=== PATIENT | female | born 1945 | race Caucasian/White ===

== ENCOUNTER 2019-09-19 12:20 | Inpatient (IN) | payer MEDICARE ==
[2019-09-19 13:06] LABS: #Basophils 0.1 thou/uL (0.0-0.2); #Eosinphils 0.1 thou/uL (0.0-0.7); #Lymphocytes 1.9 thou/uL (1.20-3.40); #Monocytes 0.4 thou/uL (0.11-0.59); #Neutrophils 3.8 thou/uL (1.40-6.50); %Basophils 0.8 % (0.0-1.0); %Eosinophils 1.7 % (0.0-10.0); %Lymphocytes 30.4 % (21.0-51.0); %Monocytes 6.8 % (0.0-10.0); %Neutrophils 60.3 % (42.0-75.0); Hemoglobin 10.3 g/dL (12.0-16.0); Mean Corpuscular HGB CONC 34.7 g/dL (32.0-36.0); Mean Corpuscular Hemoglobin 36.5 pg (27.0-31.0); Mean Platelet Volume 7.9 fL (7.4-10.4); Platelet Count 230 thou/uL (130-400); RBC Distribution Width 13.5 % (11.5-14.5); Red Blood Cell (RBC) Count 2.82 mill/uL (4.20-5.40); White Blood Cell (WBC) Count 6.3 thou/uL (4.8-10.8)
[2019-09-19 13:26] LABS: ALT (SGPT) 9 U/L (8-55); AST (SGOT) 11 U/L (5-34); Albumin 3.7 g/dL (3.4-4.8); Alkaline Phosphatase 113 U/L (40-110); Anion Gap 12 mmol/L (10-20); BUN (Urea Nitrogen) 17 mg/dL (9.8-20.1); Bilirubin, Total 1.1 mg/dL (0.2-1.2); CK (CPK) 121 U/L (29-168); Calc. Creatinine Clearance 0 mL/min (70-130); Calcium 9.4 mg/dL (7.8-10.44); Carbon Dioxide 26 mmol/L (23-31); Chloride 104 mmol/L (98-107); Estimated GFR-MDRD 54; Glucose 430 mg/dL (83-110); Lipase 14 U/L (8-78); Protein, Total 5.7 g/dL (6.0-8.3); Sodium 138 mmol/L (136-145)
--- NOTE | 2019-09-19 13:27 | RAD ---
XR Chest 1 View Portable HISTORY: Chest pain COMPARISON: None. FINDINGS: Heart size is within normal limits. There are atherosclerotic changes of the aorta. The abdoulaye gs are clear of infiltrates. IMPRESSION: No active intrathoracic disease.
[2019-09-19 13:48] LABS: CKMB 1.2 ng/mL (0-6.6)
[2019-09-19] MEDS ORDERED: Nitroglycerin 2% Ointment 1 INCH/1 GM Packet ONE (14:08)
--- NOTE | 2019-09-19 14:28 | CT ---
CT HEAD WITHOUT CONTRAST: INDICATIONS: Altered mental status. FINDINGS: There is moderate chronic microvascular ischemic disease of the cerebral symptomatic. Compensatory di latation of the ventricular system is present. Notably, the left frontal horn with an adjacent remote lacunar infarction at the left basal ganglia. Global atrophy is present, mild in degree. The imaged paranasal sinuses are clear. IMPRESSION: 1. No acute intracranial hemorrhage or mass effect. 2. Moderate chronic ischemic disease, remote lacunar infarction and parenchymal atrophy. POS: [facility]
[2019-09-19] MEDS ORDERED: Aspirin Chewable 81 MG TAB ONE (14:34)
[2019-09-19 15:20] LABS: Bacteria/HPF None Seen HPF (None Seen); Bilirubin Negative (Negative); Blood, Urine Negative (Negative); Clarity Clear (Clear); Glucose, Urine (Dipstick) Greater than 1000 mg/dL (Negative); Leukocyte 75 Leu/uL (Negative); Nitrite Negative (Negative); Protein, Urine (Dipstick) Negative (Neg-Trace); RBC/HPF 0-3 HPF (0-3); Squamous Epithelial 0-3 HPF (0-3); Urobilinogen Normal mg/dL (Less than 2); WBC/HPF 0-3 HPF (0-3)
--- NOTE | 2019-09-19 15:37 | PDOC.FPRHP ---
- History of Present Illness Chief Complaint: chest pain History of Present Illness: Patient is a 74F with PMHx of CAD (3 stents), DM2, osteoporosis Chest pain started 2-3 weeks ago, worsened starting this past wednesday. Patient has been under stress because she is undergoing a move from [place]. Has not been lifting furniture. Patient reports she took her nitroglycerin and it seemed to help up until yesterday when her BP started to be 90s/50s. Describes the pain as sharp pain that radiated across her chest, worse with exertion. This pain is different than what she has experienced in the past, as prior pain was usually dull and treated with nitroglycerin but this pain was sharp. Denies current cp. Endorses occasional sob and light-headedness with standing. Reports that she has been vomiting since last night and has been having some abdominal pain. Has chronic constipation Had heart sx in 2014- had 3 cardiac stents placed. ED Course: 324mg asa, nitro paste - Allergies/Adverse Reactions Allergies Allergy/AdvReac Type Severity Reaction Status Date / Time morphine Allergy Verified 09/19/19 17:42 - Home Medications Medication Instructions Recorded Confirmed Type Atorvastatin Calcium 40 mg PO HS 09/19/19 09/19/19 History Clopidogrel Bisulfate [Clopidogrel] 75 mg PO DAILY 09/19/19 09/19/19 History Escitalopram Oxalate 10 mg PO DAILY 09/19/19 09/19/19 History Isosorbide Dinitrate [Isordil] 10 mg PO BID 09/19/19 09/19/19 History Levothyroxine Sodium [Levoxyl] 50 mcg PO DAILY 09/19/19 09/19/19 History Metoprolol Succinate [Toprol XL] 50 mg PO BID 09/19/19 09/19/19 History Nystatin [Nystatin Powder] 1 applic TOP BID 09/19/19 09/19/19 History - History PMHx: CAD (3 stents), IDDM2, osteoporosis PSHx: bilateral eye sx, L arm lumpectomy, L foot sx, R hip sx, appendectomy, cholecystectomy, , hysterectomy FHx: CAD: father (passed at 64 of [place]), brother ([place] at 62), grandfather HLD: father, mother Social: no smoking hx, no etoh sx, no drug use - Review of Systems General: denies: fever/chills, night sweats Eyes: denies: eye pain, vision changes ENT: denies: nasal congestion, rhinorrhea Respiratory: reports: shortness of breath. denies: cough Cardiovascular: reports: chest pain, edema Gastrointestinal: reports: nausea, vomiting, constipation Genitourinary: denies: dysuria, discharge Skin: denies: jaundice, itching Musculoskeletal: reports: swelling. denies: stiffness Neurological: denies: syncope, seizure - Vital signs BP: [159/74] HR: [70] RR: [20] Tmax: [98.8] Pox: [98]% on [RA] Wt: [90.7kg] - Physical Exam Constitutional: NAD, awake, alert and oriented HEENT: MMM, other (Right eye droop (false eye); patient is legally blind; hard of hearing) Neck: supple, FROM Chest: no-tender to palpation, no lesions Heart: RRR, normal S1/S2 Lungs: CTAB, no wheezing Abdomen: soft Musculoskeletal: normal structure, ROM grossly normal Neurological: CN II-XII intact, normal sensation Skin: no rash/lesions, no jaundice Heme/Lymphatic: no unusual bruising or bleeding, no purpura Psychiatric: normal mood and affect, good judgment and insight FMR H&P: Results - Labs Result Diagrams: 09/19/19 12:51 09/19/19 12:51 Lab results: WBC 6.3 thou/uL (4.8-10.8) 09/19/19 12:51 Hgb 10.3 g/dL (12.0-16.0) L 09/19/19 12:51 Hct 29.7 % (36.0-47.0) L 09/19/19 12:51 MCV 105.0 fL (78.0-98.0) H 09/19/19 12:51 Plt Count 230 thou/uL (130-400) 09/19/19 12:51 Neutrophils % 60.3 % (42.0-75.0) 09/19/19 12:51 Sodium 138 mmol/L (136-145) 09/19/19 12:51 Potassium 4.0 mmol/L (3.5-5.1) 09/19/19 12:51 Chloride 104 mmol/L (98-107) 09/19/19 12:51 Carbon Dioxide 26 mmol/L (23-31) 09/19/19 12:51 BUN 17 mg/dL (9.8-20.1) 09/19/19 12:51 Creatinine 1.00 mg/dL (0.6-1.1) 09/19/19 12:51 Glucose 430 mg/dL (83-110) H 09/19/19 12:51 Calcium 9.4 mg/dL (7.8-10.44) 09/19/19 12:51 Total Bilirubin 1.1 mg/dL (0.2-1.2) 09/19/19 12:51 AST 11 U/L (5-34) 09/19/19 12:51 ALT 9 U/L (8-55) 09/19/19 12:51 Alkaline Phosphatase 113 U/L (40-110) H 09/19/19 12:51 Creatine Kinase 121 U/L (29-168) 09/19/19 12:51 CK-MB (CK-2) 1.2 ng/mL (0-6.6) 09/19/19 12:51 B-Natriuretic Peptide 127.6 pg/mL (0-100) H 09/19/19 12:51 Serum Total Protein 5.7 g/dL (6.0-8.3) L 09/19/19 12:51 Albumin 3.7 g/dL (3.4-4.8) 09/19/19 12:51 Lipase 14 U/L (8-78) 09/19/19 12:51 Urine Ketones Negative mg/dL (Negative) 09/19/19 15:03 Urine Blood Negative (Negative) 09/19/19 15:03 Urine Nitrite Negative (Negative) 09/19/19 15:03 Ur Leukocyte Esterase 75 Renetta/uL (Negative) A 09/19/19 15:03 Urine RBC 0-3 HPF (0-3) 09/19/19 15:03 Urine WBC 0-3 HPF (0-3) 09/19/19 15:03 Ur Squamous Epith Cells 0-3 HPF (0-3) 09/19/19 15:03 Urine Bacteria None Seen HPF (None Seen) 09/19/19 15:03 - Radiology Interpretation Chest x-ray Status: report reviewed by me (Negative for acute processes) CT scan - head Status: report reviewed by me (negative for acute processes; remote lacunar infarct) FMR H&P: A/P - Problem List (1) Chest pain, rule out acute myocardial infarction Current Visit: Yes Status: Acute Code(s): R07.9 - CHEST PAIN, UNSPECIFIED (2) DM2 (diabetes mellitus, type 2) Current Visit: Yes Status: Chronic (3) Osteoporosis Current Visit: Yes Status: Chronic Code(s): M81.0 - AGE-RELATED OSTEOPOROSIS W/O CURRENT PATHOLOGICAL FRACTURE (4) CAD (coronary artery disease) Current Visit: Yes Status: Chronic Code(s): I25.10 - ATHSCL HEART DISEASE OF [place] CORONARY ARTERY W/O ANG PCTRS - Plan 74F with PMHx of CAD (3 stents), IDDM2, osteoporosis, depression admitted for cp r/o #Hx of CAD, CP r/o -typical cp with atypical features, as chest ttp -hx of CAD with 3 stents -nitro seemed to improve pain originally, then stopped working -TTE -cardiac stress test, hold home metoprolol -nitrostat prn -FLP -possible cards consult pending results of testing -continue home statin #IDDM2 -patient does not know the dosing of her insulin -hyperglycemia protocol -ISS for now #Osteoporosis -continue home meds #Depression -continue home meds #Macrocytic Anemia -MCV 105 -H/H: 10.3/29.7 -B12 and folate pending Diet: HH, NPO at midnight Dispo: admitted for cp r/o; will anticipate echo and stress test with possible cardiology consult pending results Code: DNR FMR H&P: Upper Level - Plan Date/Time: 09/19/19 1536 Sarwat Jaimes DO, have evaluated this patient and agree with findings/plan as outlined by internetworking technician resident. Pertinent changes/additions are listed here. This is a 74 yo female with a pmh of IDDM, HTN, CAD who presents to the ER with a cc of chest pain. She reports pain for the last 2 weeks that was managed with her home nitro. The pain worsened acutely on Wednesday when she was moving into a new apartment. She reports the pain was not improved with her nitro at that point. Her daughter at bedside states that earlier today, she was confused and did not know who she was. This event prompted her being brought in. She did not have any pain when she had her stents placed 4 years ago In addition, she reports having long standing constipation and abdominal pain. She uses laxatives and stool softeners in conjunction with manual disimpaction. She states having loose stools following these episodes. She has used this strategy up to the present. Objective: General: NAD, AAOx3 Cardio: RRR, no murmur, tenderness to palpation on her chest, it is difficult for pt to explain if this is the same pain or not Respiratory: CTAB Abdomen: RUQ pain, negative ford's sign Please see internetworking technician note for further information. A/P Typical chest pain, Unstable angina vs. NSTEMI type 2 -Admit to tele -Continue nitro -EKG shows no ST changes suggestive of ischemia -Trending troponins, indeterminant at this time -Stress in the morning CAD -3 stents in 2014 -Continue home medications, pending med rec IDDM, uncontrolled -Family is unsure of her current medication regimen -hypoglycemic protocol, SSI Macrocytic anemia -RBC folate/ B12 NHUNG vs CKD, no labs to compare -Fluid resuscitation -Repeat BMP Code: DNAR, confirmed by patient, decisional at the time Prophylaxis: SCDs Family: Daughter at beside Fluids: LR 120 ml/hr Diet: NPO at midnight Disposition: DC in 1-2 days PCP: NOELLE Addendum - Attending - Attending Attestation Date/Time: 09/19/191953 I personally evaluated the patient and discussed the management with Dr. Bartlett. I agree with the History, Examination, Assessment and Plan documented above with any addition or exceptions noted below. Hallie experienced CP while I was examining her. It is made worse by palpation of chest wall and last minutes. EKG obtained during CP episode was normal sinus rhythm without ischemic changes. BP was noted to be seerly [id number]. a single dose or norvasc po ordered. will also add IV hydralazine prn.
[2019-09-19] MEDS ORDERED: Dextrose 50% Abboject 50 ML SYRINGE SLOW IVP PRN (16:18)
[2019-09-19] MEDS ORDERED: Dextrose 5% in Water 1,000 ML IV PRN (16:18)
[2019-09-19] MEDS ORDERED: Acetaminophen 325 MG TAB PO PRN (16:18)
[2019-09-19 17:15] LABS: Troponin I 0.151 ng/mL (< 0.028)
[2019-09-19] MEDS: Lactated Ringer's 1,000 ML IV SCH (18:10)
[2019-09-19] MEDS: HumaLOG 300 UNITS/3 ML VIAL SC PRN (18:19)
[2019-09-19] MEDS ORDERED: hydrALAZINE 20 MG/ML VIAL SLOW IVP PRN (19:45)
[2019-09-19] MEDS ORDERED: Amlodipine 10 MG TAB PO SCH (19:45)
[2019-09-19 20:55] LABS: Troponin I 0.187 ng/mL (< 0.028)
[2019-09-19] MEDS: Isosorbide Dinitrate 5 MG TAB PO SCH (21:31)
[2019-09-19] MEDS: Atorvastatin Calcium 40 MG TAB PO SCH (21:31)
[2019-09-19] MEDS: Nystatin Powder 15 GM BOT TOP SCH (21:32)
[2019-09-20] MEDS: Lactated Ringer's 1,000 ML IV SCH ×2 (02:29→11:58)
[2019-09-20 02:47] LABS: Troponin I 0.126 ng/mL (< 0.028)
[2019-09-20] MEDS: Isosorbide Dinitrate 5 MG TAB PO SCH ×2 (04:50→21:04)
[2019-09-20 05:17] LABS: #Eosinphils 0.1 thou/uL (0.0-0.7); #Lymphocytes 2.2 thou/uL (1.20-3.40); #Monocytes 0.5 thou/uL (0.11-0.59); #Neutrophils 3.3 thou/uL (1.40-6.50); %Basophils 0.3 % (0.0-1.0); %Eosinophils 2.4 % (0.0-10.0); %Lymphocytes 35.5 % (21.0-51.0); %Monocytes 7.8 % (0.0-10.0); Mean Corpuscular HGB CONC 34.6 g/dL (32.0-36.0); Mean Corpuscular Hemoglobin 36.7 pg (27.0-31.0); Mean Platelet Volume 7.5 fL (7.4-10.4); Platelet Count 220 thou/uL (130-400); RBC Distribution Width 13.7 % (11.5-14.5); Red Blood Cell (RBC) Count 2.74 mill/uL (4.20-5.40); White Blood Cell (WBC) Count 6.2 thou/uL (4.8-10.8)
[2019-09-20 05:20] LABS: Hemoglobin A1c 8.5 % (4.0-6.0)
[2019-09-20] MEDS: Ondansetron ODT 4 MG TAB PO PRN ×2 (05:28→12:08)
[2019-09-20] MEDS: Levothyroxine Sodium 50 MCG TAB PO SCH (05:29)
[2019-09-20] MEDS: Clopidogrel Bisulfate 75 MG TAB PO SCH (05:30)
[2019-09-20] MEDS: Escitalopram Oxalate 10 mg Tablet PO SCH (05:30)
[2019-09-20 05:38] LABS: Anion Gap 10 mmol/L (10-20); BUN (Urea Nitrogen) 12 mg/dL (9.8-20.1); Calc. Creatinine Clearance 92 mL/min (70-130); Calcium 9.4 mg/dL (7.8-10.44); Carbon Dioxide 29 mmol/L (23-31); Cardiac Risk 3.2 (Less than 4.5); Chloride 105 mmol/L (98-107); Cholesterol 145 mg/dl (< 200 Desired); Estimated GFR-MDRD 76; Glucose 170 mg/dL (83-110); HDL Cholesterol 46 mg/dL (>60 Neg Risk); LDL Cholesterol, Calculated 77 mg/dL; Potassium 4.1 mmol/L (3.5-5.1); Sodium 140 mmol/L (136-145); Triglycerides 111 mg/dL (Less than 150)
--- NOTE | 2019-09-20 06:18 | PDOC.FM ---
- Subjective Subjective: Mrs. Duong was resting comfortably in her hospital bed at the time of evaluation. She had a bag next to her in bed, but denied any active N/V. She denied any worsening of her symptoms since admission, and much of the evaluation was spent discussing her HPI. She confirmed that she was DNAR and that she did not want aggressive life- saving measures to be implemented should she go into cardiac arrest. - Objective Vital Signs & Weight: Vital Signs (12 hours) Temp Pulse Resp BP Pulse Ox 09/20/19 04:00 98.0 F 83 18 149/68 H 98 09/19/19 23:46 77 158/73 H 09/19/19 20:00 96 09/19/19 19:46 75 09/19/19 19:32 98.4 F 75 18 197/81 H 98 Weight Weight 90.083 kg Result Diagrams: 09/20/19 04:41 09/20/19 04:41 Phys Exam - Physical Examination Constitutional: NAD HEENT: PERRLA, moist MMs, sclera anicteric, oral pharynx no lesions Right prosthetic eye Neck: no JVD, supple, full ROM Respiratory: no wheezing, no rales, no rhonchi, clear to auscultation bilateral Cardiovascular: RRR, no significant murmur, no rub Gastrointestinal: soft, non-tender, no distention Musculoskeletal: no edema Difficult to assess due to body habitus Neurological: non-focal, moves all 4 limbs Psychiatric: normal affect Skin: no rash Dx/Plan - Plan Plan: 1. Typical Chest Pain, Unstable Angina vs. NSTEMI Type 2 -Continue Nitro for CP -EKG: NSR w/ occasional PACs - no signs of ischemia -TSH: 1.27 -Mg: Pending / Phos: Pending -Trops: 0.127, 0.151, 0.187, 0.126 (I) -Plan for Stress Test on 09/20 -Consider Cardiology consult based on Stress Test results -Triglycerides(111) / Cholesterol (145) / HDL (46) / LDL (77) 2. CAD -Patient reportedly had 3 stents placed in 2014, unsure if she's ever had anMI -Atorvastatin 40 mg PO daily -Verify home medication regimen 3. DM, uncontrolled -Glucose: 170 on 09/20 -HgA1C: 8.5 -Family is unsure of current medication regimen -Hypoglycemia Protocol -Moderate SSI 4. Macrocytic Anemia -Folate: / B12: 5. NHUNG vs CKD -Cr:1.0 on admission - 0.74 on09/20 -No previous labs for comparison -LR @ 120 ml/hr -Consider DC fluids Code: DNAR Diet: NPO @ 0001 Activity: Ad payton DVT PPx: SCDs Dispo: Patient currently stable on [place] Floor. Await results of Stress Test and consider Cardiology consult. Continue to manage other comorbid conditions and plan for risk stratification and medication optimization upon DC. Expected LOS < 48H. Addendum - Attending - Attending Attestation Date/Time: 09/20/19 2914 I personally evaluated the patient and discussed the management with Dr. Metz I agree with the History, Examination, Assessment and Plan documented above with any addition or exceptions noted below- Patient reports chest pain now resolved. Denies any SOB. Afebrile VSS. A/P: 1) ACS - indeterminate troponins. Will consult cardiology. 2) Newly diagnosed DM- will start diabetic education. Start diabetes meds.
[2019-09-20] MEDS: Nystatin Powder 15 GM BOT TOP SCH ×2 (08:22→21:09)
[2019-09-20] MEDS ORDERED: Aspirin 325 mg Enteric Coated Tablet PO SCH (09:00)
--- NOTE | 2019-09-20 15:03 | CON ---
DATE OF CONSULTATION: 09/20/2019 REASON FOR CONSULTATION: Acute coronary syndrome, borderline troponins, coronary artery disease. HISTORY OF PRESENT ILLNESS: Ms. Hallie Duong is a 74-year-old woman. The patient has a history of multivessel coronary artery disease according to her history. She said in 2014, she underwent stent implantation. She has had 3 coronary stents placed in heart arteries. There is a 4th lesion that she said it was not treated with an 80% lesion. This is all according to her recollection. The patient states she has done well until about the last 2 weeks. She has been having increasing amounts of chest pain and pressure with low-level activity and finally at rest. Family came to the emergency room for some of the chest pressure at rest, starting on the right side of her chest and its brought all the way across her chest. The patient also feels short of breath when this occurs. The patient states that she has been having more problem with ambulation, her balance has been poor, her vision is very poor, and she is unable to get around except with quite a bit of difficulty. Her family member helps her a lot with her medications and they have moved from [place] to this area. The patient's overall health has been declining. MEDICATIONS: 1. Atorvastatin 40 mg a day. 2. Aspirin 81 mg a day. 3. Metoprolol 50 mg twice a day. 4. Isosorbide. PAST SURGICAL HISTORY: 1. Bilateral eye surgery. She is only able to see. She is very vague at outlines of forms, but no details. 2. History of hip surgery. 3. Cholecystectomy. 4. Hysterectomy. FAMILY HISTORY: Father at age 64 of myocardial infarction. Brother of myocardial infarction at 62. SOCIAL HISTORY: No smoking. REVIEW OF SYSTEMS: CONSTITUTIONAL: No significant weight gain or loss. Vision , no changes. Hearing, no changes. PULMONARY: No cough or wheezing. GASTROINTESTINAL: No nausea, vomiting, or diarrhea currently, but she had some nausea earlier. SKIN: No rashes. NEUROLOGIC: No unilateral weakness or numbness. PSYCHIATRIC: No unusual depression or anxiety. PHYSICAL EXAMINATION: GENERAL: This is a very pleasant, but somewhat frail-appearing elderly woman 74 years of age. VITAL SIGNS: Blood pressure 143/67, pulse 86. HEENT: Eyes, sclerae are nonicteric. 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 Neck veins are normal. Carotid normal upstrokes. LUNGS: Clear. CARDIAC: Normal S1, normal S2. There is no murmur, rub, or gallop. ABDOMEN: Obese, nontender. No hepatosplenomegaly. EXTREMITIES: Warm and dry. No clubbing or cyanosis. There is no significant edema. IMAGING STUDIES: EKG did not show any acute changes, but the troponin level did go to 0.187 high indeterminate range. ASSESSMENT: 1. Acute coronary syndrome. 2. Blood sugar 256 compatible with diabetes. 3. Probably multivessel coronary artery disease. 4. Visual impairment. PLAN: 1. We tried to obtain all records to see where she what stent she has had placed and whether placed. 2. Proceed to cardiac catheterization. Discussed risk of stroke, heart attack, iodine allergy, loss of blood supply to leg or kidney, stent thrombosis, stent restenosis. All discussed with the patient and family. They understand and wished to proceed. Job ID: [id number] MTDD
[2019-09-20] MEDS: Nitroglycerin 0.4 MG TAB (25 Tab Bottle) PO PRN ×2 (15:33→21:03)
[2019-09-20] MEDS ORDERED: Enoxaparin Sodium 100 MG/ML SYRINGE SC SCH (16:15)
[2019-09-20 16:38] LABS: Magnesium 1.6 mg/dL (1.6-2.6)
[2019-09-20 16:42] LABS: Troponin I 0.074 ng/mL (< 0.028)
[2019-09-20] MEDS: HumaLOG 300 UNITS/3 ML VIAL SC PRN (17:28)
[2019-09-20] MEDS ORDERED: FLU VACC TS2019-20(65YR UP)/PF 180 MCG/0.5 ML SYRINGE IM ONE (18:15)
[2019-09-20] MEDS: Atorvastatin Calcium 40 MG TAB PO SCH (21:05)
[2019-09-20] MEDS: Metoprolol Tartrate 50 MG TAB PO SCH (21:05)
[2019-09-21 05:49] LABS: CKMB 0.7 ng/mL (0-6.6)
[2019-09-21] MEDS: Metoprolol Tartrate 50 MG TAB PO SCH ×2 (06:08→20:33)
[2019-09-21] MEDS: Escitalopram Oxalate 10 mg Tablet PO SCH (06:08)
[2019-09-21] MEDS: Clopidogrel Bisulfate 75 MG TAB PO SCH (06:08)
[2019-09-21] MEDS: Sodium Chloride 0.9% 1,000 ML IV SCH ×3 (06:09→22:16)
[2019-09-21] MEDS: Levothyroxine Sodium 50 MCG TAB PO SCH (06:10)
[2019-09-21] MEDS ORDERED: Lidocaine 1% (PF) 30 ML VIAL ONE (06:45)
[2019-09-21] MEDS ORDERED: Heparin (Artline) 1,000 ML ONE (06:45)
--- NOTE | 2019-09-21 06:49 | PDOC.FM ---
- Subjective Subjective: Mrs. Duong was resting comfortably in bed at the time of evaluation. She complained of an episode of chest pain yesterday afternoon, with occasional SOB while ambulating around the room. Additionally, she stated that she felt constipated and would like some medicine to help her have a BM. - Objective Vital Signs & Weight: Vital Signs (12 hours) Temp Pulse Resp BP Pulse Ox 09/21/19 04:00 98.1 F 73 18 134/62 96 09/21/19 00:00 86 148/57 H 09/20/19 20:00 96 09/20/19 19:50 98.8 F 102 H 18 136/64 94 L Weight Weight 90.083 kg I&O: 09/19/19 09/20/19 09/21/19 06:59 06:59 06:59 Intake Total 960 Balance 960 Result Diagrams: 09/21/19 07:00 09/21/19 04:42 Phys Exam - Physical Examination Constitutional: NAD HEENT: moist MMs, sclera anicteric, oral pharynx no lesions Neck: supple, full ROM Respiratory: no wheezing, no rales, no rhonchi, clear to auscultation bilateral Cardiovascular: RRR, no significant murmur, no rub Gastrointestinal: soft, non-tender, no distention Musculoskeletal: no edema, pulses present Neurological: non-focal, moves all 4 limbs Skin: no rash Dx/Plan - Plan Plan: 1. Typical Chest Pain, Unstable Angina vs. NSTEMI Type 2 -Continue Nitro for CP -EKG (On Presentation): NSR w/ occasional PACs - no signs of ischemia -Reportedly had 2H of asymptomatic A-Fib w/ HR in 60s-80s this AM, currently in NSR -TSH: 1.27 -M.6 / Phos: 3.0 -Trops: 0.127, 0.151, 0.187, 0.126 (I) -Plan for Heart Cath on 09/21, per Dr. William (Cardiology) -Triglycerides(111) / Cholesterol (145) / HDL (46) / LDL (77) 2. CAD -Patient reportedly had 3 stents placed in 2014, unsure if she's ever had anMI -Atorvastatin 40 mg PO daily -Verify home medication regimen 3. DM, uncontrolled -Glucose: 268 on 09/21 -HgA1C: 8.5 -Family is unsure of current medication regimen -Hypoglycemia Protocol -Moderate SSI 4. Macrocytic Anemia -Folate: 14/ B12: <109 5. NHUNG vs CKD -Cr: 1.0 on admission - 0.74 on09/20 -No previous labs for comparison -LR @ 120 ml/hr -Consider DC fluids Code: IRIS Diet: NPO @ 0001 Activity: Ad payton DVT PPx: SCDs Dispo: Patient currently stable on [place] Floor. Await results of Heart Cath later this AM. Continue to manage other comorbid conditions and plan for risk stratification and medication optimization upon DC. Expected LOS < 48H. Addendum - Attending - Attending Attestation Date/Time: 09/21/19 9130 I personally evaluated the patient and discussed the management with Dr. Metz I agree with the History, Examination, Assessment and Plan documented above with any addition or exceptions noted below- Patient without complaints. Just returned from cath. Afebrile VSS A/P: 1) ACS - s/p cath today with restenosis of stents. Plan for CV surgery consult for possible CABG 2) DM- poorly controlled; monitor accuchecks and adjust meds. 3) HTN- continue home meds and adjust as indicated. 4) hypothyroidism - continue levothyroxine.
--- NOTE | 2019-09-21 07:03 | EKG ---
Test Reason : STAT Blood Pressure : / mmHG Vent. Rate : 075 BPM Atrial Rate : 075 BPM P-R Int : 180 ms QRS Dur : 088 ms QT Int : 396 ms P-R-T Axes : 059 -08 048 degrees QTc Int : 442 ms Normal sinus rhythm Normal ECG No previous ECGs available Confirmed by DR. David BONILLA (3) on 09/21/2019 7:02:49 AM Referred By: GRACE Confirmed By:DR. David BONILLA
[2019-09-21 07:20] LABS: #Basophils 0.1 thou/uL (0.0-0.2); #Eosinphils 0.2 thou/uL (0.0-0.7); #Lymphocytes 2.5 thou/uL (1.20-3.40); #Monocytes 0.4 thou/uL (0.11-0.59); %Basophils 0.8 % (0.0-1.0); %Eosinophils 2.9 % (0.0-10.0); %Monocytes 7.1 % (0.0-10.0); %Neutrophils 49.1 % (42.0-75.0); Hemoglobin 9.9 g/dL (12.0-16.0); Mean Corpuscular HGB CONC 32.8 g/dL (32.0-36.0); Mean Platelet Volume 7.8 fL (7.4-10.4); Platelet Count 221 thou/uL (130-400); RBC Distribution Width 13.7 % (11.5-14.5); Red Blood Cell (RBC) Count 2.82 mill/uL (4.20-5.40); White Blood Cell (WBC) Count 6.2 thou/uL (4.8-10.8)
[2019-09-21 07:31] LABS: Anion Gap 14 mmol/L (10-20); BUN (Urea Nitrogen) 13 mg/dL (9.8-20.1); Calc. Creatinine Clearance 87 mL/min (70-130); Calcium 9.3 mg/dL (7.8-10.44); Carbon Dioxide 23 mmol/L (23-31); Chloride 105 mmol/L (98-107); Estimated GFR-MDRD 72; Glucose 273 mg/dL (83-110); Sodium 138 mmol/L (136-145)
[2019-09-21] MEDS ORDERED: Nitroglycerin 2% Ointment 1 INCH/1 GM Packet ONE ×2 (08:18→08:19)
[2019-09-21] MEDS ORDERED: Nitroglycerin 4.9 GM Bottle ONE (08:18)
[2019-09-21] MEDS ORDERED: Sodium Chloride 0.9% 200 ML IV PRN (08:40)
[2019-09-21] MEDS ORDERED: Nitroglycerin 0.4 MG TAB (25 Tab Bottle) SL PRN (08:40)
[2019-09-21] MEDS ORDERED: Enoxaparin Sodium 100 MG/ML SYRINGE SC SCH (09:00)
[2019-09-21] MEDS ORDERED: Aspirin 325 mg Enteric Coated Tablet PO SCH (09:00)
[2019-09-21] MEDS ORDERED: Metoprolol Tartrate 5 MG/5 ML VIAL ONE (09:07)
[2019-09-21] MEDS ORDERED: Amlodipine 5 MG TAB PO SCH (10:00)
[2019-09-21] MEDS: Aspirin 81 mg Enteric Coated Tablet PO SCH (11:04)
[2019-09-21] MEDS: Nitroglycerin 0.4 MG TAB (25 Tab Bottle) PO PRN ×2 (11:05→13:09)
[2019-09-21] MEDS: HumaLOG 300 UNITS/3 ML VIAL SC PRN ×2 (11:49→18:10)
[2019-09-21] MEDS: Nystatin Powder 15 GM BOT TOP SCH ×2 (13:08→20:33)
[2019-09-21] MEDS: Isosorbide Dinitrate 5 MG TAB PO SCH ×2 (13:09→20:33)
[2019-09-21] MEDS ORDERED: Polyethylene Glycol 3350 17 GM Packet PO SCH (13:45)
[2019-09-21 16:09] LABS: Folate,Hemolysate 252.9 ng/mL (Not Estab.); RBC Folate Test Component 872 ng/mL (>498)
[2019-09-21] MEDS ORDERED: Insulin Glargine 20 UNITS in Pre-Filled Syringe 1 EACH SC SCH (17:00)
--- NOTE | 2019-09-21 17:19 | EKG ---
Test Reason : Blood Pressure : / mmHG Vent. Rate : 089 BPM Atrial Rate : 089 BPM P-R Int : 000 ms QRS Dur : 086 ms QT Int : 372 ms P-R-T Axes : 000 -19 002 degrees QTc Int : 452 ms sinus vs low atrial pacemaker site Septal infarct , age undetermined Abnormal ECG When compared with ECG of 19-SEP-2019 19:38, (Unconfirmed) Junctional rhythm has replaced Sinus rhythm Septal infarct is now Present Nonspecific T wave abnormality now evident in Inferior leads Confirmed by DR. David BONILLA (3) on 09/21/2019 5:18:34 PM Referred By: RICH Confirmed By:DR. David BONILLA
--- NOTE | 2019-09-21 17:23 | EKG ---
Test Reason : Blood Pressure : / mmHG Vent. Rate : 074 BPM Atrial Rate : 144 BPM P-R Int : 000 ms QRS Dur : 088 ms QT Int : 388 ms P-R-T Axes : 000 005 -06 degrees QTc Int : 430 ms Atrial fibrillation Septal infarct (cited on or before 20-SEP-2019) Nonspecific ST-T changes Abnormal ECG When compared with ECG of 20-SEP-2019 16:23, (Unconfirmed) Atrial fibrillation has replaced Junctional rhythm Confirmed by DR. David BONILLA (3) on 09/21/2019 5:23:23 PM Referred By: CHRISTOPHER Confirmed By:DR. David BONILLA
[2019-09-21] MEDS: Atorvastatin Calcium 40 MG TAB PO SCH (20:33)
--- NOTE | 2019-09-21 22:04 | CON ---
DATE OF CONSULTATION: HISTORY OF PRESENT ILLNESS: This is a 74-year-old female who had moved here from [place], [place] to be closer to her sister, because the patient was having difficulty taking care of herself. She was moving into her apartment. She states across the street from [facility] when she began developing frequent episodes of chest pain. She was brought to the hospital where she had a slight troponin bump. She does have a cardiac history, previously had stents in her 3 main coronary arteries in 2014 in [place], [place]. She herself lives in [place], [place]. She lived alone. She has risk factors of hypertension and dyslipidemia with no smoking history. She underwent cardiac catheterization today showing gire-af-cwspsdth LAD disease with high-grade lesion just distal to a stent to a bifurcating OM system. She has a distal circumflex diffusely and severely diseased, small and nonbypassable. She has an ostial stent in her right coronary artery with in-stent stenosis of about 70- 80 percent and then the PDA and posterior lateral vessels do not feel well, but appeared to have disease. However, her distal right coronary artery could be bypassed. HOME MEDICATIONS: Include: 1. Atorvastatin 40. 2. Aspirin 81. 3. Metoprolol 50 b.i.d. 4. Isosorbide. 5. Plavix 75 daily, which was continued up through this morning. PAST SURGICAL HISTORY: Presents some difficulty, because the patient states she has had 22 surgeries, but has a rather poor memory, poor historian. The best I can tell is she had a right hip fracture in October of last year after which she was trying to recover, fell about 4 months ago during her walking campaign and since that time has walked much less. In other words, very inactive lifestyle. She otherwise admits to hysterectomy and cholecystectomy. She has had 6 abdominal procedures , but cannot remember what the rest of them are for. She had a skin cancer removed from her left arm. REVIEW OF SYSTEMS: She has very poor vision in her left eye, which is a good eye. She has some urinary incontinence. She denies any other GI symptoms. She does have some back pain. She denies claudication. PHYSICAL EXAMINATION: GENERAL: On examination, she is alert and cooperative. VITAL SIGNS: Height 5 feet 1 inch, weight of 198. BMI of 3.75. Right eye is drooping and she has no vision from it. NECK: No carotid bruits. LUNGS: Clear to auscultation. CARDIAC: Regular rate and rhythm. No murmurs. ABDOMEN: Obese, well-healed midline scar. No aneurysm. EXTREMITIES: She has palpable femoral and popliteal pulses and I do not appreciate pedal pulses. IMAGING STUDIES: Cardiac echo, ejection fraction 55% to 60%. Aortic valve sclerosis, mild mitral regurgitation. She has a baseline anemia of 10.3 of hemoglobin. Sugars have been greater than 200 and an A1c is 8.5. Troponin as mentioned less than 1, but elevated. ADDITIONAL HOME MEDICATIONS: Included: 1. Levothyroxine 50 mcg daily. 2. Nystatin powder b.i.d. 3. Escitalopram 10 mg daily. PLAN: At this time would be to bypass the LAD, the OM1 prior to its bifurcation and her main right coronary artery. I have discussed the surgery, risks, complications and expectations with particular concerns of a slow recovery. When I explained that she likely have to go to a rehab or custodial unit, she states that she thought this will be the case, because she has always responded and recovered quite rapidly. We will anticipate surgery in about 5 days given her dose of Plavix today. Job ID: [id number] MTDD
[2019-09-22] MEDS: Levothyroxine Sodium 50 MCG TAB PO SCH (05:27)
--- NOTE | 2019-09-22 05:36 | PDOC.FM ---
- Subjective Subjective: Mrs. Duong was finishing breakfast and resting comfortably in her hospital bed at the time of evaluation. She denied any acute overnight events, specifically with regard to chest pain or shortness of breath. Per the Telemetry utility locate technician, she continued to remain in rate controlled A -Fib. - Objective Vital Signs & Weight: Vital Signs (12 hours) Temp Pulse Resp BP Pulse Ox 09/22/19 03:37 98.2 F 74 18 139/63 94 L 09/21/19 20:30 98.1 F 75 18 155/86 H 95 Weight Weight 90.083 kg I&O: 09/20/19 09/21/19 09/22/19 06:59 06:59 06:59 Intake Total 960 1420 Output Total 1440 Balance 960 -20 Result Diagrams: 09/21/19 07:00 09/21/19 04:42 Phys Exam - Physical Examination Constitutional: NAD HEENT: PERRLA, moist MMs, sclera anicteric, oral pharynx no lesions Right ocular prosthesis Neck: supple, full ROM Respiratory: no wheezing, no rales, no rhonchi, clear to auscultation bilateral Cardiovascular: no significant murmur, no rub Irregularly irregular Gastrointestinal: soft, non-tender, no distention Patient still has not had a bowel movement Musculoskeletal: no edema, pulses present Neurological: non-focal, moves all 4 limbs Psychiatric: normal affect Skin: no rash Dx/Plan - Plan Plan: 1. Typical Chest Pain, Unstable Angina vs. NSTEMI Type 2 -Continue Nitro for CP -EKG (On Presentation): NSR w/ occasional PACs - no signs of ischemia -Intermittent periods of rate-controlled A-Fib, asymptomatic -TSH: 1.27 -M.6 / Phos: 3.0 -Trops: 0.127, 0.151, 0.187, 0.126 (I) -Cardiology Consult: Heart Cath on 09/21 revealed significant blockage of LAD -CV Surgery Consult: Plan for CABG on 09/26, DC'd Plavix on 09/21 -Triglycerides(111) / Cholesterol (145) / HDL (46) / LDL (77) 2. CAD -Patient reportedly had 3 stents placed in 2014, unsure if she's ever had an IA -Additional stent placed during 09/21 heart cath -Atorvastatin 40 mg PO daily -Verify home medication regimen 3. DM, uncontrolled -Glucose: Awaiting AM lab results -HgA1C: 8.5 -Family is unsure of current medication regimen -Hypoglycemia Protocol -Lantus 20U QAM -Moderate SSI 4. Macrocytic Anemia -Folate: 14/ B12: <109 5. NHUNG vs CKD -Cr: 1.0 on admission - Awaiting AM lab results -No previous labs for comparison -LR @ 120 ml/hr -Consider DC fluids Code: DNAR Diet:Heart Healthy / Carbohydrate Conscious Activity: Ad payton DVT PPx: SCDs Dispo: Patient currently stable on [place] Floor. Continue to coordinate closely with Cardiology and CV Surgery as required. Plan for CABG on 09/26, per CV Surgery recommendations. Continue to manage other comorbid conditions. Expected LOS > 48H. Addendum - Attending - Attending Attestation Date/Time: 09/22/19 1101 I personally evaluated the patient and discussed the management with Dr. Metz. I agree with the History, Examination, Assessment and Plan documented above with any addition or exceptions noted below. Increase bp control, change SSI to scheduled and adjust as necessary.
--- NOTE | 2019-09-22 08:31 | PRG ---
DATE OF SERVICE: 09/22/2019 SUBJECTIVE: Ms. Duong is doing fine. No chest pain or pressure. The patient did have some episodes of asymptomatic atrial fibrillation yesterday. The patient is in sinus rhythm now. OBJECTIVE: VITAL SIGNS: Her blood pressure is 177/78, pulse is 78 and regular. LUNGS: Clear. CARDIAC: Normal S1, normal S2. ABDOMEN: Soft, nontender. ASSESSMENT: 1. Three-vessel coronary artery disease. 2. Paroxysmal atrial fibrillation, asymptomatic, probably longstanding. 3. Hypertension. PLAN: 1. She has been started on amlodipine, dose may need to be increased. 2. She is on beta-suri. 3. Add amiodarone, very likely to go into atrial fibrillation postoperatively. 4. We will also add losartan to help with blood pressure. Job ID: [id number]
[2019-09-22] MEDS: Escitalopram Oxalate 10 mg Tablet PO SCH (09:15)
[2019-09-22] MEDS: Amiodarone 200 MG TAB PO SCH ×3 (09:15→21:06)
[2019-09-22] MEDS: Amlodipine 5 MG TAB PO SCH (09:15)
[2019-09-22] MEDS: Isosorbide Dinitrate 5 MG TAB PO SCH ×2 (09:15→21:06)
[2019-09-22] MEDS: Aspirin 81 mg Enteric Coated Tablet PO SCH (09:15)
[2019-09-22] MEDS: Losartan 25 MG TAB PO SCH (09:16)
[2019-09-22] MEDS: Insulin Glargine 20 UNITS in Pre-Filled Syringe 1 EACH SC SCH (09:16)
[2019-09-22] MEDS: Metoprolol Tartrate 50 MG TAB PO SCH ×2 (09:16→21:06)
[2019-09-22] MEDS: Polyethylene Glycol 3350 17 GM Packet PO SCH (09:16)
[2019-09-22] MEDS: Nystatin Powder 15 GM BOT TOP SCH ×2 (09:17→21:07)
[2019-09-22] MEDS ORDERED: Cyanocobalamin 1000 MCG/ML VIAL IM SCH (10:15)
[2019-09-22] MEDS: HumaLOG 300 UNITS/3 ML VIAL SC PRN (13:25)
[2019-09-22] MEDS: Sodium Chloride 0.9% 1,000 ML IV SCH (13:25)
[2019-09-22] MEDS: Atorvastatin Calcium 40 MG TAB PO SCH (21:06)
[2019-09-23 04:57] LABS: #Basophils 0.1 thou/uL (0.0-0.2); #Eosinphils 0.2 thou/uL (0.0-0.7); #Lymphocytes 2.6 thou/uL (1.20-3.40); #Monocytes 0.5 thou/uL (0.11-0.59); %Basophils 1.3 % (0.0-1.0); %Eosinophils 3.2 % (0.0-10.0); %Lymphocytes 40.7 % (21.0-51.0); %Monocytes 8.3 % (0.0-10.0); %Neutrophils 46.5 % (42.0-75.0); Hemoglobin 10.6 g/dL (12.0-16.0); Mean Corpuscular HGB CONC 34.3 g/dL (32.0-36.0); Mean Corpuscular Hemoglobin 36.6 pg (27.0-31.0); Mean Platelet Volume 7.7 fL (7.4-10.4); Platelet Count 247 thou/uL (130-400); RBC Distribution Width 13.8 % (11.5-14.5); Red Blood Cell (RBC) Count 2.89 mill/uL (4.20-5.40); White Blood Cell (WBC) Count 6.5 thou/uL (4.8-10.8)
[2019-09-23 05:22] LABS: ALT (SGPT) 9 U/L (8-55); AST (SGOT) 13 U/L (5-34); Albumin 3.6 g/dL (3.4-4.8); Alkaline Phosphatase 116 U/L (40-110); Anion Gap 10 mmol/L (10-20); BUN (Urea Nitrogen) 14 mg/dL (9.8-20.1); Bilirubin, Total 0.8 mg/dL (0.2-1.2); Calc. Creatinine Clearance 80 mL/min (70-130); Calcium 10.1 mg/dL (7.8-10.44); Carbon Dioxide 28 mmol/L (23-31); Chloride 106 mmol/L (98-107); Estimated GFR-MDRD 66; Globulin 2.5 g/dL (2.4-3.5); Glucose 186 mg/dL (83-110); Potassium 4.1 mmol/L (3.5-5.1); Protein, Total 6.1 g/dL (6.0-8.3); Sodium 140 mmol/L (136-145)
[2019-09-23] MEDS: Levothyroxine Sodium 50 MCG TAB PO SCH (05:27)
[2019-09-23] MEDS: Ondansetron ODT 4 MG TAB PO PRN (05:33)
--- NOTE | 2019-09-23 05:45 | PDOC.FM ---
- Subjective Subjective: Pt asleep upon entering the room. She awakens and states her left calf started hurting with movement yesterday. Pt reports to being feeling anxious about her upcoming CABG on 09/26. Denies any CP, SOB. - Objective MAR Reviewed: Yes Vital Signs & Weight: Vital Signs (12 hours) Temp Pulse Resp BP Pulse Ox 09/23/19 04:00 97.8 F 65 18 143/68 H 95 09/22/19 23:45 126/60 09/22/19 21:05 92 L Weight Weight 88.507 kg I&O: 09/21/19 09/22/19 09/23/19 06:59 06:59 06:59 Intake Total 960 2760 1220 Output Total 1440 Balance 960 1320 1220 Result Diagrams: 09/23/19 04:38 09/23/19 04:38 Phys Exam - Physical Examination Constitutional: NAD HEENT: moist MMs, sclera anicteric right glass eye. Neck: no nodes, no JVD Respiratory: no wheezing, no rales, no rhonchi, clear to auscultation bilateral Cardiovascular: RRR, no significant murmur, no rub Gastrointestinal: soft, non-tender, no distention, positive bowel sounds Musculoskeletal: no edema, pulses present Neurological: non-focal, normal sensation Psychiatric: normal affect, A&O x 3 Skin: no rash, normal turgor, cap refill <2 seconds Dx/Plan (1) Chest pain, rule out acute myocardial infarction Code(s): R07.9 - CHEST PAIN, UNSPECIFIED Status: Acute (2) CAD (coronary artery disease) Code(s): I25.10 - ATHSCL HEART DISEASE OF [place] CORONARY ARTERY W/O ANG PCTRS Status: Chronic (3) DM2 (diabetes mellitus, type 2) Status: Chronic (4) Osteoporosis Code(s): M81.0 - AGE-RELATED OSTEOPOROSIS W/O CURRENT PATHOLOGICAL FRACTURE Status: Chronic (5) Acute kidney injury superimposed on CKD Code(s): N17.9 - ACUTE KIDNEY FAILURE, UNSPECIFIED; N18.9 - CHRONIC KIDNEY DISEASE, UNSPECIFIED Status: Acute (6) Macrocytic anemia with vitamin B12 deficiency Code(s): D51.9 - VITAMIN B12 DEFICIENCY ANEMIA, UNSPECIFIED Status: Chronic - Plan Plan: 1. Anginal Chest Pain -Continue Nitro for CP -EKG (On Presentation): NSR w/ occasional PACs - no signs of ischemia -Intermittent periods of rate-controlled A-Fib, asymptomatic -TSH: 1.27 -M.6 / Phos: 3.0 -Trops: 0.127, 0.151, 0.187, 0.126 (I) -Cardiology Consult: Heart Cath on 09/21 revealed significant blockage of LAD -CV Surgery Consult: Plan for CABG on 09/26, DC'd Plavix on 09/21 -Triglycerides(111) / Cholesterol (145) / HDL (46) / LDL (77) 2. CAD -Patient reportedly had 3 stents placed in 2014, unsure if she's ever had an [place] -Additional stent placed during 09/21 heart cath -Atorvastatin 40 mg PO daily - CABG planned for 09/26, per CV surg. 3. DM, uncontrolled -Glucose: Awaiting AM lab results -HgA1C: 8.5 -Family is unsure of current medication regimen -Hypoglycemia Protocol -Lantus 20U QAM -Moderate SSI 4. Macrocytic Anemia -Folate: 14/ B12: <109 - place on B12 supplementation at D/C 5. NHUNG vs CKD -Cr: 1.0 on admission - Awaiting AM lab results -No previous labs for comparison -LR @ 120 ml/hr -Consider DC fluids 6. HTN - Dr. William added amlodipine and losartan to regimen - cont B-suri 7. Paryoxysmal A fib - Dr. William added amiodarone as her risk of a fib is high post CABG. Code: DNAR Diet:Heart Healthy / Carbohydrate Conscious Activity: Ad payton DVT PPx: SCDs Dispo: Patient currently stable on Telemetry Floor. Continue to coordinate closely with Cardiology and CV Surgery as required. Plan for CABG on 09/26, per CV Surgery recommendations. Continue to manage other comorbid conditions. Expected LOS > 48H. Addendum - Attending - Attending Attestation Date/Time: 09/23/19 8951 I personally evaluated the patient and discussed the management with Dr. Rodirguez. I agree with the History, Examination, Assessment and Plan documented above with any addition or exceptions noted below. Patient is anxious about the cabg scheduled for the upcoming week. She denies other complaints.
[2019-09-23] MEDS: Isosorbide Dinitrate 5 MG TAB PO SCH ×2 (09:02→20:37)
[2019-09-23] MEDS: Aspirin 81 mg Enteric Coated Tablet PO SCH (09:03)
[2019-09-23] MEDS: Escitalopram Oxalate 10 mg Tablet PO SCH (09:03)
[2019-09-23] MEDS: Losartan 25 MG TAB PO SCH (09:03)
[2019-09-23] MEDS: Amlodipine 5 MG TAB PO SCH (09:04)
[2019-09-23] MEDS: Amiodarone 200 MG TAB PO SCH ×3 (09:04→20:37)
[2019-09-23] MEDS: Metoprolol Tartrate 50 MG TAB PO SCH ×2 (09:05→20:37)
[2019-09-23] MEDS: Enoxaparin Sodium 40 MG/0.4 ML SYRINGE SC SCH (09:06)
[2019-09-23] MEDS: Polyethylene Glycol 3350 17 GM Packet PO SCH (09:09)
[2019-09-23] MEDS: Insulin Glargine 20 UNITS in Pre-Filled Syringe 1 EACH SC SCH (09:11)
[2019-09-23] MEDS: HumaLOG 300 UNITS/3 ML VIAL SC PRN ×3 (09:11→17:29)
[2019-09-23] MEDS: Nitroglycerin 0.4 MG TAB (25 Tab Bottle) PO PRN ×2 (09:17→09:23)
[2019-09-23] MEDS: Nystatin Powder 15 GM BOT TOP SCH ×2 (12:11→20:41)
--- NOTE | 2019-09-23 17:47 | PDOC.CPN ---
- Subjective Date: 09/23/19 Time: 17:46 Interval history: Had an episode of chest pain this morning. None since. - Review of Systems General: denies: fever/chills, weight/appetite/sleep changes, night sweats, fatigue Respiratory: denies: cough, congestion, shortness of breath, exercise intolerance Cardiovascular: reports: chest pain. denies: palpitation, edema, paroxysmal nocturnal dyspnea, orthopnea Gastrointestinal: denies: nausea, vomiting, diarrhea, constipation, abd pain, GI bleeding Musculoskeletal: denies: pain, tenderness, stiffness, swelling, arthritis/ arthralgias Neurological: denies: numbness, syncope, seizure, weakness - Objective Allergies/Adverse Reactions: Allergies Allergy/AdvReac Type Severity Reaction Status Date / Time morphine Allergy Verified 09/19/19 17:42 Visit Medications: Current Medications Acetaminophen (Tylenol) 650 mg PO Q4H PRN PRN Reason: Headache/Fever/Mild Pain (1-3) Amiodarone HCl (Cordarone) 200 mg PO TID [facility] Last Admin: 09/23/19 15:42 Dose: 200 mg Amlodipine Besylate (Norvasc) 5 mg PO DAILY [facility] Last Admin: 09/23/19 09:04 Dose: 5 mg Aspirin (Ecotrin) 81 mg PO DAILY [facility] Last Admin: 09/23/19 09:03 Dose: 81 mg Atorvastatin Calcium (Lipitor) 40 mg PO HS [facility] Last Admin: 09/22/19 21:06 Dose: 40 mg Cyanocobalamin (Vitamin B-12) 1,000 mcg IM [id number] [facility] Dextrose/Water (Dextrose 50%) 25 gm SLOW IVP PRN PRN PRN Reason: Hypoglycemia Enoxaparin Sodium (Lovenox) 40 mg SC 0900 [facility] Last Admin: 09/23/19 09:06 Dose: 40 mg Escitalopram Oxalate (Lexapro) 10 mg PO DAILY [facility] Last Admin: 09/23/19 09:03 Dose: 10 mg Glucagon (Glucagon) 1 mg IM PRN PRN PRN Reason: Hypoglycemia Hydralazine HCl (Apresoline) 5 mg SLOW IVP Q15MIN PRN PRN Reason: SBP Greater Than 180 Dextrose/Water (D5w) 1,000 mls @ 0 mls/hr IV .Q0M PRN PRN Reason: Hypoglycemia Insulin Glargine 20 units/ (Miscellaneous Medication) 0.2 mls @ 0 mls/hr SC QAM [facility] Last Admin: 09/23/19 09:11 Dose: 0.2 mls Insulin Human Lispro (Humalog) 0 units SC .MILD SLIDING SCALE PRN PRN Reason: Mild Correctional Scale Last Admin: 09/23/19 17:29 Dose: 3 unit Isosorbide Dinitrate (Isordil) 10 mg PO BID [facility] Last Admin: 09/23/19 09:02 Dose: 10 mg Levothyroxine Sodium (Synthroid) 50 mcg PO 0600 [facility] Last Admin: 09/23/19 05:27 Dose: 50 mcg Losartan Potassium (Cozaar) 50 mg PO DAILY [facility] Last Admin: 09/23/19 09:03 Dose: 50 mg Metoprolol Tartrate (Lopressor) 50 mg PO BID [facility] Last Admin: 09/23/19 09:05 Dose: Not Given Nitroglycerin (Nitrostat) 0.4 mg PO Q5MIN PRN PRN Reason: Chest Pain Last Admin: 09/23/19 09:23 Dose: 0.4 mg Nitroglycerin (Nitrostat) 0.4 mg SL Q5MIN PRN PRN Reason: Chest Pain Nystatin (Mycostatin Powder) 0 gm TOP BID [facility] Last Admin: 09/23/19 12:11 Dose: 1 applic Ondansetron HCl (Zofran Odt) 4 mg PO Q6H PRN PRN Reason: Nausea/Vomiting Last Admin: 09/23/19 05:33 Dose: 4 mg Polyethylene Glycol (Miralax) 17 gm PO DAILY [facility] Last Admin: 09/23/19 09:09 Dose: 17 gm Sodium Chloride (Flush - Normal Saline) 10 ml IVF Q12HR [facility] Last Admin: 09/23/19 09:09 Dose: 10 ml Sodium Chloride (Flush - Normal Saline) 10 ml IVF PRN PRN PRN Reason: Saline Flush Vital Signs & Weight: Vital Signs Temp Pulse Resp BP Pulse Ox 09/23/19 14:51 97.7 F 68 16 160/70 H 97 09/23/19 11:53 98 F 65 16 129/66 95 09/23/19 09:01 98.2 F 58 L 12 132/61 95 Weight 195 lb 2 oz - Physical Exam General: alert & oriented x3, no apparent distress HEENT: mucus membranes moist, normocephaly Neck: supple neck, midline trachea Cardiac: regular rate and rhythm, no murmur Lungs: clear to auscultation Neuro: grossly intact Abdomen: active bowel sounds, soft, non-tender Extremities: no edema Skin: clear Musculoskeletal: no pain - Labs Result Diagrams: 09/23/19 04:38 09/23/19 04:38 Troponin/CKMB CK-MB (CK-2) 0.7 ng/mL (0-6.6) 09/21/19 04:42 Troponin I 0.059 ng/mL (< 0.028) H 09/21/19 04:42 - Telemetry Supraventricular conduction: atrial fibrillation - Assessment/Plan Assessment/Plan: 1. Multivessel CAD. 2. Atrial fibrillation PLAN: - CABG next week. - Ask to consider SCAR ligation and epicardial MAZE
[2019-09-23] MEDS ORDERED: Docusate Calcium (SURFAK) 240 MG CAP PO PRN (18:28)
[2019-09-23] MEDS: Atorvastatin Calcium 40 MG TAB PO SCH (20:37)
[2019-09-24] MEDS: Levothyroxine Sodium 50 MCG TAB PO SCH (05:35)
--- NOTE | 2019-09-24 05:56 | PDOC.FM ---
- Subjective Subjective: Pt resting well upon entry to room. Awakens and states she has not had any overnight CP, SOB, or cough. Pt does report feeling "mucus" in her throat. Pt slightly anxious about CABG. - Objective MAR Reviewed: Yes Vital Signs & Weight: Vital Signs (12 hours) Temp Pulse Resp BP Pulse Ox 09/24/19 04:00 97.9 F 80 18 124/58 L 90 L 09/23/19 20:35 98.5 F 80 18 161/72 H 95 Weight Weight 88.507 kg I&O: 09/22/19 09/23/19 09/24/19 06:59 06:59 06:59 Intake Total 2760 1340 1400 Output Total 1440 Balance 1320 1340 1400 Result Diagrams: 09/24/19 05:38 09/24/19 05:38 Phys Exam - Physical Examination Constitutional: NAD HEENT: moist MMs, sclera anicteric right sided glass eye Neck: no JVD, supple Respiratory: no wheezing, no rales, no rhonchi, clear to auscultation bilateral Cardiovascular: RRR, no significant murmur, no rub Gastrointestinal: soft, non-tender, no distention, positive bowel sounds Musculoskeletal: no edema, pulses present Neurological: non-focal, normal sensation, moves all 4 limbs Psychiatric: normal affect, A&O x 3 Skin: no rash, normal turgor, cap refill <2 seconds Dx/Plan (1) Chest pain, rule out acute myocardial infarction Code(s): R07.9 - CHEST PAIN, UNSPECIFIED Status: Acute (2) CAD (coronary artery disease) Code(s): I25.10 - ATHSCL HEART DISEASE OF [place] CORONARY ARTERY W/O ANG PCTRS Status: Chronic (3) DM2 (diabetes mellitus, type 2) Status: Chronic (4) Osteoporosis Code(s): M81.0 - AGE-RELATED OSTEOPOROSIS W/O CURRENT PATHOLOGICAL FRACTURE Status: Chronic (5) Acute kidney injury superimposed on CKD Code(s): N17.9 - ACUTE KIDNEY FAILURE, UNSPECIFIED; N18.9 - CHRONIC KIDNEY DISEASE, UNSPECIFIED Status: Acute (6) Macrocytic anemia with vitamin B12 deficiency Code(s): D51.9 - VITAMIN B12 DEFICIENCY ANEMIA, UNSPECIFIED Status: Chronic - Plan Plan: 1. Anginal Chest Pain -Continue Nitro for CP -EKG (On Presentation): NSR w/ occasional PACs - no signs of ischemia -Intermittent periods of rate-controlled A-Fib, asymptomatic -TSH: 1.27 -M.6 / Phos: 3.0 -Trops: 0.127, 0.151, 0.187, 0.126 (I) -Cardiology Consult: Heart Cath on 09/21 revealed significant blockage of LAD -CV Surgery Consult: Plan for CABG on 09/26, DC'd Plavix on 09/21 -Triglycerides(111) / Cholesterol (145) / HDL (46) / LDL (77) 2. CAD -Patient reportedly had 3 stents placed in 2014, unsure if she's ever had an [place] -Additional stent placed during 09/21 heart cath -Atorvastatin 40 mg PO daily - CABG planned for 09/26, per CV surg. - Will hold lovenox after Wednesday morning dose, per CV surg recs. Continue ASA. 3. DM, uncontrolled -Glucose: Awaiting AM lab results -HgA1C: 8.5 -Family is unsure of current medication regimen -Hypoglycemia Protocol -Lantus 20U QAM -Moderate SSI 4. Macrocytic Anemia -Folate: 14/ B12: <109 - place on B12 supplementation at D/C 5. NHUNG vs CKD -Cr: 1.0 on admission - Awaiting AM lab results -No previous labs for comparison -LR @ 120 ml/hr -Consider DC fluids 6. HTN - Dr. William added amlodipine and losartan to regimen - cont B-suri 7. Paryoxysmal A fib - Dr. William added amiodarone as her risk of a fib is high post CABG. Code: DNAR Diet:Heart Healthy / Carbohydrate Conscious Activity: Ad payton DVT PPx: SCDs Dispo: Patient currently stable on Telemetry Floor. Continue to coordinate closely with Cardiology and CV Surgery as required. Plan for CABG on 09/26, per CV Surgery recommendations. Continue to manage other comorbid conditions. Expected LOS > 48H. Addendum - Attending - Attending Attestation Date/Time: 09/24/19 5596 I personally evaluated the patient and discussed the management with Dr Bartlett. I agree with the History, Examination, Assessment and Plan documented above with any addition or exceptions noted below. The patient is doing well. She is planning for CABG on Wednesday. We are waiting for her to be off plavix for 5 days.
[2019-09-24 06:20] LABS: #Basophils 0.1 thou/uL (0.0-0.2); #Eosinphils 0.2 thou/uL (0.0-0.7); #Lymphocytes 1.6 thou/uL (1.20-3.40); #Monocytes 0.6 thou/uL (0.11-0.59); #Neutrophils 4.2 thou/uL (1.40-6.50); %Basophils 1.1 % (0.0-1.0); %Eosinophils 2.9 % (0.0-10.0); %Lymphocytes 24.1 % (21.0-51.0); %Monocytes 9.6 % (0.0-10.0); %Neutrophils 62.4 % (42.0-75.0); Hemoglobin 10.6 g/dL (12.0-16.0); Mean Corpuscular HGB CONC 33.7 g/dL (32.0-36.0); Mean Corpuscular Hemoglobin 35.8 pg (27.0-31.0); Mean Platelet Volume 7.7 fL (7.4-10.4); Platelet Count 259 thou/uL (130-400); Red Blood Cell (RBC) Count 2.96 mill/uL (4.20-5.40); White Blood Cell (WBC) Count 6.7 thou/uL (4.8-10.8)
[2019-09-24 06:51] LABS: ALT (SGPT) 8 U/L (8-55); AST (SGOT) 11 U/L (5-34); Albumin 3.6 g/dL (3.4-4.8); Alkaline Phosphatase 116 U/L (40-110); Anion Gap 11 mmol/L (10-20); BUN (Urea Nitrogen) 18 mg/dL (9.8-20.1); Bilirubin, Total 0.9 mg/dL (0.2-1.2); Calc. Creatinine Clearance 78 mL/min (70-130); Calcium 9.6 mg/dL (7.8-10.44); Carbon Dioxide 27 mmol/L (23-31); Chloride 106 mmol/L (98-107); Estimated GFR-MDRD 65; Globulin 2.3 g/dL (2.4-3.5); Glucose 198 mg/dL (83-110); Protein, Total 5.9 g/dL (6.0-8.3); Sodium 140 mmol/L (136-145)
[2019-09-24] MEDS: Isosorbide Dinitrate 5 MG TAB PO SCH ×2 (09:57→20:39)
[2019-09-24] MEDS: Metoprolol Tartrate 50 MG TAB PO SCH ×2 (09:57→20:39)
[2019-09-24] MEDS: Aspirin 81 mg Enteric Coated Tablet PO SCH (09:58)
[2019-09-24] MEDS: Escitalopram Oxalate 10 mg Tablet PO SCH (09:58)
[2019-09-24] MEDS: Amlodipine 5 MG TAB PO SCH (09:58)
[2019-09-24] MEDS: Losartan 25 MG TAB PO SCH (09:58)
[2019-09-24] MEDS: Amiodarone 200 MG TAB PO SCH ×3 (09:58→20:39)
[2019-09-24] MEDS: HumaLOG 300 UNITS/3 ML VIAL SC PRN ×2 (09:59→18:25)
[2019-09-24] MEDS: Insulin Glargine 30 UNITS in Pre-Filled Syringe 1 EACH SC SCH (09:59)
[2019-09-24] MEDS: Enoxaparin Sodium 40 MG/0.4 ML SYRINGE SC SCH (10:00)
[2019-09-24] MEDS: Polyethylene Glycol 3350 17 GM Packet PO SCH (10:07)
[2019-09-24] MEDS: Nystatin Powder 15 GM BOT TOP SCH ×2 (10:16→20:42)
[2019-09-24] MEDS ORDERED: Enoxaparin Sodium 40 MG/0.4 ML SYRINGE SC SCH (11:45)
--- NOTE | 2019-09-24 18:26 | PDOC.CPN ---
- Subjective Date: 09/24/19 Time: 18:25 Interval history: No new issues. No more chest pains. Converted to sinus this morning. - Review of Systems General: denies: fever/chills, weight/appetite/sleep changes, night sweats, fatigue Respiratory: denies: cough, congestion, shortness of breath, exercise intolerance Cardiovascular: denies: chest pain, palpitation, edema, paroxysmal nocturnal dyspnea, orthopnea Gastrointestinal: denies: nausea, vomiting, diarrhea, constipation, abd pain, GI bleeding Musculoskeletal: denies: pain, tenderness, stiffness, swelling, arthritis/ arthralgias Neurological: denies: numbness, syncope, seizure, weakness - Objective Allergies/Adverse Reactions: Allergies Allergy/AdvReac Type Severity Reaction Status Date / Time morphine Allergy Verified 09/19/19 17:42 Visit Medications: Current Medications Acetaminophen (Tylenol) 650 mg PO Q4H PRN PRN Reason: Headache/Fever/Mild Pain (1-3) Amiodarone HCl (Cordarone) 200 mg PO TID [facility] Last Admin: 09/24/19 15:49 Dose: 200 mg Amlodipine Besylate (Norvasc) 5 mg PO DAILY [facility] Last Admin: 09/24/19 09:58 Dose: 5 mg Aspirin (Ecotrin) 81 mg PO DAILY [facility] Last Admin: 09/24/19 09:58 Dose: 81 mg Atorvastatin Calcium (Lipitor) 40 mg PO HS [facility] Last Admin: 09/23/19 20:37 Dose: 40 mg Cyanocobalamin (Vitamin B-12) 1,000 mcg IM [id number] [facility] Dextrose/Water (Dextrose 50%) 50 ml SLOW IVP PRN PRN PRN Reason: HYPOGLYCEMIA Docusate Calcium (Surfak) 240 mg PO DAILYPRN PRN PRN Reason: Constipation Last Admin: 09/24/19 09:58 Dose: 240 mg Escitalopram Oxalate (Lexapro) 10 mg PO DAILY [facility] Last Admin: 09/24/19 09:58 Dose: 10 mg Glucagon (Glucagon) 1 mg IM PRN PRN PRN Reason: Hypoglycemia Hydralazine HCl (Apresoline) 5 mg SLOW IVP Q15MIN PRN PRN Reason: SBP Greater Than 180 Dextrose/Water (D5w) 1,000 mls @ 0 mls/hr IV .Q0M PRN PRN Reason: Hypoglycemia Insulin Glargine 30 units/ (Miscellaneous Medication) 0.3 mls @ 0 mls/hr SC QAM [facility] Last Admin: 09/24/19 09:59 Dose: 0.3 mls Insulin Human Lispro (Humalog) 0 units SC .MILD SLIDING SCALE PRN PRN Reason: Mild Correctional Scale Last Admin: 09/24/19 09:59 Dose: 3 unit Isosorbide Dinitrate (Isordil) 10 mg PO BID [facility] Last Admin: 09/24/19 09:57 Dose: 10 mg Levothyroxine Sodium (Synthroid) 50 mcg PO 0600 [facility] Last Admin: 09/24/19 05:35 Dose: 50 mcg Losartan Potassium (Cozaar) 50 mg PO DAILY [facility] Last Admin: 09/24/19 09:58 Dose: 50 mg Metoprolol Tartrate (Lopressor) 50 mg PO BID [facility] Last Admin: 09/24/19 09:57 Dose: 50 mg Nitroglycerin (Nitrostat) 0.4 mg PO Q5MIN PRN PRN Reason: Chest Pain Last Admin: 09/23/19 09:23 Dose: 0.4 mg Nitroglycerin (Nitrostat) 0.4 mg SL Q5MIN PRN PRN Reason: Chest Pain Nystatin (Mycostatin Powder) 0 gm TOP BID [facility] Last Admin: 09/24/19 10:16 Dose: 1 applic Ondansetron HCl (Zofran Odt) 4 mg PO Q6H PRN PRN Reason: Nausea/Vomiting Last Admin: 09/23/19 05:33 Dose: 4 mg Polyethylene Glycol (Miralax) 17 gm PO DAILY [facility] Last Admin: 09/24/19 10:07 Dose: 17 gm Sodium Chloride (Flush - Normal Saline) 10 ml IVF Q12HR [facility] Last Admin: 09/24/19 10:07 Dose: 10 ml Sodium Chloride (Flush - Normal Saline) 10 ml IVF PRN PRN PRN Reason: Saline Flush Vital Signs & Weight: Vital Signs Temp Pulse Resp BP Pulse Ox 09/24/19 16:00 98.4 F 86 19 137/76 99 09/24/19 12:00 98.9 F 89 18 133/64 98 09/24/19 07:43 98.6 F 81 12 132/62 95 Weight 194 lb 1 oz - Physical Exam General: alert & oriented x3 HEENT: mucus membranes moist Neck: supple neck Cardiac: regular rate and rhythm Lungs: clear to auscultation Neuro: grossly intact Abdomen: active bowel sounds, soft, non-tender Extremities: no edema Skin: clear Musculoskeletal: no pain - Labs Result Diagrams: 09/24/19 05:38 09/24/19 05:38 Troponin/CKMB CK-MB (CK-2) 0.7 ng/mL (0-6.6) 09/21/19 04:42 Troponin I 0.059 ng/mL (< 0.028) H 09/21/19 04:42 - Telemetry Sinus rhythms and dysrhythmias: sinus rhythm - Assessment/Plan Assessment/Plan: 1. Multivessel CAD. 2. Atrial fibrillation PLAN: - CABG next week. - Ask to consider SCAR ligation and epicardial MAZE given new onset Afib.
[2019-09-24] MEDS: Senokot S 8.6-50 MG TAB PO SCH (20:38)
[2019-09-24] MEDS: Atorvastatin Calcium 40 MG TAB PO SCH (20:39)
[2019-09-25] MEDS: Levothyroxine Sodium 50 MCG TAB PO SCH (06:00)
--- NOTE | 2019-09-25 07:15 | PDOC.FM ---
- Subjective Subjective: Mrs. Duong was resting comfortably in her hospital bed after using the restroom. She denied any acute overnight events but did express some moderate anxiety due to her upcoming CABG. - Objective Vital Signs & Weight: Vital Signs (12 hours) Temp Pulse Resp BP Pulse Ox 09/25/19 04:00 98.2 F 72 14 149/74 H 96 09/25/19 00:00 77 18 09/24/19 20:00 98.2 F 76 20 112/67 98 Weight Weight 90.764 kg I&O: 09/24/19 09/25/19 09/26/19 06:59 06:59 06:59 Intake Total 1520 1800 Balance 1520 1800 Result Diagrams: 09/24/19 05:38 09/24/19 05:38 Phys Exam - Physical Examination Constitutional: NAD HEENT: PERRLA, moist MMs, sclera anicteric, oral pharynx no lesions Right ocular prosthesis Neck: supple, full ROM Respiratory: no wheezing, no rales, no rhonchi, clear to auscultation bilateral Cardiovascular: RRR, no significant murmur, no rub Gastrointestinal: soft, non-tender, no distention Musculoskeletal: no edema, pulses present +2 at Radial Arteries Neurological: non-focal, moves all 4 limbs Psychiatric: normal affect, A&O x 3 Skin: no rash Dx/Plan - Plan Plan: 1. Anginal Chest Pain -Continue Nitro for CP -EKG (On Presentation): NSR w/ occasional PACs - no signs of ischemia -Intermittent periods of asymptomatic A-Fib, rate controlled -TSH: 1.27 -M.6 / Phos: 3.0 -Trops: 0.127, 0.151, 0.187, 0.126 (I) -Cardiology Consult: Heart Cath on 09/21 revealed significant blockage of LAD -CV Surgery Consult: Plan for CABG on 09/26, DC'd Plavix on 09/21, DC'd Lovenox on 09/25 - will confirm exact date/time this AM -Triglycerides(111) / Cholesterol (145) / HDL (46) / LDL (77) 2. CAD -Patient reportedly had 3 stents placed in 2014, unsure if she's ever had an [place] -Additional stent placed during 09/21 heart cath -Atorvastatin 40 mg PO daily -CABG planned for 09/26, per CV Surgery -Lovenox after Wednesday morning dose, per CV Surgery recs - continue ASA. 3. DM2, poorly controlled -Glucose: 173 -HgA1C: 8.5 -Family is unsure of current medication regimen -Hypoglycemia Protocol -Lantus 30U QAM -Moderate SSI -Calculate daily Insulin requirements and adjust Basal Insulin as needed 4. Macrocytic Anemia -Folate: 14/ B12: <109 -s/p B12 supplementation -Ensure continued B12 supplementation prior to DC 5. NHUNG vs CKD -Cr: 1.0 on admission > 0.85 -No previous labs for comparison -LR @ 120 ml/hr -Consider DC fluids 6. HTN - Dr. William added amlodipine and losartan to regimen - cont B-suri 7. Paryoxysmal A fib - Dr. William added amiodarone as her risk of a fib is high post CABG. Code: DNAR Diet:Heart Healthy / Carbohydrate Conscious Activity: Ad payton DVT PPx: SCDs Dispo: Patient currently stable on Telemetry Floor. Continue to coordinate closely with Cardiology and CV Surgery as required. Plan for CABG on 09/26, per CV Surgery recommendations - will attempt to confirm date/time this AM. Continue to manage other comorbid conditions. Expected LOS > 48H. Addendum - Attending - Attending Attestation Date/Time: 09/25/19 0469 I personally evaluated the patient and discussed the management with Dr. Metz. I agree with the History, Examination, Assessment and Plan documented above with any addition or exceptions noted below. Pt's metoprolol is being held. CABG is likely scheduled for tomorrow.
[2019-09-25] MEDS: Metoprolol Tartrate 50 MG TAB PO SCH ×2 (08:48→20:23)
[2019-09-25] MEDS: Insulin Glargine 30 UNITS in Pre-Filled Syringe 1 EACH SC SCH (08:51)
[2019-09-25] MEDS: Aspirin 81 mg Enteric Coated Tablet PO SCH (08:52)
[2019-09-25] MEDS: Escitalopram Oxalate 10 mg Tablet PO SCH (08:52)
[2019-09-25] MEDS: Amlodipine 5 MG TAB PO SCH (08:52)
[2019-09-25] MEDS: Isosorbide Dinitrate 5 MG TAB PO SCH ×2 (08:53→20:22)
[2019-09-25] MEDS: Losartan 25 MG TAB PO SCH (08:53)
[2019-09-25] MEDS: HumaLOG 300 UNITS/3 ML VIAL SC PRN ×2 (08:54→11:24)
[2019-09-25] MEDS: Senokot S 8.6-50 MG TAB PO SCH ×2 (08:54→20:22)
[2019-09-25] MEDS: Amiodarone 200 MG TAB PO SCH ×3 (08:54→20:22)
[2019-09-25] MEDS: Polyethylene Glycol 3350 17 GM Packet PO SCH (08:54)
[2019-09-25] MEDS: Nystatin Powder 15 GM BOT TOP SCH ×2 (09:06→20:28)
--- NOTE | 2019-09-25 09:56 | PRG ---
DATE OF SERVICE: 09/25/2019 SUBJECTIVE: Ms. Duong is feeling well. No chest pain or pressure. The patient is having some pauses intermittently in the heart rhythm just over 2 seconds. OBJECTIVE: VITAL SIGNS: Blood pressure 158/74 and pulse 68, but she is having pauses. LUNGS: Clear. CARDIAC: Normal S1 and normal S2. ASSESSMENT: 1. Three-vessel disease. 2. Paroxysmal atrial fibrillation. PLAN: 1. We will hold metoprolol today. 2. Bypass surgery later this week. Job ID: [id number]
[2019-09-25] MEDS ORDERED: Communication Order-Pharmacy FS SCH (13:25)
[2019-09-25] MEDS ORDERED: Bisacodyl 10 MG SUPP PR PRN (15:08)
[2019-09-25] MEDS: Atorvastatin Calcium 40 MG TAB PO SCH (20:23)
[2019-09-26] MEDS ORDERED: CEFAZOLIN 2 GM in Premix Bag 1 BAG IVPB SCH (01:30)
[2019-09-26] MEDS: Levothyroxine Sodium 50 MCG TAB PO SCH (06:04)
[2019-09-26] MEDS: Metoprolol Tartrate 50 MG TAB PO SCH (06:05)
[2019-09-26] MEDS: Losartan 25 MG TAB PO SCH (06:09)
[2019-09-26] MEDS ORDERED: Albumin 5% 500 ML ONE (06:31)
[2019-09-26] MEDS ORDERED: Midazolam HCl 2 mg/2 ml Vial ONE (06:33)
[2019-09-26] MEDS ORDERED: Dexmedetomidine 200 MCG/2 ML VIAL ONE (06:33)
[2019-09-26] MEDS ORDERED: Midazolam HCl 5 mg/5 ml Vial ONE (06:33)
[2019-09-26] MEDS ORDERED: Vecuronium 10 MG VIAL ONE ×3 (06:33→10:16)
[2019-09-26] MEDS ORDERED: Fentanyl 100 MCG/2 ML VIAL ONE (06:33)
[2019-09-26] MEDS ORDERED: Heparin 10,000 UNITS/1 ML VIAL 30,000 UNITS in Sodium Chloride 0.9% 1,000 ML FS SCH (06:45)
--- NOTE | 2019-09-26 06:50 | PDOC.FM ---
- Subjective Subjective: Mrs. Duong was sleeping comfortably in her hospital bed at the time of her evaluation. She had just immediately returned from her CABG, and was unresponsive at the time of evaluation. There were no adverse events reported per nursing staff. - Objective Vital Signs & Weight: Vital Signs (12 hours) Temp Pulse Resp BP Pulse Ox 09/26/19 04:00 98.7 F 73 18 159/71 H 98 09/26/19 00:00 77 16 09/25/19 20:00 97.1 F L 85 20 152/63 H 97 Weight Weight 89.857 kg I&O: 09/24/19 09/25/19 09/26/19 06:59 06:59 06:59 Intake Total 1520 1800 1550 Balance 1520 1800 1550 Result Diagrams: 10/04/19 04:13 10/04/19 04:13 Phys Exam - Physical Examination Constitutional: NAD HEENT: moist MMs, oral pharynx no lesions Neck: supple Respiratory: no wheezing, no rales, no rhonchi, clear to auscultation bilateral Cardiovascular: RRR, no significant murmur Mild friction rub Gastrointestinal: soft, non-tender, no distention Musculoskeletal: no edema, pulses present +2 pulses at Dorsalis Pedis Arteries Neurological: non-focal Skin: no rash Dx/Plan - Plan Plan: 1. Anginal Chest Pain, 2/2 CAD -Continue Nitro for CP -EKG (On Presentation): NSR w/ occasional PACs - no signs of ischemia -Intermittent periods of asymptomatic A-Fib, rate controlled -TSH: 1.27 -M.6 / Phos: 3.0 -Trops: 0.127, 0.151, 0.187, 0.126 (I) -Triglycerides(111) / Cholesterol (145) / HDL (46) / LDL (77) -Cardiology Consult: Heart Cath on 09/21 revealed significant blockage of LAD -CV Surgery Consult: s/p CABG on 09/26, DC'd Plavix on 09/21, DC'd Lovenox on 2. CAD -Patient reportedly had 3 stents placed in 2014, unsure if she's ever had an [place] -Additional stent placed during 09/21 heart cath -Atorvastatin 40 mg PO daily -CABG planned for 09/26, per CV Surgery -Lovenox after Wednesday morning dose, per CV Surgery recs - continue ASA. 3. DM2, poorly controlled -Glucose: 240 on 09/26 -HgA1C: 8.5 -Family is unsure of current medication regimen -Hypoglycemia Protocol -Lantus 30U QAM -Aggressive SSI -Calculate daily Insulin requirements and adjust Basal Insulin as needed 4. Macrocytic Anemia -Folate: 14 / B12: <109 -s/p B12 supplementation -Ensure continued B12 supplementation prior to DC 5. NHUNG vs CKD -Cr: 1.0 on admission > 0.85 -No previous labs for comparison -LR @ 120 ml/hr -Consider DC fluids 6. HTN -159/71 on 09/26 -Dr. William (Cardiology) added Amlodipine 5 mg PO daily and Losartan 50 mg PO daily to regimen -Continue Metoprolol 50 mg PO BID 7. Paryoxysmal A-Fib -Dr. William added Amiodarone as her risk of A-Fib is high s/p CABG Code: DNAR Diet:Heart Healthy / Carbohydrate Conscious Activity: Ad payton DVT PPx: SCDs Dispo: Patient currently stable on ICU. Continue to coordinate closely with Cardiology and CV Surgery as required. Plan for recovery from CABG. Continue to manage other comorbid conditions, specifically with respect to DM2. Expected LOS > 48H. Addendum - Attending - Attending Attestation Date/Time: 10/09/192056 I personally evaluated the patient and discussed the management with Dr. Duong on 09/26/19. I agree with the History, Examination, Assessment and Plan documented above with any addition or exceptions noted below. post-cath LAD CAD recommend CABG. Cath insertion site stable with intact distal pulses.
[2019-09-26] MEDS ORDERED: Insulin Regular 300 UNITS/3 ML VIAL ONE (07:32)
[2019-09-26] MEDS ORDERED: Heparin 30,000 units/30 ml VIAL ONE (10:16)
[2019-09-26] MEDS ORDERED: Heparin 5,000 UNITS/ML VIAL ONE (10:16)
[2019-09-26] MEDS ORDERED: Potassium Chloride 60 MEQ/30 ML VIAL ONE (10:16)
[2019-09-26] MEDS ORDERED: Calcium Chloride 1 GM/10 ML Abboject SYRINGE ONE (10:16)
[2019-09-26] MEDS ORDERED: Nitroglycerin 50 MG/250 ML BOT ONE (10:16)
[2019-09-26] MEDS ORDERED: Lidocaine 1% PF 5 ML VIAL ONE (10:16)
[2019-09-26] MEDS ORDERED: Thrombin 5000 UNITS/5 ML VIAL ONE (10:16)
[2019-09-26] MEDS ORDERED: Aminocaproic Acid 5 GM/20 ML VIAL ONE (10:16)
[2019-09-26] MEDS ORDERED: DOPamine 400 MG/10 ML VIAL ONE (10:16)
[2019-09-26] MEDS ORDERED: Ketorolac Tromethamine 30 MG/ML VIAL ONE (10:16)
[2019-09-26] MEDS ORDERED: Protamine Sulfate 250 MG/25 ML VIAL ONE (10:16)
[2019-09-26] MEDS ORDERED: Dexamethasone 20 MG/5 ML VIAL ONE (10:16)
[2019-09-26] MEDS ORDERED: Glycopyrrolate 0.2 MG/ML 5 ML SYRINGE ONE (10:16)
[2019-09-26] MEDS ORDERED: Sodium Bicarb 50 MEQ/50 ML Abboject 8.4% SYRINGE ONE (10:16)
[2019-09-26] MEDS ORDERED: ePHEDrine/0.9% NaCl/PF SYRINGE 50 mg/10 ml ONE (10:16)
[2019-09-26] MEDS ORDERED: Lidocaine 2% PF 100 mg/5 ml Syringe ONE (10:16)
[2019-09-26] MEDS ORDERED: Magnesium Sulfate 1 GM/2 ML VIAL ONE (10:16)
[2019-09-26] MEDS ORDERED: Cardioplegic Soln 1,000 ML BAG ONE (10:16)
[2019-09-26] MEDS ORDERED: PHENYLEPHRINE-NS 100 MCG/ML 10 ML SYRINGE ONE (10:16)
[2019-09-26] MEDS ORDERED: Papaverine 60 MG/2 ML VIAL ONE (10:16)
[2019-09-26] MEDS ORDERED: Ondansetron PF 4 MG/2 ML Vial ONE (10:16)
[2019-09-26] MEDS ORDERED: Bisacodyl 5 MG TAB PO PRN (11:39)
[2019-09-26] MEDS ORDERED: Acetaminophen 325 MG TAB PO PRN (11:39)
[2019-09-26] MEDS ORDERED: Fentanyl 100 MCG/2 ML VIAL SLOW IVP PRN (11:39)
[2019-09-26] MEDS ORDERED: Hetastarch 6% 500 ML 500 ML IVPB PRN (11:39)
[2019-09-26] MEDS ORDERED: traMADol HCl 50 MG TAB PO PRN (11:39)
[2019-09-26] MEDS ORDERED: niCARdipine 25 MG in Sodium Chloride 0.9% 250 ML 250 ML IVPB PRN (11:39)
[2019-09-26] MEDS ORDERED: DOPamine 400 MG/D5W 250 ML 250 ML IVPB PRN (11:39)
[2019-09-26] MEDS ORDERED: Promethazine HCl 25 MG/ML VIAL IM PRN (11:39)
[2019-09-26] MEDS ORDERED: Mag-Al 1200 mg/1200 mg/30 ML UDCUP PO PRN (11:39)
[2019-09-26] MEDS ORDERED: Morphine 2 MG/ML SYRINGE SLOW IVP PRN (11:39)
[2019-09-26] MEDS ORDERED: Bisacodyl 10 MG SUPP PR PRN (11:39)
[2019-09-26] MEDS ORDERED: hydrALAZINE 20 MG/ML VIAL SLOW IVP PRN (11:39)
[2019-09-26] MEDS ORDERED: Ondansetron PF 4 MG/2 ML Vial IVP PRN (11:39)
[2019-09-26] MEDS ORDERED: Nitroglycerin 50 MG/250 ML BOT 250 ML IVPB PRN (11:39)
[2019-09-26] MEDS ORDERED: Guaifenesin DM 100-10/5 ML UDCUP PO PRN (11:39)
[2019-09-26] MEDS ORDERED: Post-Op Insulin Drip Protocol IVPB ONE (11:39)
[2019-09-26] MEDS ORDERED: Norepinephrine 8 MG/0.9% NS 250 ML IVPB PRN (11:39)
[2019-09-26] MEDS ORDERED: HYDROcodone/Acetaminophen 5/325 mg Tablet PO PRN (11:39)
[2019-09-26] MEDS ORDERED: Magnesium 2 GM/50 ML 2 GM in Premix Bag 1 BAG IVPB SCH (11:45)
[2019-09-26] MEDS ORDERED: HUMULIN R 100 UNITS in Sodium Chloride 0.9% 100 ML IVPB SCH (11:51)
[2019-09-26] MEDS ORDERED: Dextrose 50% Abboject 50 ML SYRINGE SLOW IVP PRN (11:51)
[2019-09-26] MEDS ORDERED: Dextrose 5% in Water 1,000 ML IV PRN (11:51)
--- NOTE | 2019-09-26 12:17 | RAD ---
Portable frontal chest radiograph: 09/26/2019 COMPARISON: 09/19/2019 HISTORY: Evaluate chest following open heart surgery FINDINGS: There is a right subclavian vascular catheter with distal tip overlying the region of the r ight atrium. Midline sternotomy wires are present. There are postsurgical clips in the right upper quadrant. Postsurgical drains overlie the right mid lung, mediastinal silhouette, and left base. Midl ine sternotomy wires are present. There is pulmonary vascular congestion and shallow inspiration with no focal consolidation or alveola r edema. Supine imaging limits assessment for pneumothorax and pleural fluid. IMPRESSION: Postoperative changes as described above.
[2019-09-26 12:19] LABS: INR-International Normal Ratio 1.3; PTT 34.8 SEC (22.9-36.1); Prothrombin Time 16.3 SEC (12.0-14.7)
[2019-09-26 12:27] LABS: Anion Gap 8 mmol/L (10-20); BUN (Urea Nitrogen) 19 mg/dL (9.8-20.1); Calc. Creatinine Clearance 85 mL/min (70-130); Calcium 9.4 mg/dL (7.8-10.44); Carbon Dioxide 28 mmol/L (23-31); Chloride 110 mmol/L (98-107); Estimated GFR-MDRD 70; Glucose 175 mg/dL (83-110); Potassium 3.6 mmol/L (3.5-5.1); Sodium 142 mmol/L (136-145)
[2019-09-26 12:44] LABS: Band 21 % (5-11); Hemoglobin 9.8 g/dL (12.0-16.0); Lymphocytes 10 % (21-51); MDiff Complete? YES; Mean Corpuscular HGB CONC 34.5 g/dL (32.0-36.0); Mean Corpuscular Hemoglobin 37.1 pg (27.0-31.0); Mean Platelet Volume 7.9 fL (7.4-10.4); Metamyelocyte 2 % (0-0); Monocytes 3 % (0-10); Neutrophil 64 % (42-75); Platelet Count 247 thou/uL (130-400); Platelet Morphology Comment Appears Adequate; RBC Distribution Width 13.7 % (11.5-14.5); Red Blood Cell (RBC) Count 2.63 mill/uL (4.20-5.40); White Blood Cell (WBC) Count 22.6 thou/uL (4.8-10.8)
[2019-09-26] MEDS: Lactated Ringer's 1,000 ML IV SCH (12:50)
[2019-09-26] MEDS: CEFAZOLIN 2 GM in Premix Bag 1 BAG IVPB SCH ×2 (13:34→22:51)
[2019-09-26] MEDS: Potassium Chloride 20 MEQ/100 ML PREMIX BAG IVPB PRN ×2 (13:35→18:29)
--- NOTE | 2019-09-26 14:13 | OP ---
DATE OF PROCEDURE: 09/26/2019 PREOPERATIVE DIAGNOSES: 1. Coronary artery disease. 2. History of atrial fibrillation. 3. Sick sinus syndrome. EXTRACTION MACHINE OPERATOR: Maximo Yanes MD. PROCEDURES PERFORMED: 1. Coronary artery bypass graft x3; good quality UNDER[place]OD to a 1.5 mm left anterior descending with posterior plaquing, saphenous vein somewhat large to a 2 mm obtuse marginal, extending on to the more distal branch, and saphenous vein graft to a severely diseased 2 mm right coronary artery. 2. Ligation of left atrial appendage. DESCRIPTION OF PROCEDURE: After adequate anesthesia had been obtained, the patient was prepped and draped. I performed a median sternotomy while Dr. Yanes began an endovascular vein harvest of the left leg; however, converted this to open. After entering the sternum, the right pleura had been entered and this was closed. Left internal mammary artery was harvested, entering the left pleura in one small spot. Heparinization was given. The mammary divided distally and passed posterior to the thymus gland. Aorta and right atrium were cannulated and cardiopulmonary bypass was begun. Vessels were inspected for grafting. The aorta crossclamped and a liter of cold blood cardioplegia given through the aortic root. Following this, the left atrial appendage was oversewn with a double layer of Prolene suture. Following completion of this, attention was turned to the distal anastomosis, which were completed. Cross-clamp was removed and the partial occluding clamp placed and 2 vein anastomoses performed on the aortic root and marked with rings. Following this, the distal right coronary artery anastomosis required a suture on the toe and then the patient was weaned from cardiopulmonary bypass, but did require temporary atrial and ventricular pacing wires. Mediastinal and bilateral pleural drains were placed. The patient had a previous midline abdominal surgery and had a large fascial defect. Care was taken when placing the tubes to avoid injury to any bowel. The sternum was reapproximated with #7 interrupted wire using vancomycin paste on the sternal edges, platelet-rich blood and platelet-poor plasma. Subcutaneous tissue and skin were closed in layers and the patient is to be taken to the ICU in guarded condition. Job ID: [id number]
[2019-09-26] MEDS: Fentanyl 100 MCG/2 ML VIAL SLOW IVP PRN ×2 (14:44→20:16)
[2019-09-26 17:54] LABS: Hemoglobin 8.9 g/dL (12.0-16.0)
[2019-09-26] MEDS: Ondansetron PF 4 MG/2 ML Vial IVP PRN (18:47)
[2019-09-26] MEDS: Famotidine/PF 20 mg/2ml Vial SLOW IVP SCH (20:16)
[2019-09-26] MEDS ORDERED: Amiodarone 150 MG, Admixture Fee 1 EACH in Dextrose 5% in Water 100 ML IVPB SCH (23:45)
[2019-09-27] MEDS: Fentanyl 100 MCG/2 ML VIAL SLOW IVP PRN
[2019-09-27] MEDS: Amiodarone 450 MG, Admixture Fee 1 EACH in Dextrose 5% in Water 250 ML IVPB SCH ×2 (00:24→09:50)
[2019-09-27] MEDS: Lactated Ringer's 1,000 ML IV SCH (03:21)
[2019-09-27] MEDS: Ondansetron PF 4 MG/2 ML Vial IVP PRN ×3 (03:22→11:34)
[2019-09-27] MEDS: HYDROcodone/Acetaminophen 5/325 mg Tablet PO PRN ×3 (03:22→17:19)
[2019-09-27 04:36] LABS: #Lymphocytes 0.9 thou/uL (1.20-3.40); #Neutrophils 11.3 thou/uL (1.40-6.50); %Basophils 0.1 % (0.0-1.0); %Eosinophils 0.1 % (0.0-10.0); %Monocytes 7.5 % (0.0-10.0); %Neutrophils 85.3 % (42.0-75.0); Hemoglobin 8.3 g/dL (12.0-16.0); Mean Corpuscular HGB CONC 33.9 g/dL (32.0-36.0); Mean Corpuscular Hemoglobin 36.7 pg (27.0-31.0); Mean Platelet Volume 8.6 fL (7.4-10.4); Platelet Count 199 thou/uL (130-400); RBC Distribution Width 13.9 % (11.5-14.5); Red Blood Cell (RBC) Count 2.25 mill/uL (4.20-5.40); White Blood Cell (WBC) Count 13.2 thou/uL (4.8-10.8)
[2019-09-27 04:51] LABS: Anion Gap 11 mmol/L (10-20); BUN (Urea Nitrogen) 22 mg/dL (9.8-20.1); Calc. Creatinine Clearance 86 mL/min (70-130); Calcium 9.2 mg/dL (7.8-10.44); Carbon Dioxide 22 mmol/L (23-31); Chloride 110 mmol/L (98-107); Estimated GFR-MDRD 71; Glucose 160 mg/dL (83-110); Potassium 3.8 mmol/L (3.5-5.1); Sodium 139 mmol/L (136-145)
[2019-09-27] MEDS: CEFAZOLIN 2 GM in Premix Bag 1 BAG IVPB SCH (05:10)
[2019-09-27] MEDS: Potassium Chloride 20 MEQ/100 ML PREMIX BAG IVPB PRN (05:10)
--- NOTE | 2019-09-27 05:32 | PDOC.FM ---
- Subjective Subjective: Mrs. Duong was sleeping in her hospital bed at the time of evaluation, but was easily arousable. She denied any acute overnight events, but did complain of persistent nausea since her CABG yesterday. Per nursing staff, she had an episode of A-Fib for ~45 minutes, during which Cardiology was consulted and an Amiodarone gtt was started. She remained rate-controlled for much of this time, and was in NSR at the time of evaluation. Chest Tube Output: 350 ml Rodgers Catheter: 1045 ml - Objective Vital Signs & Weight: Vital Signs (12 hours) Temp Pulse Ox 09/27/19 04:00 98.6 F 09/27/19 00:00 98.1 F 09/26/19 20:00 97.6 F 09/26/19 19:27 97 Weight Weight 89.857 kg Most Recent Monitor Data Heart Rate from ECG 87 NIBP 133/86 NIBP BP-Mean 101 Respiration from ECG 17 SpO2 94 I&O: 09/25/19 09/26/19 09/27/19 06:59 06:59 06:59 Intake Total 1800 1550 1393.2 Output Total 1275 Balance 1800 1550 118.2 Result Diagrams: 09/27/19 03:50 09/27/19 03:50 Phys Exam - Physical Examination Constitutional: NAD HEENT: PERRLA, moist MMs, sclera anicteric, oral pharynx no lesions Right ocular prosthesis Neck: no JVD, supple, full ROM Respiratory: no wheezing, no rales, no rhonchi, clear to auscultation bilateral Cardiovascular: RRR, no significant murmur Mild friction rub, decreased from previous exam Chest tube in place w/o erythema, induration or drainage Gastrointestinal: soft, non-tender, no distention Musculoskeletal: no edema, pulses present Compression stockings in place Neurological: non-focal, moves all 4 limbs Psychiatric: normal affect Skin: no rash Dx/Plan - Plan Plan: 1. Anginal Chest Pain, 2/2 CAD -EKG (On Presentation): NSR w/ occasional PACs - no signs of ischemia -Intermittent periods of asymptomatic A-Fib, rate controlled -Trops: 0.127, 0.151, 0.187, 0.126 (I) -TSH: 1.27 / M.6 / Phos: 3.0 -Triglycerides(111) / Cholesterol (145) / HDL (46) / LDL (77) -Cardiology: Consulted, performed Heart Cath on 09/[address] a stent, discovered significant blockage of LAD -CV Surgery: Consulted, performed 3-vessel CABG on 09/26 without significant intraoperative or post-operative complications 2. CAD -Patient reportedly had 3 stents placed in 2014, unsure if she's ever had an [place] -Additional stent placed during 09/21 heart cath -Atorvastatin 40 mg PO daily -See #1 3. DM2, poorly controlled -Glucose: 146 on 09/27 -Currently on insulin drip - 58U over past 17H -HgA1C: 8.5 -Hypoglycemia Protocol -Calculate daily Insulin requirements and adjust Basal Insulin as needed 4. Macrocytic Anemia -Folate: 14 / B12: <109 -s/p B12 supplementation -Ensure continued B12 supplementation prior to DC 5. NHUNG vs CKD -Cr: 1.0 on admission > 0.0.79 -No previous labs for comparison -LR @ 75 ml/hr 6. HTN -BP:133/86 on 09/27 -Currently on Amiodarone gtt in ICU 7. Paryoxysmal A-Fib -Dr. William added Amiodarone as her risk of A-Fib is high s/p CABG Code: DNAR Diet: Heart Healthy / Carbohydrate Conscious Activity: Ad payton DVT PPx: SCDs Dispo: Patient currently stable in ICU. Continue to coordinate closely with Cardiology and CV Surgery as patient recovers from CABG. Continue to manage other comorbid conditions, specifically with respect to DM2. Expected LOS > 48H. Addendum - Attending - Attending Attestation Date/Time: 09/27/19 4944 I personally evaluated the patient and discussed the management with Dr. Metz. I agree with the History, Examination, Assessment and Plan documented above with any addition or exceptions noted below. Pt on amiodarone drip after going into a.fib. She is very nauseated this morning. Increasing zofran to 8 mg. She also has phenergan available. Pt can transition off insulin drip per CV surg. Will restart basal insulin at 20 units and continue with sliding scale as she is not currently eating due to the nausea and we will continue to adjust from there.
[2019-09-27] MEDS: Famotidine/PF 20 mg/2ml Vial SLOW IVP SCH (07:43)
[2019-09-27] MEDS: Metoprolol Tartrate 25 MG TAB PO SCH ×2 (07:43→21:30)
[2019-09-27] MEDS: Clopidogrel Bisulfate 75 MG TAB PO SCH (07:44)
[2019-09-27] MEDS: Aspirin 325 MG TAB PO SCH (07:45)
[2019-09-27] MEDS: Promethazine HCl 25 MG/ML VIAL SLOW IVP PRN ×2 (07:53→17:32)
[2019-09-27] MEDS ORDERED: Enoxaparin Sodium 30 MG/0.3 ML SYRINGE SC SCH (09:00)
--- NOTE | 2019-09-27 09:28 | RAD ---
PORTABLE CHEST 1 VIEW: DATE: 09/27/2019. TIME: 4:55 a.m. HISTORY: Post open heart surgery. FINDINGS/IMPRESSION: No significant interval change is seen since the previous day's exam. POS: [facility]
[2019-09-27] MEDS ORDERED: HumaLOG 300 UNITS/3 ML VIAL SC PRN (10:46)
[2019-09-27] MEDS ORDERED: Dextrose 50% Abboject 50 ML SYRINGE SLOW IVP PRN (10:46)
[2019-09-27] MEDS ORDERED: Dextrose 5% in Water 1,000 ML IV PRN (10:46)
[2019-09-27] MEDS ORDERED: Insulin Glargine 20 UNITS in Pre-Filled Syringe 1 EACH SC SCH ×3 (11:24→21:00)
[2019-09-27] MEDS: Insulin Regular 300 UNITS/3 ML VIAL SC PRN ×2 (17:22→20:25)
--- NOTE | 2019-09-27 19:15 | PRG ---
DATE OF SERVICE: 09/27/2019 SUBJECTIVE: Ms. Duong is doing well. She is in sinus rhythm. No complaints. She is sleeping now. OBJECTIVE: VITAL SIGNS: Her blood pressure is 121/61, pulse is in the 80s and sinus. LUNGS: Clear. CARDIAC: Normal S1, normal S2. ABDOMEN: Soft and nontender. On the monitor, there is some ST elevation, probably some pericardial inflammation. ASSESSMENT: 1. Status post bypass, doing well. 2. Tachycardia-bradycardia syndrome previously. PLAN: 1. We will resume amiodarone orally, high risk of atrial fibrillation. 2. Pacemaker wires in place if needed. Job ID: [id number]
[2019-09-27] MEDS: Famotidine 20 MG TAB PO SCH (20:24)
[2019-09-28] MEDS: Amiodarone 450 MG, Admixture Fee 1 EACH in Dextrose 5% in Water 250 ML IVPB SCH ×2 (00:24→16:36)
[2019-09-28] MEDS: Insulin Regular 300 UNITS/3 ML VIAL SC PRN ×6 (00:26→20:17)
[2019-09-28] MEDS: Promethazine HCl 25 MG/ML VIAL SLOW IVP PRN ×2 (01:10→23:04)
[2019-09-28] MEDS: HYDROcodone/Acetaminophen 5/325 mg Tablet PO PRN ×2 (01:16→06:16)
[2019-09-28 04:06] LABS: #Lymphocytes 1.9 thou/uL (1.20-3.40); #Monocytes 1.1 thou/uL (0.11-0.59); #Neutrophils 8.9 thou/uL (1.40-6.50); %Basophils 0.2 % (0.0-1.0); %Eosinophils 0.2 % (0.0-10.0); %Lymphocytes 16.1 % (21.0-51.0); %Monocytes 9.4 % (0.0-10.0); %Neutrophils 74.2 % (42.0-75.0); Hemoglobin 7.2 g/dL (12.0-16.0); Mean Corpuscular HGB CONC 34.1 g/dL (32.0-36.0); Mean Corpuscular Hemoglobin 37.5 pg (27.0-31.0); Mean Platelet Volume 8.6 fL (7.4-10.4); Platelet Count 161 thou/uL (130-400); RBC Distribution Width 13.8 % (11.5-14.5); Red Blood Cell (RBC) Count 1.91 mill/uL (4.20-5.40); White Blood Cell (WBC) Count 11.9 thou/uL (4.8-10.8)
[2019-09-28 04:26] LABS: Anion Gap 6 mmol/L (10-20); BUN (Urea Nitrogen) 33 mg/dL (9.8-20.1); Calc. Creatinine Clearance 80 mL/min (70-130); Calcium 9.6 mg/dL (7.8-10.44); Carbon Dioxide 27 mmol/L (23-31); Chloride 109 mmol/L (98-107); Estimated GFR-MDRD 62; Glucose 130 mg/dL (83-110); Potassium 4.4 mmol/L (3.5-5.1); Sodium 138 mmol/L (136-145)
[2019-09-28] MEDS: Levothyroxine Sodium 50 MCG TAB PO SCH (05:18)
[2019-09-28] MEDS: Amiodarone 200 MG TAB PO SCH ×4 (05:25→20:17)
--- NOTE | 2019-09-28 05:50 | PDOC.FM ---
- Subjective Subjective: Mrs. Duong appeared comfortable in bed at the time of evaluation, but she seemed to be moderately confused. Per nursing staff, she had several episodes of delirium where she tried to get out of bed unassisted and could not remember basic facts about her hospital stay. She stated that she continued to experience severe chest pain, but denied continued N/V or shortness of breath. - Objective Vital Signs & Weight: Vital Signs (12 hours) Temp Pulse Ox 09/28/19 04:00 98.5 F 97 09/28/19 00:00 98.6 F 09/27/19 20:00 98.0 F 09/27/19 19:14 96 Weight Weight 92.1 kg Most Recent Monitor Data Heart Rate from ECG 80 NIBP 112/58 NIBP BP-Mean 76 Respiration from ECG 14 SpO2 98 I&O: 09/26/19 09/27/19 09/28/19 06:59 06:59 06:59 Intake Total 1550 2646.0 201 Output Total 1385 940 Balance 1550 1261.0 -739 Result Diagrams: 09/28/19 03:45 09/28/19 03:45 Phys Exam - Physical Examination Constitutional: NAD HEENT: moist MMs, sclera anicteric, oral pharynx no lesions Right ocular prosthesis Neck: no JVD, supple, full ROM Respiratory: no wheezing, no rales, no rhonchi, clear to auscultation bilateral Cardiovascular: RRR, no significant murmur, no rub Chest tubes in place - no erythema or drainage Gastrointestinal: soft, non-tender, no distention, positive bowel sounds Musculoskeletal: no edema, pulses present s/p Sternotomy - No erythema or drainage Neurological: non-focal, moves all 4 limbs Deviation from normal: Patient appeared mildly confused - could not remember medical staff Skin: no rash Dx/Plan - Plan Plan: 1. Anginal Chest Pain, 2/2 CAD -EKG (On Presentation): NSR w/ occasional PACs - no signs of ischemia -Intermittent periods of asymptomatic A-Fib, rate controlled -Trops: 0.127, 0.151, 0.187, 0.126 (I) -TSH: 1.27 / M.6 / Phos: 3.0 -Triglycerides(111) / Cholesterol (145) / HDL (46) / LDL (77) -Cardiology: Consulted, performed Heart Cath on 09/[address] a stent, discovered significant blockage of LAD -CV Surgery: Consulted, performed 3-vessel CABG on 09/26 without significant intraoperative or post-operative complications 2. CAD -Patient reportedly had 3 stents placed in 2014, unsure if she's ever had an [place] -Additional stent placed during 09/21 heart cath -Atorvastatin 40 mg PO daily -See #1 3. DM2, poorly controlled -Glucose: 130 on 09/28 -Lantus 20U QAM - consider increasing to 30U on 09/29 -HgA1C: 8.5 -Hypoglycemia Protocol -Calculate daily Insulin requirements and adjust Basal Insulin as needed 4. Macrocytic Anemia -Folate: 14 / B12: <109 -s/p B12 supplementation -Ensure continued B12 supplementation prior to DC 5. NHUNG vs CKD, resolved -Cr: 1.0 on admission > 0.88 on 09/28 -No previous labs for comparison -LR @ 75 ml/hr 6. HTN, controlled -BP:112/69 on 09/28 7. Paryoxysmal A-Fib -Dr. William added Amiodarone as her risk of A-Fib is high s/p CABG -Currently on Amiodarone gtt in ICU - transitioning to PO -Currently being monitored in ICU Code: DNAR Diet: Heart Healthy / Carbohydrate Conscious Activity: Ad payton DVT PPx: SCDs Dispo: Patient currently stable in ICU. Continue to coordinate closely with Cardiology and CV Surgery as patient recovers from CABG. Continue to manage other comorbid conditions, specifically with respect to DM2. Consider adjusting Lantus as patient increases PO intake. Expected LOS > 48H. Addendum - Attending - Attending Attestation Date/Time: 09/28/19 2719 I personally evaluated the patient and discussed the management with Dr. Metz. I agree with the History, Examination, Assessment and Plan documented above with any addition or exceptions noted below. The patient is confused. She is anemic, transfusing 1 unit. Increasing insulin dosing.
[2019-09-28] MEDS: Aspirin 325 MG TAB PO SCH (08:27)
[2019-09-28] MEDS: Metoprolol Tartrate 25 MG TAB PO SCH ×2 (08:27→20:16)
[2019-09-28] MEDS: Clopidogrel Bisulfate 75 MG TAB PO SCH (08:28)
[2019-09-28] MEDS: Famotidine 20 MG TAB PO SCH ×2 (08:28→20:16)
[2019-09-28] MEDS: Enoxaparin Sodium 40 MG/0.4 ML SYRINGE SC SCH (08:28)
[2019-09-28] MEDS ORDERED: Cyanocobalamin 1000 MCG/ML VIAL IM SCH ×2 (09:00→10:30)
--- NOTE | 2019-09-28 09:26 | PRG ---
DATE OF SERVICE: 09/28/2019 SUBJECTIVE: Ms. Duong is doing better. She is going in and out of atrial fibrillation. She has intermittent nausea, but she has been up in the chair for a couple of hours. OBJECTIVE: VITAL SIGNS: Her blood pressure is 120/53, pulse 90 and sinus currently. LUNGS: Clear. CARDIAC: Normal S1, normal S2. ABDOMEN: Soft and nontender. ASSESSMENT: 1. Status post coronary artery bypass grafting. 2. Atrial fibrillation, paroxysmal. 3. Nausea. PLAN: 1. She is on IV amiodarone. 2. We will also start oral amiodarone. 3. Leave pacemaker wires at least until tomorrow. Job ID: [id number]
--- NOTE | 2019-09-28 14:45 | RAD ---
PORTABLE CHEST: Date: 09/28/19 HISTORY: Postop open heart surgery. COMPARISON: Prior day's exam. FINDINGS: Heart size is enlarged. There are postop sternotomy changes. Right subclavian line is present. The kishore ngs are clear of infiltrates. IMPRESSION: Cardiomegaly. Postop sternotomy change. POS: [facility]
[2019-09-28] MEDS: Ondansetron PF 4 MG/2 ML Vial IVP PRN (20:16)
[2019-09-28] MEDS: Insulin Glargine 30 UNITS in Pre-Filled Syringe 1 EACH SC SCH (20:17)
[2019-09-28] MEDS: Atorvastatin Calcium 40 MG TAB PO SCH (20:17)
[2019-09-29] MEDS: Insulin Regular 300 UNITS/3 ML VIAL SC PRN ×4 (00:27→20:21)
[2019-09-29] MEDS: HYDROcodone/Acetaminophen 5/325 mg Tablet PO PRN (01:00)
[2019-09-29 05:01] LABS: #Eosinphils 0.1 thou/uL (0.0-0.7); #Lymphocytes 2.1 thou/uL (1.20-3.40); #Monocytes 1.4 thou/uL (0.11-0.59); #Neutrophils 7.6 thou/uL (1.40-6.50); %Basophils 0.2 % (0.0-1.0); %Eosinophils 1.1 % (0.0-10.0); %Lymphocytes 18.6 % (21.0-51.0); %Monocytes 12.7 % (0.0-10.0); %Neutrophils 67.4 % (42.0-75.0); Hemoglobin 8.2 g/dL (12.0-16.0); Mean Corpuscular HGB CONC 33.5 g/dL (32.0-36.0); Mean Corpuscular Hemoglobin 35.3 pg (27.0-31.0); Mean Platelet Volume 8.7 fL (7.4-10.4); Platelet Count 180 thou/uL (130-400); RBC Distribution Width 16.3 % (11.5-14.5); Red Blood Cell (RBC) Count 2.31 mill/uL (4.20-5.40); White Blood Cell (WBC) Count 11.2 thou/uL (4.8-10.8)
[2019-09-29 05:21] LABS: Anion Gap 8 mmol/L (10-20); BUN (Urea Nitrogen) 34 mg/dL (9.8-20.1); Calc. Creatinine Clearance 93 mL/min (70-130); Calcium 9.2 mg/dL (7.8-10.44); Carbon Dioxide 28 mmol/L (23-31); Chloride 107 mmol/L (98-107); Estimated GFR-MDRD 74; Glucose 97 mg/dL (83-110); Potassium 4.2 mmol/L (3.5-5.1); Sodium 139 mmol/L (136-145)
[2019-09-29] MEDS: Levothyroxine Sodium 50 MCG TAB PO SCH (05:40)
[2019-09-29] MEDS ORDERED: Bisacodyl 10 MG SUPP PR PRN (07:02)
[2019-09-29] MEDS ORDERED: Bisacodyl 5 MG TAB PO PRN (07:02)
[2019-09-29] MEDS ORDERED: Guaifenesin DM 100-10/5 ML UDCUP PO PRN (07:02)
[2019-09-29] MEDS ORDERED: Nitroglycerin 0.4 MG TAB (25 Tab Bottle) SL PRN (07:02)
[2019-09-29] MEDS ORDERED: Ondansetron PF 4 MG/2 ML Vial IVP PRN (07:02)
[2019-09-29] MEDS ORDERED: Mineral Oil ENEMA PR PRN (07:02)
[2019-09-29] MEDS ORDERED: Mag-Al 1200 mg/1200 mg/30 ML UDCUP PO PRN (07:02)
[2019-09-29] MEDS ORDERED: Dextrose 50% Abboject 50 ML SYRINGE SLOW IVP PRN (07:14)
[2019-09-29] MEDS ORDERED: Dextrose 5% in Water 1,000 ML IV PRN (07:14)
--- NOTE | 2019-09-29 08:00 | RAD ---
Chest AP view INDICATION: Status post open-heart surgery COMPARISON: September 28, 2019 FINDINGS: Lungs:There is improving left basilar airspace opacity Cardiac silhouette:Cardiomegaly persists Pulmonary vasculature:Pulmonary vascular congestion is improved and remains mildly prominent Pleural spaces:There is a tiny left pleural effusion that persists. Upper abdomen:Postsurgical clips of the upper abdomen are stable Osseous structures: Midline sternotomy changes and post-CABG changes stable. Additional findings:Right subclavian central venous catheter is unchanged in position. IMPRESSION: Improved aeration of the left lung base. Persistent small left pleural effusion with pers istent mild cardiomegaly. Pulmonary vascular congestion has improved. Right subclavian central venous catheter stable. No pneumothorax.
--- NOTE | 2019-09-29 08:13 | PDOC.FM ---
- Subjective Subjective: Ms. Duong was resting comfortably in her hospital bed at the time of evaluation. She continues to appear mildly confused, but her mentation was improved from the previous evaluation. She denies any acute overnight events, such as chest pain or shortness of breath, and specifically denied any ABD pain, N/V/D or dysuria. Per nursing staff, she had several episodes of delirium that resolved spontaneously with gentle re-orientation. - Objective Vital Signs & Weight: Vital Signs (12 hours) Temp Pulse Ox 09/29/19 07:08 97 09/29/19 07:00 98.5 F 09/29/19 04:00 98.1 F 09/29/19 00:00 99.0 F Weight Admit Weight 89.811 kg Weight 93.7 kg Most Recent Monitor Data Heart Rate from ECG 82 NIBP 119/52 NIBP BP-Mean 74 Respiration from ECG 17 SpO2 95 I&O: 09/28/19 09/29/19 09/30/19 06:59 06:59 06:59 Intake Total 598 2493 Output Total 990 848 Balance -392 1645 Result Diagrams: 09/29/19 04:45 09/29/19 04:45 Phys Exam - Physical Examination Constitutional: NAD HEENT: moist MMs, sclera anicteric, oral pharynx no lesions Right ocular prosthesis Neck: supple, full ROM Respiratory: no wheezing, no rales, no rhonchi, clear to auscultation bilateral Cardiovascular: RRR, no significant murmur, no rub Rub completely resolved Gastrointestinal: soft, non-tender, no distention, positive bowel sounds Musculoskeletal: pulses present, edema present Compression stockings in place Neurological: non-focal, moves all 4 limbs Psychiatric: normal affect Dx/Plan - Plan Plan: 1. Anginal Chest Pain, 2/2 CAD -EKG (On Presentation): NSR w/ occasional PACs - no signs of ischemia -Intermittent periods of asymptomatic A-Fib, rate controlled -Trops: 0.127, 0.151, 0.187, 0.126 (I) -TSH: 1.27 / M.6 / Phos: 3.0 -Triglycerides(111) / Cholesterol (145) / HDL (46) / LDL (77) -Cardiology: Consulted, performed Heart Cath on 09/[address] a stent, discovered significant blockage of LAD -CV Surgery: Consulted, performed 3-vessel CABG on 09/26 without significant intraoperative or post-operative complications 2. CAD -Patient reportedly had 3 stents placed in 2014, unsure if she's ever had an [place] -Additional stent placed during 09/21 heart cath -Atorvastatin 40 mg PO daily -See #1 3. DM2, poorly controlled -Glucose: 106 on 09/29 -Lantus increased to 30U QAM -HgA1C: 8.5 -Hypoglycemia Protocol -Calculate daily Insulin requirements and adjust Basal Insulin as needed 4. Macrocytic Anemia -Folate: 14 / B12: <109 -s/p B12 supplementation -Ensure continued B12 supplementation prior to DC 5. NHUNG vs CKD, resolved -Cr: 1.0 on admission > 0.76 on 09/29 -No previous labs for comparison -LR @ 75 ml/hr 6. HTN, controlled -BP: 119/52 on 09/29 -Currently being monitored in ICU 7. Paryoxysmal A-Fib -Dr. Wliliam added PO Amiodarone as her risk of A-Fib is high s/p CABG -Currently being monitored in ICU Code: DNAR Diet: Heart Healthy / Carbohydrate Conscious Activity: Ad payton DVT PPx: SCDs Dispo: Patient currently stable in ICU, will likely transfer to Telemetry Floor soon. Continue to coordinate closely with Cardiology and CV Surgery as patient recovers from CABG. Continue to manage other comorbid conditions, specifically with respect to DM2. Expected LOS > 48H. Addendum - Attending - Attending Attestation Date/Time: 09/29/19 1106 I personally evaluated the patient and discussed the management with Dr. Metz. I agree with the History, Examination, Assessment and Plan documented above with any addition or exceptions noted below. Blood glucose improved. Pt is feeling better but still confused at times. Can likely transition to tele.
[2019-09-29] MEDS ORDERED: Escitalopram Oxalate 10 mg Tablet PO SCH ×2 (09:00→11:45)
[2019-09-29] MEDS ORDERED: Aspirin 325 mg Enteric Coated Tablet PO SCH (09:00)
[2019-09-29] MEDS: Amiodarone 200 MG TAB PO SCH ×3 (09:09→20:18)
[2019-09-29] MEDS: Enoxaparin Sodium 40 MG/0.4 ML SYRINGE SC SCH (09:09)
[2019-09-29] MEDS: Polyethylene Glycol 3350 17 GM Packet PO SCH (09:09)
[2019-09-29] MEDS: Furosemide 40 MG TAB PO SCH (09:09)
[2019-09-29] MEDS: Clopidogrel Bisulfate 75 MG TAB PO SCH (09:10)
[2019-09-29] MEDS: Famotidine 20 MG TAB PO SCH ×2 (09:10→20:18)
[2019-09-29] MEDS: Aspirin 81 mg Enteric Coated Tablet PO SCH (09:10)
[2019-09-29] MEDS: Acetaminophen 325 MG TAB PO PRN (11:46)
[2019-09-29] MEDS: Ibuprofen 600 MG TAB PO PRN (15:51)
[2019-09-29] MEDS: Atorvastatin Calcium 40 MG TAB PO SCH (20:17)
[2019-09-29] MEDS: Insulin Glargine 30 UNITS in Pre-Filled Syringe 1 EACH SC SCH (20:19)
[2019-09-30 05:04] LABS: Anion Gap 7 mmol/L (10-20); BUN (Urea Nitrogen) 29 mg/dL (9.8-20.1); Calc. Creatinine Clearance 91 mL/min (70-130); Calcium 9.1 mg/dL (7.8-10.44); Carbon Dioxide 30 mmol/L (23-31); Chloride 107 mmol/L (98-107); Estimated GFR-MDRD 72; Glucose 64 mg/dL (83-110); Potassium 3.5 mmol/L (3.5-5.1); Sodium 140 mmol/L (136-145)
[2019-09-30] MEDS: Levothyroxine Sodium 50 MCG TAB PO SCH (05:22)
--- NOTE | 2019-09-30 05:30 | PDOC.FM ---
- Subjective Subjective: Mrs. Duong was resting comfortably in bed, finishing her breakfast at the time of evaluation. She did not endorse any acute overnight events, and denied any episodes of chest pain, N/V or diarrhea. Per Telemetry Staff, she had spontaneously regressed into A-Fib w/ RVR, with a rate in the 100s - 110s. - Objective Vital Signs & Weight: Vital Signs (12 hours) Temp Pulse Resp BP BP Pulse Ox 09/30/19 04:00 98.0 F 75 18 146/70 H 96 09/29/19 23:52 98.5 F 77 20 144/62 H 144/62 H 97 09/29/19 21:51 98.8 F 83 16 157/70 H 99 09/29/19 20:00 98.2 F Weight Admit Weight 89.811 kg Weight 93.077 kg Most Recent Monitor Data Heart Rate from ECG 81 NIBP 134/72 NIBP BP-Mean 92 Respiration from ECG 18 SpO2 99 I&O: 09/28/19 09/29/19 09/30/19 06:59 06:59 06:59 Intake Total 598 2493 855 Output Total 990 848 860 Balance -392 1645 -5 Result Diagrams: 09/29/19 04:45 09/30/19 03:30 Phys Exam - Physical Examination Constitutional: NAD HEENT: moist MMs, sclera anicteric, oral pharynx no lesions Right ocular prosthesis Neck: supple, full ROM Respiratory: no wheezing, no rales, no rhonchi, clear to auscultation bilateral Cardiovascular: no significant murmur, no rub Irregularly irregular rhythm, mildly tachycardic Gastrointestinal: soft, non-tender, no distention Musculoskeletal: no edema, pulses present +2 pulses at Radial Arteries Neurological: non-focal, moves all 4 limbs Psychiatric: normal affect Deviation from normal: Continues to demonstrate mild confusion/forgetfulness Skin: no rash Deviation from normal: Well healing sternotomy scar Dx/Plan - Plan Plan: 1. 3-Vessel CAD, s/p CABG -EKG (On Presentation): NSR w/ occasional PACs - no signs of ischemia -Intermittent periods of asymptomatic A-Fib, currently in the 100s - 110s -Trops: 0.127, 0.151, 0.187, 0.126 (I) -TSH: 1.27 / M.6 / Phos: 3.0 -Triglycerides(111) / Cholesterol (145) / HDL (46) / LDL (77) -Cardiology: Consulted, performed Heart Cath on 09/[address] a stent, discovered significant blockage of LAD -CV Surgery: Consulted, performed 3-vessel CABG on 09/26 without significant intraoperative or post-operative complications -Consider adjunct medication to further control A-Fib if no spontaneous resolution 2. CAD -Patient reportedly had 3 stents placed in 2014, unsure if she's ever had an [place] -Additional stent placed during 09/21 heart cath -Atorvastatin 40 mg PO daily -See #1 3. DM2, poorly controlled -Glucose: 64 on 09/30 -Lantus 30U QAM -Sliding Scale Insulin - 8U prior to transfer -HgA1C: 8.5 -Hypoglycemia Protocol 4. Macrocytic Anemia -Folate: 14 / B12: <109 -s/p B12 supplementation -Ensure continued B12 supplementation prior to DC 5. NHUNG vs CKD, resolved -Cr: 1.0 on admission > 0.76 on 09/29 -No previous labs for comparison 6. HTN, moderately controlled -BP: 146/70 on 09/30 -Currently being monitored in ICU 7. Paryoxysmal A-Fib -Dr. William added PO Amiodarone as her risk of A-Fib is high s/p CABG -Currently being monitored in ICU Code: DNAR Diet: Heart Healthy / Carbohydrate Conscious Activity: Ad payton DVT PPx: SCDs Dispo: Patient currently stable in ICU, will likely transfer to Telemetry Floor soon. Continue to coordinate closely with Cardiology and CV Surgery as patient recovers from CABG. Continue to manage other comorbid conditions, specifically with respect to DM2. Expected LOS > 48H.
[2019-09-30 09:36] LABS: Magnesium 1.9 mg/dL (1.6-2.6); Phosphorus 2.4 mg/dL (2.3-4.7)
[2019-09-30] MEDS: Enoxaparin Sodium 40 MG/0.4 ML SYRINGE SC SCH (10:04)
[2019-09-30] MEDS: Polyethylene Glycol 3350 17 GM Packet PO SCH (10:04)
[2019-09-30] MEDS: Furosemide 40 MG TAB PO SCH (10:04)
[2019-09-30] MEDS: Amiodarone 200 MG TAB PO SCH ×3 (10:04→20:40)
[2019-09-30] MEDS: Clopidogrel Bisulfate 75 MG TAB PO SCH (10:04)
[2019-09-30] MEDS: Aspirin 81 mg Enteric Coated Tablet PO SCH (10:04)
[2019-09-30] MEDS: Famotidine 20 MG TAB PO SCH ×2 (10:05→20:40)
[2019-09-30] MEDS: Escitalopram Oxalate 10 mg Tablet PO SCH (10:05)
[2019-09-30] MEDS: Insulin Regular 300 UNITS/3 ML VIAL SC PRN ×2 (11:43→16:58)
--- NOTE | 2019-09-30 11:44 | PRG ---
DATE OF SERVICE: Please see the note from Dr. Max Metz for which I agree. The patient was seen, evaluated, discussed and examined with the residents by bedside. The patient is recovering from coronary artery bypass graft surgery four days ago. Still intermittently going in and out of atrial fibrillation. Diabetes is well controlled on Lantus and just looking into possible long-term placement in rehab, etc. I am going to get a hatch supervisor's opinion on the atrial fibrillation prior to I get her back on a beta-suri, etc. Exam is fairly benign currently. Job ID: [id number]
[2019-09-30 13:36] LABS: ALT (SGPT) 15 U/L (8-55); AST (SGOT) 24 U/L (5-34); Albumin 3.1 g/dL (3.4-4.8); Alkaline Phosphatase 115 U/L (40-110); Bilirubin, Direct 0.9 mg/dL (0.1-0.3); Bilirubin, Total 1.7 mg/dL (0.2-1.2); Protein, Total 5.2 g/dL (6.0-8.3)
[2019-09-30] MEDS: Ibuprofen 600 MG TAB PO PRN ×2 (13:41→23:03)
[2019-09-30] MEDS: Amiodarone 450 MG in Dextrose 5% in Water 250 ML IVPB SCH (13:50)
[2019-09-30] MEDS: Acetaminophen 325 MG TAB PO PRN (14:55)
[2019-09-30] MEDS: Atorvastatin Calcium 40 MG TAB PO SCH (20:40)
[2019-09-30] MEDS: Insulin Glargine 30 UNITS in Pre-Filled Syringe 1 EACH SC SCH (20:41)
[2019-10-01] MEDS: Amiodarone 450 MG in Dextrose 5% in Water 250 ML IVPB SCH (03:05)
[2019-10-01] MEDS: Levothyroxine Sodium 50 MCG TAB PO SCH (05:15)
--- NOTE | 2019-10-01 06:15 | PDOC.FM ---
- Subjective Subjective: Mrs. Duong was resting comfortably in her hospital bed, watching TV at the time of evaluation. She denied any acute overnight events, specifically with regard to chest pain, shortness of breath or difficulty with ambulation. - Objective Vital Signs & Weight: Vital Signs (12 hours) Temp Pulse Resp BP Pulse Ox 10/01/19 04:00 98.5 F 75 18 134/65 96 09/30/19 23:00 98.3 F 84 20 143/66 H 95 09/30/19 19:00 98.3 F 92 20 157/83 H 96 Weight Admit Weight 89.811 kg Weight 89.494 kg Most Recent Monitor Data Heart Rate from ECG 81 NIBP 134/72 NIBP BP-Mean 92 Respiration from ECG 18 SpO2 99 I&O: 09/29/19 09/30/19 10/01/19 06:59 06:59 06:59 Intake Total 2493 1255 1480 Output Total 848 860 200 Balance 2244 168 7505 Result Diagrams: 10/01/19 06:27 10/01/19 06:27 Phys Exam - Physical Examination Constitutional: NAD HEENT: moist MMs, sclera anicteric, oral pharynx no lesions Right ocular prosthesis Neck: supple, full ROM Respiratory: no wheezing, no rales, no rhonchi, clear to auscultation bilateral Cardiovascular: RRR, no significant murmur, no rub Gastrointestinal: soft, non-tender, no distention, positive bowel sounds Musculoskeletal: pulses present +2 pulses at Radial Arteries Neurological: non-focal, moves all 4 limbs Deviation from normal: Mild bruising at surgical sites. No erythema or discharge Dx/Plan - Plan Plan: 1. 3-Vessel CAD, s/p CABG -EKG (On Presentation): NSR w/ occasional PACs - no signs of ischemia -Intermittent periods of asymptomatic A-Fib, currently in the 100s - 110s -Trops: 0.127, 0.151, 0.187, 0.126 (I) -TSH: 1.27 / M.6 / Phos: 3.0 -Triglycerides(111) / Cholesterol (145) / HDL (46) / LDL (77) -Cardiology: Consulted, performed Heart Cath on 09/[address] a stent, discovered significant blockage of LAD -CV Surgery: Consulted, performed 3-vessel CABG on 09/26 without significant intraoperative or post-operative complications -No subsequent episodes of A-Fib, per Telemetry staff. 2. CAD -Patient reportedly had 3 stents placed in 2014, unsure if she's ever had an VT -Additional stent placed during 09/21 heart cath -Atorvastatin 40 mg PO daily -See #1 3. DM2, poorly controlled -Glucose: 64 on 09/30 -Lantus 30U QAM -Sliding Scale Insulin - 8U prior to transfer -HgA1C: 8.5 -Hypoglycemia Protocol 4. Macrocytic Anemia -Folate: 14 / B12: <109 -s/p B12 supplementation -Ensure continued B12 supplementation prior to DC 5. NHUNG vs CKD, resolved -Cr: 1.0 on admission > 0.8 on 10/01 -No previous labs for comparison 6. HTN, moderately controlled -BP: 134/65 on 10/01 -Currently being monitored in ICU 7. Paryoxysmal A-Fib -Dr. William added PO Amiodarone as her risk of A-Fib is high s/p CABG -Currently being monitored in ICU Code: DNAR Diet: Heart Healthy / Carbohydrate Conscious Activity: Ad payton DVT PPx: SCDs Dispo: Patient currently stable on Telemetry Floor. Continue to coordinate closely with Cardiology and CV Surgery as patient recovers from CABG, plan for DC. Continue to manage other comorbid conditions, specifically with respect to DM2. Expected LOS < 48H.
[2019-10-01] MEDS: Ibuprofen 600 MG TAB PO PRN ×2 (06:28→21:31)
[2019-10-01 06:39] LABS: Hemoglobin 8.9 g/dL (12.0-16.0); Mean Corpuscular HGB CONC 33.5 g/dL (32.0-36.0); Mean Corpuscular Hemoglobin 35.9 pg (27.0-31.0); Mean Platelet Volume 8.2 fL (7.4-10.4); Platelet Count 276 thou/uL (130-400); RBC Distribution Width 16.1 % (11.5-14.5); Red Blood Cell (RBC) Count 2.47 mill/uL (4.20-5.40); White Blood Cell (WBC) Count 7.1 thou/uL (4.8-10.8)
[2019-10-01 06:56] LABS: Anion Gap 10 mmol/L (10-20); BUN (Urea Nitrogen) 20 mg/dL (9.8-20.1); Calc. Creatinine Clearance 85 mL/min (70-130); Calcium 9.2 mg/dL (7.8-10.44); Carbon Dioxide 30 mmol/L (23-31); Chloride 105 mmol/L (98-107); Estimated GFR-MDRD 70; Glucose 130 mg/dL (83-110); Potassium 3.8 mmol/L (3.5-5.1); Sodium 141 mmol/L (136-145)
[2019-10-01] MEDS: Amiodarone 200 MG TAB PO SCH ×3 (08:49→21:16)
[2019-10-01] MEDS: Furosemide 40 MG TAB PO SCH (08:49)
[2019-10-01] MEDS: Aspirin 81 mg Enteric Coated Tablet PO SCH (08:50)
[2019-10-01] MEDS: Escitalopram Oxalate 10 mg Tablet PO SCH (08:50)
[2019-10-01] MEDS: Enoxaparin Sodium 40 MG/0.4 ML SYRINGE SC SCH (08:50)
[2019-10-01] MEDS: Clopidogrel Bisulfate 75 MG TAB PO SCH (08:50)
[2019-10-01] MEDS: Famotidine 20 MG TAB PO SCH ×2 (08:50→21:16)
[2019-10-01] MEDS: Polyethylene Glycol 3350 17 GM Packet PO SCH (08:51)
--- NOTE | 2019-10-01 12:18 | PRG ---
DATE OF SERVICE: 10/01/[address] Please see note [address] Metz, for which I agree. The patient was seen, evaluated, discussed, and examined with residents by bedside. This is day of admission 12 for her status post PTCA and CABG. Intermittently, AFib with rapid ventricular response, but recently back in the normal sinus rhythm. Diabetes has been fairly well controlled. Question with her is when Cardiovascular Surgery and Cardiology let her go and how safe will she be. I am going to see what physical therapy says as far as with the walking or how much she can do on her own and see if she can reproduce normal activities of daily living on her own, such as going to the restroom, cooking, etc. May need to get rehab consult depending on the answers of some of these questions. Otherwise, stable on current medicines with a fairly normal exam. Job ID: [id number]
--- NOTE | 2019-10-01 16:06 | EKG ---
Test Reason : POST CABG Blood Pressure : / mmHG Vent. Rate : 080 BPM Atrial Rate : 080 BPM P-R Int : 178 ms QRS Dur : 110 ms QT Int : 466 ms P-R-T Axes : 055 -13 -02 degrees QTc Int : 537 ms Normal sinus rhythm Moderate voltage criteria for LVH, may be normal variant Nonspecific ST abnormality Prolonged QT Abnormal ECG Confirmed by DR. Eufemia CALZADA ([id number]) on 10/01/2019 4:06:30 PM Referred By: EMILY Confirmed By:DR. Eufemia CALZADA
--- NOTE | 2019-10-01 16:09 | EKG ---
Test Reason : STAT Blood Pressure : / mmHG Vent. Rate : 108 BPM Atrial Rate : 110 BPM P-R Int : 000 ms QRS Dur : 086 ms QT Int : 304 ms P-R-T Axes : 000 -17 017 degrees QTc Int : 407 ms Atrial fibrillation with rapid ventricular response Minimal voltage criteria for LVH, may be normal variant Abnormal ECG When compared with ECG of 26-SEP-2019 12:07, (Unconfirmed) Atrial fibrillation has replaced Sinus rhythm QRS duration has decreased ST elevation has replaced ST depression in Anterior leads QT has shortened Confirmed by DR. Eufemia CALZADA ([id number]) on 10/01/2019 4:08:38 PM Referred By: EMILY Confirmed By:DR. Eufemia CALZADA
[2019-10-01] MEDS: Insulin Regular 300 UNITS/3 ML VIAL SC PRN (17:39)
[2019-10-01] MEDS: Atorvastatin Calcium 40 MG TAB PO SCH (21:16)
[2019-10-01] MEDS: Insulin Glargine 30 UNITS in Pre-Filled Syringe 1 EACH SC SCH (21:16)
[2019-10-01] MEDS: Acetaminophen 325 MG TAB PO PRN (23:56)
--- NOTE | 2019-10-02 05:25 | PDOC.FM ---
- Subjective Subjective: Pt feels well this AM. denies CP. Denies SOB. Complains of itching where tape is covering central line and some itching over surgical scar. Would like to know where she will be going after this. Recently moved into apartment a few days before being hospitalized. Would like to do home or outpatient therapy if possible. Does not drive herself. Has someone to drive her to appts. - Objective MAR Reviewed: Yes Vital Signs & Weight: Vital Signs (12 hours) Temp Pulse Resp BP BP Pulse Ox 10/02/19 04:00 97.9 F 79 18 162/71 H 94 L 10/01/19 21:00 99.1 F 89 20 157/70 H 95 Weight Admit Weight 89.811 kg Weight 89.494 kg Most Recent Monitor Data Heart Rate from ECG 81 NIBP 134/72 NIBP BP-Mean 92 Respiration from ECG 18 SpO2 99 I&O: 09/30/19 10/01/19 10/02/19 06:59 06:59 06:59 Intake Total 1255 1480 Output Total 860 400 Balance 395 1080 Result Diagrams: 10/01/19 06:27 10/01/19 06:27 Phys Exam - Physical Examination Constitutional: NAD Respiratory: no wheezing, clear to auscultation bilateral Cardiovascular: RRR (irregular at times, no murmur) well healing sternotomy scar, no dehiscence or erythema. Gastrointestinal: soft, non-tender Musculoskeletal: no edema, pulses present Neurological: non-focal Psychiatric: normal affect Dx/Plan (1) S/P CABG x 3 Code(s): Z95.1 - PRESENCE OF AORTOCORONARY BYPASS GRAFT Status: Acute (2) Acute kidney injury superimposed on CKD Code(s): N17.9 - ACUTE KIDNEY FAILURE, UNSPECIFIED; N18.9 - CHRONIC KIDNEY DISEASE, UNSPECIFIED Status: Acute (3) CAD (coronary artery disease) Code(s): I25.10 - ATHSCL HEART DISEASE OF [place] CORONARY ARTERY W/O ANG PCTRS Status: Chronic (4) DM2 (diabetes mellitus, type 2) Status: Chronic (5) Macrocytic anemia with vitamin B12 deficiency Code(s): D51.9 - VITAMIN B12 DEFICIENCY ANEMIA, UNSPECIFIED Status: Chronic (6) Osteoporosis Code(s): M81.0 - AGE-RELATED OSTEOPOROSIS W/O CURRENT PATHOLOGICAL FRACTURE Status: Chronic - Plan Plan: 1. 3-Vessel CAD, s/p CABG -Intermittent periods of asymptomatic A-Fib, currently in the 100s - 110s -Cardiology: Consulted, performed Heart Cath on 09/[address] a stent, discovered significant blockage of LAD -CV Surgery: Consulted, performed 3-vessel CABG on 09/26 without significant intraoperative or post-operative complications -No subsequent episodes of A-Fib, per Telemetry staff. 2. CAD -Atorvastatin 40 mg PO daily -See #1 3. DM2, poorly controlled -Lantus 30U QHS -Sliding Scale Insulin post CABG -HgA1C: 8.5 -Hypoglycemia Protocol 4. Macrocytic Anemia -Folate: 14 / B12: <109 -s/p B12 supplementation -Ensure continued B12 supplementation prior to DC 5. NHUNG vs CKD, resolved -Cr: 1.0 on admission > 0.8 on 10/01 -No previous labs for comparison 6. HTN, moderately controlled - monitor 7. Paryoxysmal A-Fib -Dr. William added PO Amiodarone as her risk of A-Fib is high s/p CABG -continue to monitor Code: DNAR Diet: Heart Healthy / Carbohydrate Conscious Activity: Ad payton DVT PPx: SCDs Dispo: Patient currently stable on Telemetry Floor.
[2019-10-02] MEDS: Levothyroxine Sodium 50 MCG TAB PO SCH (06:16)
[2019-10-02] MEDS: Aspirin 81 mg Enteric Coated Tablet PO SCH (09:45)
[2019-10-02] MEDS: Amiodarone 200 MG TAB PO SCH ×3 (09:45→20:32)
[2019-10-02] MEDS: Furosemide 40 MG TAB PO SCH (09:45)
[2019-10-02] MEDS: Enoxaparin Sodium 40 MG/0.4 ML SYRINGE SC SCH (09:46)
[2019-10-02] MEDS: Escitalopram Oxalate 10 mg Tablet PO SCH (09:46)
[2019-10-02] MEDS: Clopidogrel Bisulfate 75 MG TAB PO SCH (09:46)
[2019-10-02] MEDS: Famotidine 20 MG TAB PO SCH ×2 (09:46→20:32)
[2019-10-02] MEDS: Polyethylene Glycol 3350 17 GM Packet PO SCH (09:47)
[2019-10-02 11:59] VITALS: BMI 35.2
--- NOTE | 2019-10-02 15:20 | PRG ---
DATE OF SERVICE: 10/02/2019 SUBJECTIVE: Ms. Duong is doing well. No complaints. She is still going in and out of atrial fibrillation, but the periods are shorter and the rate is controlled when she goes into it. OBJECTIVE: LUNGS: Clear. CARDIAC: Normal S1. Normal S2. ABDOMEN: Soft and nontender. EXTREMITIES: No edema. ASSESSMENT: 1. Paroxysmal atrial fibrillation. 2. Status post bypass surgery. 3. History of hypertension. PLAN: 1. Continue amiodarone orally. We will change to 400 mg twice a day. 2. Continue rehab. Job ID: [id number]
[2019-10-02] MEDS ORDERED: Potassium Chloride 20 MEQ TAB PO SCH (17:00)
--- NOTE | 2019-10-02 17:27 | PRG ---
DATE OF SERVICE: 10/02/2019 Ms. Duong is status post CABG. She is clinically stable. She is still having episodes of atrial fibrillation, and her amiodarone has been adjusted by Cardiology. She is likely ready for discharge to cardiac rehabilitation. Job ID: [id number]
[2019-10-02] MEDS: Insulin Regular 300 UNITS/3 ML VIAL SC PRN ×2 (17:44→21:45)
[2019-10-02] MEDS: Acetaminophen 325 MG TAB PO PRN (20:32)
[2019-10-02] MEDS: Atorvastatin Calcium 40 MG TAB PO SCH (20:32)
[2019-10-02] MEDS: Insulin Glargine 32 UNITS in Pre-Filled Syringe 1 EACH SC SCH (21:42)
[2019-10-03] MEDS: Levothyroxine Sodium 50 MCG TAB PO SCH (05:54)
[2019-10-03] MEDS: Ibuprofen 600 MG TAB PO PRN (06:08)
--- NOTE | 2019-10-03 06:11 | PDOC.FM ---
- Subjective Subjective: Pt denies pain, SOB this AM. + itching over scar area. Asks if I can convince insurance to let her go to [place] because it is closer to friends/family and she misses her puppy bang. Came to tears and says she is "feeling blue" today. Has hx of MDD and has been getting her usual dose of lexapro. - Objective MAR Reviewed: Yes Vital Signs & Weight: Vital Signs (12 hours) Temp Pulse Resp BP Pulse Ox 10/03/19 04:00 98.1 F 73 16 148/70 H 94 L 10/03/19 00:00 97.5 F L 81 18 154/70 H 95 10/02/19 20:32 99 F 89 20 162/74 H 94 L Weight Admit Weight 90.083 kg Weight 84.64 kg Most Recent Monitor Data Heart Rate from ECG 81 NIBP 134/72 NIBP BP-Mean 92 Respiration from ECG 18 SpO2 99 I&O: 10/01/19 10/02/19 10/03/19 06:59 06:59 06:59 Intake Total 1480 Output Total 400 Balance 1080 Result Diagrams: 10/01/19 06:27 10/01/19 06:27 Phys Exam - Physical Examination Constitutional: NAD Respiratory: no wheezing, clear to auscultation bilateral Cardiovascular: RRR (soft systolic murmur over LUSB grade 2/6) Gastrointestinal: soft, non-tender, no distention Musculoskeletal: no edema Neurological: non-focal Psychiatric: A&O x 3 (sad mood, congruent affect.) Dx/Plan (1) S/P CABG x 3 Code(s): Z95.1 - PRESENCE OF AORTOCORONARY BYPASS GRAFT Status: Acute (2) Acute kidney injury superimposed on CKD Code(s): N17.9 - ACUTE KIDNEY FAILURE, UNSPECIFIED; N18.9 - CHRONIC KIDNEY DISEASE, UNSPECIFIED Status: Acute (3) CAD (coronary artery disease) Code(s): I25.10 - ATHSCL HEART DISEASE OF [place] CORONARY ARTERY W/O ANG PCTRS Status: Chronic (4) DM2 (diabetes mellitus, type 2) Status: Chronic (5) Macrocytic anemia with vitamin B12 deficiency Code(s): D51.9 - VITAMIN B12 DEFICIENCY ANEMIA, UNSPECIFIED Status: Chronic (6) Osteoporosis Code(s): M81.0 - AGE-RELATED OSTEOPOROSIS W/O CURRENT PATHOLOGICAL FRACTURE Status: Chronic - Plan Plan: 74-yo female admitted for chest pain: 3-Vessel CAD, s/p CABG -overnight telemetry sinus rhythm HR 60-80s -Cardiology: Consulted, performed Heart Cath on 09/[address] a stent, discovered significant blockage of LAD -CV Surgery: Consulted, performed 3-vessel CABG on 09/26 without significant intraoperative or post-operative complications -pending placement at SNF for cardiac rehab and PT/OT CAD -Atorvastatin 40 mg PO daily -See #1 DM2, poorly controlled -Lantus 32U QHS -Sliding Scale Insulin post CABG -HgA1C: 8.5 -Hypoglycemia Protocol -Continue optimization of insulin regimen Macrocytic Anemia due to B12 deficiency - continue B12 1000 mcg daily NHUNG, resolved - monitor HTN, moderately controlled - monitor. - restarted home metoprolol 50mg BID Paryoxysmal A-Fib -Dr. William consulted, appreciate recs. PO Amiodarone dose changed to 400mg BID -continue to monitor Code: DNAR Diet: Heart Healthy / Carbohydrate Conscious Activity: Ad payton DVT PPx: SCDs Dispo: Patient currently stable on Telemetry Floor. Will call for peer to peer with [employer] today at 0800. Will advocate for [facility] placement for patient.
[2019-10-03] MEDS: Amiodarone 200 MG TAB PO SCH ×2 (07:59→20:32)
[2019-10-03] MEDS: Aspirin 81 mg Enteric Coated Tablet PO SCH (07:59)
[2019-10-03] MEDS: Cyanocobalamin (Vitamin B-12) 1,000 MCG TAB PO SCH (07:59)
[2019-10-03] MEDS: Famotidine 20 MG TAB PO SCH ×2 (07:59→20:32)
[2019-10-03] MEDS: Furosemide 40 MG TAB PO SCH (07:59)
[2019-10-03] MEDS: Clopidogrel Bisulfate 75 MG TAB PO SCH (08:00)
[2019-10-03] MEDS: Polyethylene Glycol 3350 17 GM Packet PO SCH (08:00)
[2019-10-03] MEDS: Escitalopram Oxalate 10 mg Tablet PO SCH (08:00)
[2019-10-03] MEDS: Enoxaparin Sodium 40 MG/0.4 ML SYRINGE SC SCH (08:06)
--- NOTE | 2019-10-03 08:15 | PDOC.BPN ---
- Brief Progress Note Called [employer] for Peer to Peer and Spoke to Dr. Kim. Reviewed pt PT and assist requirements. States she will be approved based on the notes he read. Pt would prefer to be in [facility]. Will pass this on to Case mgmt.
[2019-10-03] MEDS ORDERED: HumaLOG 300 UNITS/3 ML VIAL SC PRN (09:10)
[2019-10-03] MEDS ORDERED: Losartan 25 MG TAB PO SCH (09:35)
--- NOTE | 2019-10-03 11:47 | PRG ---
DATE OF SERVICE: 10/03/2019 Ms. Duong is sitting quietly in bed, in no distress. She has been placed in a rehab bed and will be discharged later today. We also appreciate the input from Dr. William who has added valsartan 80 mg b.i.d. to her regimen of metoprolol, aspirin and atorvastatin. She has been urged to follow up also with her PCP. Job ID: [id number]
[2019-10-03] MEDS: Acetaminophen 325 MG TAB PO PRN ×2 (15:39→21:53)
--- NOTE | 2019-10-03 18:46 | PRG ---
DATE OF SERVICE: 10/03/2019 SUBJECTIVE: Ms. Duong is recovering, doing better. OBJECTIVE: VITAL SIGNS: Her blood pressure is 156/70, pulse 63, regular. LUNGS: Clear. CARDIAC: Normal S1, normal S2. ASSESSMENT: 1. Status post bypass surgery. 2. Hypertension. 3. Mild anemia. 4. Paroxysmal atrial fibrillation, less and less atrial fibrillation. PLAN: 1. Angiotensin receptor suri added. 2. Continue aspirin and she is also on reduced dose Plavix. Job ID: [id number]
[2019-10-03] MEDS: Atorvastatin Calcium 40 MG TAB PO SCH (20:32)
[2019-10-03] MEDS: Valsartan 80 MG TAB PO SCH (20:32)
[2019-10-03] MEDS: Insulin Glargine 32 UNITS in Pre-Filled Syringe 1 EACH SC SCH (20:33)
[2019-10-04 05:08] LABS: #Basophils 0.1 thou/uL (0.0-0.2); #Eosinphils 0.7 thou/uL (0.0-0.7); #Lymphocytes 2.6 thou/uL (1.20-3.40); #Monocytes 1.4 thou/uL (0.11-0.59); %Basophils 0.6 % (0.0-1.0); %Eosinophils 7.1 % (0.0-10.0); %Lymphocytes 26.7 % (21.0-51.0); %Monocytes 14.6 % (0.0-10.0); %Neutrophils 51.1 % (42.0-75.0); Hemoglobin 8.5 g/dL (12.0-16.0); Mean Corpuscular HGB CONC 32.8 g/dL (32.0-36.0); Mean Corpuscular Hemoglobin 34.8 pg (27.0-31.0); Mean Platelet Volume 7.9 fL (7.4-10.4); Platelet Count 434 thou/uL (130-400); RBC Distribution Width 16.6 % (11.5-14.5); Red Blood Cell (RBC) Count 2.43 mill/uL (4.20-5.40); White Blood Cell (WBC) Count 9.7 thou/uL (4.8-10.8)
[2019-10-04 05:30] LABS: ALT (SGPT) 13 U/L (8-55); AST (SGOT) 25 U/L (5-34); Albumin 2.9 g/dL (3.4-4.8); Alkaline Phosphatase 114 U/L (40-110); Anion Gap 13 mmol/L (10-20); BUN (Urea Nitrogen) 18 mg/dL (9.8-20.1); Calc. Creatinine Clearance 80 mL/min (70-130); Calcium 9.1 mg/dL (7.8-10.44); Carbon Dioxide 28 mmol/L (23-31); Chloride 104 mmol/L (98-107); Estimated GFR-MDRD 66; Globulin 2.5 g/dL (2.4-3.5); Glucose 130 mg/dL (83-110); Potassium 4.1 mmol/L (3.5-5.1); Protein, Total 5.4 g/dL (6.0-8.3); Sodium 141 mmol/L (136-145)
[2019-10-04] MEDS: Levothyroxine Sodium 50 MCG TAB PO SCH (05:41)
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
[2019-10-04] MEDS: Furosemide 40 MG TAB PO SCH (08:06)
[2019-10-04] MEDS ORDERED: Amiodarone 200 MG TAB PO SCH (09:00)
[2019-10-04] MEDS: Valsartan 80 MG TAB PO SCH (09:07)
[2019-10-04] MEDS: Famotidine 20 MG TAB PO SCH (09:07)
[2019-10-04] MEDS: Cyanocobalamin (Vitamin B-12) 1,000 MCG TAB PO SCH (09:07)
[2019-10-04] MEDS: Aspirin 81 mg Enteric Coated Tablet PO SCH (09:07)
[2019-10-04] MEDS: Escitalopram Oxalate 10 mg Tablet PO SCH (09:07)
[2019-10-04] MEDS: Acetaminophen 325 MG TAB PO PRN (09:08)
[2019-10-04] MEDS: Polyethylene Glycol 3350 17 GM Packet PO SCH (09:08)
--- NOTE | 2019-10-04 09:22 | PRG ---
DATE OF SERVICE: 10/04/2019 SUBJECTIVE: Ms. Duong is doing better this morning. She did develop atrial flutter transiently this morning with rate control. She is asymptomatic with that. She is back in sinus now. OBJECTIVE: LUNGS: Clear. CARDIAC: Normal S1, normal S2. ABDOMEN: Soft and nontender. EXTREMITIES: Warm and dry. No clubbing or cyanosis or edema. ASSESSMENT: 1. Status post bypass surgery. 2. Hypertension. Blood pressure still high, but we just started angiotensin receptor blockers. 3. Atrial fibrillation, she had preoperative and postoperative. 4. Atrial flutter, just 1 brief episode this morning. PLAN: 1. To go home on amiodarone 200 mg twice a day. We will probably leave her on amiodarone in the immediate term. 2. Add Eliquis 5 mg twice a day. 3. Aspirin 81 mg a day. 4. Stop clopidogrel. 5. Okay to see us in the office in a couple of weeks. 6. She is also on metoprolol 50 mg a day and valsartan 80 mg twice a day, levothyroxine, and atorvastatin 40 mg a day. Job ID: [id number]
--- NOTE | 2019-10-04 11:35 | PRG ---
DATE OF SERVICE: 10/04/2019 Ms. Duong is sitting quietly in bed, in no distress. She is having no chest discomfort, no shortness of breath. Dr. William has added valsartan, and her BMP this morning showed a BUN of 18, creatinine of 0.84, and a potassium of 4.1. She will be discharged today to a swing bed in [place]. Job ID: [id number]
[2019-10-04 11:36] VITALS: BP 136/60; TEMP 98.6
[2019-10-04] MEDS ORDERED: Apixaban 5 MG TAB PO SCH (21:00)
--- NOTE | 2019-10-05 22:08 | PQF ---
PASTOR TAMAYO KENNON [id number] [id number] CLINICAL DOCUMENTATION CLARIFICATION FORM: POST DISCHARGE Addendum to original discharge summary date: ____ Late entry note date: __ DATE:10/05/19 ATTN: Kayla Sher Please exercise your independent, professional judgment in responding to the clarification form. Clinical indicators are provided on the bottom of this form for your review Please check appropriate box(s): [ ] NSTEMI due to In stent Restenosis [ ] Type 2 NSTEMI due to Demand Ischemia [ ] Type 2 NSTEMI due to other condition, please specify: [ ] No NSTEMI [ ] Othe condition, please specify: [ ] Unable to determine In addition, please specify: Present on Admission (POA): [ ] Yes [ ] No [ ] Unable to determine CLINICAL INDICATORS - SIGNS / SYMPTOMS / LABS Family med H&P p1 09/19 Dr Bartlett Chest pain started 2-3weeks ago, worsened starting this past Wednesday Family med H&P p1 09/19 Dr Bartlett Pt reports she took her nitroglycerin and it seemed to help up until yesterday when her BP started to be 90s/50s Family med H&P p4 09/19 Dr Bartlett nitro seemed to improved pain originally, then stopped working Family med H&P p4 09/19 Dr Bartlett Chest pain, rule out Acute Myocardial infarction Family med H&P p6 09/19 Dr Bartlett trending troponins, indeterminant at this time Family med H&P p6 09/19 Dr Bartlett EKG shows no ST changes suggestive of ischemia RISKS: Family med H&P p1 09/19 CAD s/p 3 stents Family med H&P p1 09/19 DM uncontrolled Family med H&P p6 09/19 Typical chest on, unstable angina vs NSTEMI type 2 Cardiac Diagnosis 09/21 Ostial RCA 90% in stent restenosis, stent extends into Aorta TREATMENTS: Family med H&P p1 09/19 - Asa 324, nitro paste Family med H&P p4 09/19 - For TTE Cardio /6 Kayla Sher Cardiac Diagnosis 09/21 [facility] with selective Coronary angiogram Operative report 09/26 CABG (This form is maintained as a part of the permanent medical record) 2014 [employer] All Rights Reserved [email or web address] [not provided] MTDD
== END 2019-10-04 15:00 | disposition swing bed (61) | DRG 234 ==
LOC: ERS 12:20 → 2NO 14:41 → CCU 09-26 07:56 → 2NO 09-29 21:42
PROVIDERS: ADMIT Family Medicine; ATTEND Family Medicine
PROC: 4A023N7 Measurement of Cardiac Sampling and Pressure, Left Heart, Percutaneous Approach (ICD-10-PCS; 2019-09-21)
PROC: B2111ZZ Fluoroscopy of Multiple Coronary Arteries using Low Osmolar Contrast (ICD-10-PCS; 2019-09-21)
PROC: B2151ZZ Fluoroscopy of Left Heart using Low Osmolar Contrast (ICD-10-PCS; 2019-09-21)
PROC: 3E02340 Introduction of Influenza Vaccine into Muscle, Percutaneous Approach (ICD-10-PCS; 2019-09-23)
PROC: 021109W Bypass Coronary Artery, Two Arteries from Aorta with Autologous Venous Tissue, Open Approach (ICD-10-PCS; principal; 2019-09-26)
PROC: 02100Z9 Bypass Coronary Artery, One Artery from Left Internal Mammary, Open Approach (ICD-10-PCS; 2019-09-26)
PROC: 06BQ0ZZ Excision of Left Saphenous Vein, Open Approach (ICD-10-PCS; 2019-09-26)
PROC: 02L70ZK Occlusion of Left Atrial Appendage, Open Approach (ICD-10-PCS; 2019-09-26)
PROC: 5A1221Z Performance of Cardiac Output, Continuous (ICD-10-PCS; 2019-09-26)
PROC: 30233N1 Transfusion of Nonautologous Red Blood Cells into Peripheral Vein, Percutaneous Approach (ICD-10-PCS; 2019-09-28)
DX: T82.855A Stenosis of coronary artery stent, initial encounter (principal); N17.9 Acute kidney failure, unspecified; I48.92 Unspecified atrial flutter; Z79.890 Hormone replacement therapy; I25.10 Atherosclerotic heart disease of native coronary artery without angina pectoris; I48.0 Paroxysmal atrial fibrillation; M81.0 Age-related osteoporosis without current pathological fracture; F32.9 Major depressive disorder, single episode, unspecified; D53.9 Nutritional anemia, unspecified; E11.65 Type 2 diabetes mellitus with hyperglycemia; E03.9 Hypothyroidism, unspecified; I49.5 Sick sinus syndrome; N18.9 Chronic kidney disease, unspecified; E53.8 Deficiency of other specified B group vitamins; Y83.1 Surgical operation with implant of artificial internal device as the cause of abnormal reaction of the patient, or of later complication, without mention of misadventure at the time of the procedure; Z79.82 Long term (current) use of aspirin; Z90.49 Acquired absence of other specified parts of digestive tract; Z90.710 Acquired absence of both cervix and uterus; Z79.02 Long term (current) use of antithrombotics/antiplatelets; Z79.899 Other long term (current) drug therapy; Z88.5 Allergy status to narcotic agent; Z23 Encounter for immunization; Z95.5 Presence of coronary angioplasty implant and graft
CPT/HCPCS: 36415; 36416; 36430; 70450; 71045; 76942; 80048; 80053; 80061; 80076; 81003; 81015; 82550; 82553; 82607; 82746; 82747; 82947; 83036; 83690; 83735; 83880; 84100; 84443; 84484; 85025; 85027; 85610; 85730; 86850; 86900; 86901; 90471; 90662; 93005; 93010; 93306; 93458; 93798; 94760; C1769; G0008; J0282; J0690; J1100; J1265; J1642; J1644; J1650; J1815; J1885; J2001; J2250; J2405; J2440; J2550; J2720; J3010; J3370; J3420; J3475; J3480; J7070; P9016; P9045; Q0162; S0017; S0028

== ENCOUNTER 2019-11-18 07:17 | Observation (INO) | payer MEDICARE ==
[2019-11-18 07:52] LABS: #Eosinphils 0.1 thou/uL (0.0-0.7); #Lymphocytes 1.4 thou/uL (1.20-3.40); #Monocytes 0.7 thou/uL (0.11-0.59); #Neutrophils 3.4 thou/uL (1.40-6.50); %Basophils 0.5 % (0.0-1.0); %Eosinophils 1.1 % (0.0-10.0); %Lymphocytes 25.1 % (21.0-51.0); %Monocytes 12.3 % (0.0-10.0); Hemoglobin 11.5 g/dL (12.0-16.0); Mean Corpuscular HGB CONC 34.3 g/dL (32.0-36.0); Mean Corpuscular Hemoglobin 31.8 pg (27.0-31.0); Mean Corpuscular Volume 92.8 fL (78.0-98.0); Mean Platelet Volume 8.2 fL (7.4-10.4); Platelet Count 209 thou/uL (130-400); RBC Distribution Width 13.7 % (11.5-14.5); Red Blood Cell (RBC) Count 3.62 mill/uL (4.20-5.40); White Blood Cell (WBC) Count 5.5 thou/uL (4.8-10.8)
[2019-11-18 08:12] LABS: ALT (SGPT) 10 U/L (8-55); AST (SGOT) 22 U/L (5-34); Albumin 3.4 g/dL (3.4-4.8); Alkaline Phosphatase 125 U/L (40-110); Anion Gap 13 mmol/L (10-20); BUN (Urea Nitrogen) 13 mg/dL (9.8-20.1); Bilirubin, Total 0.6 mg/dL (0.2-1.2); Calc. Creatinine Clearance 0 mL/min (70-130); Carbon Dioxide 22 mmol/L (23-31); Chloride 103 mmol/L (98-107); Estimated GFR-MDRD 71; Globulin 2.9 g/dL (2.4-3.5); Glucose 152 mg/dL (83-110); Potassium 3.7 mmol/L (3.5-5.1); Protein, Total 6.3 g/dL (6.0-8.3); Sodium 134 mmol/L (136-145)
--- NOTE | 2019-11-18 08:58 | CT ---
CT BRAIN WITHOUT CONTRAST: HISTORY:Altered mental status COMPARISON:09/19/2019 FINDINGS: There are foci of decreased attenuation in the periventricular white matter, consistent with chronic small vessel ischemic disease. Old lacunar infarction in the left basal ganglia is again seen. No evidence of acute infarct, hemorrhage, midline shift or abnormal extra-axial fluid collections is seen. The ventricular size is appropriate and the basilar cisterns are patent. The bony calvarium is intact. There is mucosal disease in the paranasal sinuses. The right ocular prosthesis is again seen. IMPRESSION: No CT evidence of acute intracranial process.
--- NOTE | 2019-11-18 09:27 | RAD ---
PORTABLE CHEST ONE VIEW: 11/18/2019 7:49 a.m. HISTORY: Altered mental status. Chest pain. Cough. Dizziness. COMPARISON: 09/29/2019 FINDINGS: Changes of median sternotomy are present. The heart size is normal. The aorta is tortuous. There is m ild prominence of the pulmonary vascularity. No lobar consolidation, pneumothoraces or pleural effusi ons are seen. POS: H
[2019-11-18 09:34] LABS: Bilirubin Negative (Negative); Blood, Urine Negative (Negative); Clarity Clear (Clear); Glucose, Urine (Dipstick) Normal (Negative); Leukocyte Negative Leu/uL (Negative); Nitrite Negative (Negative); Protein, Urine (Dipstick) 10 mg/dL (Neg-Trace); Urobilinogen Normal mg/dL (Less than 2)
[2019-11-18] MEDS ORDERED: Sodium Chloride 0.9% 100 ML ONE (10:43)
[2019-11-18] MEDS ORDERED: cefTRIAXone\\ROCEPHIN 2 GM VIAL ONE (10:43)
--- NOTE | 2019-11-18 12:03 | HP ---
PRIMARY CARE PHYSICIAN: Rosario Edwards DO. REASON FOR ADMISSION: Altered mental status. HISTORY OF PRESENT ILLNESS: A 74-year-old female, who had a CABG done in September and subsequently the patient was discharged to [facility] and after that the patient was living with her sister, because she was getting cardiac rehabilitation. As per the patient's family member, multiple family member during festival time around [place] time have a flu-like illness and the patient was also started having cough and some vague chest discomfort and shortness of breath. Yesterday evening, the patient was having altered mental status. She was hallucinating. The patient was not acting normal. Last night, the patient fell down from bed without any injury and it was very hard for her and family member to bring her back to bed. She did not have any injury with the fall. She was not having any palpitation. Per family member, the patient was having low-grade fever. Today, in the emergency room, the patient was back to normal. She was alert and oriented x3. Her influenza screen is negative. Her routine blood test including CBC, BMP, and urinalysis normal. CT brain showed sinusitis, but no other finding. Family member also reported that in the emergency room the patient is much better and approaching towards her baseline. REVIEW OF SYSTEMS: CONSTITUTIONAL: Negative for weight loss or gain, ability to conduct usual activities. SKIN: Negative for rash, itching. EYES: Negative for double vision, pain. ENT/MOUTH: Negative for nose bleeding, neck stiffness, pain, tenderness. CARDIOVASCULAR: Negative for palpitations, dyspnea on exertion, orthopnea. RESPIRATORY: Negative for shortness of breath, wheezing, cough, hemoptysis, fever or night sweats. GASTROINTESTINAL: Negative for poor appetite, abdominal pain, heartburn, nausea, vomiting, constipation, or diarrhea. GENITOURINARY: Negative for urgency, frequency, dysuria, nocturia. MUSCULOSKELETAL: Negative for pain, swelling. NEUROLOGIC/PSYCHIATRIC: Negative for anxiety, depression. ALLERGY/IMMUNOLOGIC: Negative for skin rash, bleeding tendency. Please see my HPI for pertinent positives and negatives. All other review of systems reviewed and negative except as mentioned in HPI. PAST MEDICAL HISTORY: Diabetes type 2, hypertension, dyslipidemia, coronary artery disease with stent, CABG, osteoporosis. PAST SURGICAL HISTORY: Bilateral eye surgery, left arm cancerous lump removed, left foot surgery, right hip resurgery, appendicectomy, cholecystectomy, , hysterectomy, CABG, paroxysmal atrial fibrillation, hypothyroidism. PAST PSYCHIATRIC HISTORY: Anxiety and depression. SOCIAL HISTORY: The patient lives with her sister. No history of tobacco, alcohol, or illicit drug abuse. FAMILY HISTORY: No strong family history of premature coronary artery disease, stroke, or cancer. ALLERGIES: MORPHINE. MEDICATIONS: Current home medications; 1. Lipitor 40 mg p.o. daily. 2. Metoprolol-XL 50 mg daily. 3. Lexapro 20 mg daily. 4. Lasix 40 mg daily. 5. Valsartan 80 mg daily. 6. Amiodarone 200 mg daily. 7. Eliquis 5 mg twice daily. 8. Aspirin 81 mg daily. 9. Pepcid 20 mg daily. 10. Synthroid 50 mcg p.o. daily. 11. NovoLog insulin as per sliding scale. EMERGENCY ROOM COURSE: The patient has received Rocephin and IV fluid. PHYSICAL EXAMINATION: VITAL SIGNS: Currently, blood pressure 131/60, pulse 63, respiratory rate 18, temperature 98.3, saturation 97% on room air. Weight 90.7 kg. GENERAL: The patient is currently alert, awake, in no obvious acute distress. HEENT: Head; normocephalic and atraumatic. Eyes; pupils round, reactive to light. Extraocular muscle intact. ENT, oropharynx within normal limits. Moist mucous membranes. No oral lesion. No pharyngeal erythema. No exudate. NECK: Supple. No JVD. No thyromegaly. No carotid bruit. No jugular venous distention. LUNGS: Clear to auscultation without any rhonchi or rales. CARDIAC: S1 and S2 regular. No murmur. No gallop. No rub. ABDOMEN: Soft. Bowel sounds present. Nontender. Nondistended. No organomegaly. No mass. EXTREMITIES: No edema. Good distal pulsation. SKIN: No skin rash. HEMATOLOGICAL: No lymphadenopathy. NEUROLOGIC: Nonfocal examination. SIGNIFICANT LABORATORY DATA: CT brain showing periventricular white matter ischemic changes, no acute process, old lacunar infarct present, mucosal disease in paranasal sinuses. Chest x-ray unremarkable. Urinalysis normal. BMP; sodium 134, potassium 3.7, chloride 103, carbon dioxide 22, anion gap 13, BUN 13, creatinine 0.79, glucose 152, calcium 9.0 lactic acid 0.9. LFT; AST 22, ALT 10, alkaline phosphatase 125, albumin 3.4. BNP 223.6. Troponin 0.011. WBC 5.5, hemoglobin 11.5, platelet 209. ASSESSMENT AND PLAN: 1. Altered mental status, unclear etiology. The patient had hallucination that has been resolved currently. Influenza screen negative. Urinalysis normal. CT brain is negative for any acute process, viral infection possible given multiple family member having similar viral illness. At this point, the patient has sinusitis on the CT brain. We will initiate Rocephin 1 g q.24 hour. We will observe on telemetry floor. We will start PT evaluation. 2. Coronary artery disease with history of coronary artery bypass graft. Continue aspirin 81 mg daily, Lipitor 40 mg p.o. daily, Toprol-XL 50 mg p.o. daily, because the patient's blood pressure runs low and that is why we will hold on valsartan therapy for now. 3. Hypothyroidism, continue Synthroid 50 mcg p.o. daily. 4. Dyslipidemia, continue Lipitor 40 mg p.o. daily. 5. Paroxysmal atrial fibrillation, continue Eliquis 5 mg b.i.d., aspirin 81 mg daily, and Cordarone 200 mg daily, and Toprol-XL 50 mg p.o. daily. 6. Diabetes type 2. Continue insulin as per sliding scale protocol. Diabetic diet will be given. 7. Deep venous thrombosis prophylaxis, the patient is already on Eliquis therapy; GI prophylaxis, Pepcid 20 mg p.o. b.i.d. CODE STATUS: The patient is full code. The patient's daughter is surrogate decision maker. DISPOSITION PLAN: Based on clinical course, likely within 24 hours. Plan of care discussed with the family member at bedside in the emergency room. Job ID: [id number]
[2019-11-18] MEDS ORDERED: Dextrose 50% Abboject 50 ML SYRINGE SLOW IVP PRN (12:17)
[2019-11-18] MEDS ORDERED: Calcium Carbonate 500 MG ChewTAB PO PRN (12:17)
[2019-11-18] MEDS ORDERED: Loratadine 10 MG TAB PO PRN (12:17)
[2019-11-18] MEDS ORDERED: HumaLOG 300 UNITS/3 ML VIAL SC PRN (12:17)
[2019-11-18] MEDS ORDERED: Diabetic Tussin 200 MG/10 ML UDCUP PO PRN (12:17)
[2019-11-18] MEDS ORDERED: Bisacodyl 10 MG SUPP PR PRN (12:17)
[2019-11-18] MEDS ORDERED: Senokot S 8.6-50 MG TAB PO PRN (12:17)
[2019-11-18] MEDS ORDERED: hydrALAZINE 20 MG/ML VIAL SLOW IVP PRN (12:17)
[2019-11-18] MEDS ORDERED: cloNIDine 0.1 MG TAB PO PRN (12:17)
[2019-11-18] MEDS ORDERED: Artificial Tears 18 DROP/0.9 ML EA EYE PRN (12:17)
[2019-11-18] MEDS ORDERED: Loperamide HCl 2 MG CAP PO PRN (12:17)
[2019-11-18] MEDS ORDERED: Cepastat Lozenges 1 LOZ PO PRN (12:17)
[2019-11-18] MEDS ORDERED: Sodium Chloride 0.65% Nasal 44 ML BOT EA NARE PRN (12:17)
[2019-11-18] MEDS ORDERED: Dextrose 5% in Water 1,000 ML IV PRN (12:17)
[2019-11-18 14:15] VITALS: BMI 36.5
[2019-11-18] MEDS: HumaLOG 300 UNITS/3 ML VIAL SC PRN ×2 (17:20→20:30)
[2019-11-18] MEDS: Acetaminophen 325 MG TAB PO PRN (20:33)
[2019-11-18] MEDS: Docusate 100 MG CAP PO SCH (20:33)
[2019-11-18] MEDS: Apixaban 5 MG TAB PO SCH (20:34)
[2019-11-18] MEDS ORDERED: Famotidine 20 MG TAB PO SCH (21:00)
[2019-11-18] MEDS ORDERED: Atorvastatin Calcium 40 MG TAB PO SCH (21:00)
[2019-11-18] MEDS: Benzonatate 100 MG CAP PO PRN (21:34)
[2019-11-19 00:50] VITALS: TEMP 98.4
[2019-11-19 05:15] LABS: #Eosinphils 0.2 thou/uL (0.0-0.7); #Lymphocytes 2.7 thou/uL (1.20-3.40); #Monocytes 0.8 thou/uL (0.11-0.59); #Neutrophils 1.9 thou/uL (1.40-6.50); %Basophils 0.6 % (0.0-1.0); %Eosinophils 3.8 % (0.0-10.0); %Lymphocytes 47.7 % (21.0-51.0); %Monocytes 14.6 % (0.0-10.0); %Neutrophils 33.3 % (42.0-75.0); Hemoglobin 11.1 g/dL (12.0-16.0); Mean Corpuscular HGB CONC 34.3 g/dL (32.0-36.0); Mean Corpuscular Hemoglobin 32.3 pg (27.0-31.0); Mean Platelet Volume 8.2 fL (7.4-10.4); Platelet Count 191 thou/uL (130-400); RBC Distribution Width 13.5 % (11.5-14.5); Red Blood Cell (RBC) Count 3.43 mill/uL (4.20-5.40); White Blood Cell (WBC) Count 5.6 thou/uL (4.8-10.8)
[2019-11-19 05:34] LABS: Anion Gap 12 mmol/L (10-20); BUN (Urea Nitrogen) 11 mg/dL (9.8-20.1); Calc. Creatinine Clearance 87 mL/min (70-130); Carbon Dioxide 27 mmol/L (23-31); Chloride 106 mmol/L (98-107); Estimated GFR-MDRD 74; Glucose 116 mg/dL (83-110); Potassium 3.6 mmol/L (3.5-5.1); Sodium 141 mmol/L (136-145)
[2019-11-19] MEDS ORDERED: Levothyroxine Sodium 50 MCG TAB PO SCH (06:00)
[2019-11-19] MEDS ORDERED: traMADol HCl 50 MG TAB PO PRN (06:38)
[2019-11-19] MEDS ORDERED: Furosemide 40 MG TAB PO SCH (07:30)
[2019-11-19 08:13] VITALS: BP 152/68
[2019-11-19] MEDS: Apixaban 5 MG TAB PO SCH (08:58)
[2019-11-19] MEDS: Docusate 100 MG CAP PO SCH (08:59)
[2019-11-19] MEDS ORDERED: Famotidine 20 MG TAB PO SCH (09:00)
[2019-11-19] MEDS ORDERED: Cyanocobalamin (Vitamin B-12) 1,000 MCG TAB PO SCH (09:00)
[2019-11-19] MEDS ORDERED: Amiodarone 200 MG TAB PO SCH (09:00)
[2019-11-19] MEDS ORDERED: Valsartan 80 MG TAB PO SCH (09:00)
[2019-11-19] MEDS ORDERED: Escitalopram Oxalate 20 mg Tablet PO SCH (09:00)
[2019-11-19] MEDS ORDERED: Aspirin 81 mg Enteric Coated Tablet PO SCH (09:00)
[2019-11-19] MEDS ORDERED: Polyethylene Glycol 3350 17 GM Packet PO SCH (09:00)
[2019-11-19] MEDS: Benzonatate 100 MG CAP PO PRN (09:01)
[2019-11-19] MEDS: Acetaminophen 325 MG TAB PO PRN (09:01)
--- NOTE | 2019-11-19 10:15 | PDOC.HOSPP ---
- Subjective Encounter Date: 11/19/19 Encounter Time: 07:15 Subjective: Patient seen and examined. No new complaints. No overnight events - Objective Vital Signs & Weight: Vital Signs (12 hours) Temp Pulse Resp BP BP Pulse Ox 11/19/19 08:04 98.4 F 68 20 152/68 H 93 L 11/19/19 06:45 168/72 H 11/19/19 05:48 194/76 H 11/19/19 05:45 194/76 H 11/19/19 05:00 181/80 H 11/18/19 23:22 98.4 F 72 20 167/72 H 94 L Weight Weight 193 lb 3.2 oz I&O: 11/18/19 11/19/19 11/20/19 06:59 06:59 06:59 Intake Total 240 Balance 240 Result Diagrams: 11/19/19 04:52 11/19/19 04:52 Additional Labs: Accuchecks 11/18/19 11/18/19 20:32 16:28 POC Glucose 223 H 184 H Hospitalist ROS - Review of Systems ENT: denies: ear pain, ear discharge, nose pain, nose discharge, nose congestion , mouth pain, mouth swelling, throat pain, throat swelling, other Respiratory: denies: cough, dry, shortness of breath, hemoptysis, SOB with excertion, pleuritic pain, sputum, wheezing, other Cardiovascular: denies: chest pain, palpitations, orthopnea, paroxysmal noc. dyspnea, edema, light headedness, other Gastrointestinal: denies: nausea, vomiting, abdominal pain, diarrhea, constipation, melena, hematochezia, other Genitourinary: denies: dysuria, frequency, incontinence, hematuria, retention, other Musculoskeletal: denies: neck pain, shoulder pain, arm pain, back pain, hand pain, leg pain, foot pain, other - Medication Medications: Active Medications Generic Name Dose Route Start Last Admin Trade Name Freq PRN Reason Stop Dose Admin Acetaminophen 650 mg 11/18/19 12:17 11/19/19 09:01 Tylenol PO 650 mg Q4H PRN Administration Headache/Fever/Mild Pain (1-3) Amiodarone HCl 200 mg 11/19/19 09:00 11/19/19 08:58 Cordarone PO 200 mg DAILY MARRY Administration Apixaban 5 mg 11/18/19 21:00 11/19/19 08:58 Eliquis PO 5 mg BID MARRY Administration Aspirin 81 mg 11/19/19 09:00 11/19/19 08:58 Ecotrin PO 81 mg DAILY MARRY Administration Atorvastatin Calcium 40 mg 11/18/19 21:00 11/18/19 20:33 Lipitor PO 40 mg HS MARRY Administration Benzonatate 100 mg 11/18/19 21:16 11/19/19 09:01 Tessalon PO 100 mg TIDPRN PRN Administration Cough Clonidine 0.1 mg 11/18/19 12:17 11/19/19 05:48 Catapres PO 0.1 mg Q4H PRN Administration SBP Greater Than 170 Cyanocobalamin 1,000 mcg 11/19/19 09:00 11/19/19 08:58 Vitamin B-12 PO 1,000 mcg DAILY [facility] Administration Docusate Sodium 100 mg 11/18/19 21:00 11/19/19 08:59 Colace PO Not Given BID [facility] Escitalopram Oxalate 20 mg 11/19/19 09:00 11/19/19 08:59 Lexapro PO 20 mg DAILY [facility] Administration Furosemide 40 mg 11/19/19 07:30 11/19/19 08:58 Lasix PO 40 mg DAILY-AC [facility] Administration Guaifenesin 200 mg 11/18/19 12:17 11/18/19 20:34 Robitussin Sf PO 200 mg Q4H PRN Administration Cough Insulin Human Lispro 0 units 11/18/19 12:17 11/18/19 20:30 Humalog SC 2 unit .BEDTIME SLIDING SC PRN Administration Bedtime Correctional Scale Levothyroxine Sodium 50 mcg 11/19/19 06:00 11/19/19 05:48 Synthroid PO 50 mcg 0600 [facility] Administration Metoprolol Succinate 50 mg 11/19/19 09:00 11/19/19 08:59 Toprol Xl PO 50 mg DAILY [facility] Administration Polyethylene Glycol 17 gm 11/19/19 09:00 11/19/19 08:59 Miralax PO Not Given DAILY [facility] Valsartan 80 mg 11/19/19 09:00 11/19/19 08:59 Diovan PO 80 mg DAILY [facility] Administration - Exam General Appearance: NAD, awake alert Eye: PERRL, anicteric sclera ENT: normocephalic atraumatic, no oropharyngeal lesions Neck: supple, symmetric, no JVD Heart: RRR, no murmur, no gallops Respiratory: CTAB, no wheezes, no rales Gastrointestinal: soft, non-tender, non-distended, normal bowel sounds Extremities: no cyanosis, no clubbing Skin: normal turgor, no lesions Neurological: no focal deficits Musculoskeletal: normal tone, normal strength Psychiatric: normal affect, normal behavior Hosp A/P (1) Altered mental status Code(s): R41.82 - ALTERED MENTAL STATUS, UNSPECIFIED Status: Acute (2) Sinusitis Code(s): J32.9 - CHRONIC SINUSITIS, UNSPECIFIED Status: Acute (3) CAD (coronary artery disease) Code(s): I25.10 - ATHSCL HEART DISEASE OF [place] CORONARY ARTERY W/O ANG PCTRS Status: Chronic (4) DM2 (diabetes mellitus, type 2) Status: Chronic (5) Macrocytic anemia with vitamin B12 deficiency Code(s): D51.9 - VITAMIN B12 DEFICIENCY ANEMIA, UNSPECIFIED Status: Chronic (6) Obesity (BMI 30-39.9) Code(s): E66.9 - OBESITY, UNSPECIFIED Status: Chronic (7) Osteoporosis Code(s): M81.0 - AGE-RELATED OSTEOPOROSIS W/O CURRENT PATHOLOGICAL FRACTURE Status: Chronic - Plan old records reviewed/req, continue antibiotics 11/19/19- stable for discharge, see discharge gerda
--- NOTE | 2019-11-19 12:57 | DIS ---
DATE OF ADMISSION: 11/18/2019 DATE OF DISCHARGE: 11/19/2019 PRIMARY CARE PHYSICIAN: Dr. Grace Ponce. DISCHARGE DISPOSITION: Home. PRIMARY DISCHARGE DIAGNOSES: 1. Acute altered mental status, resolved. 2. Sinusitis. SECONDARY DISCHARGE DIAGNOSES: Osteoporosis, obesity with BMI 36, macrocytic anemia, diabetes type 2, coronary artery disease with history of coronary artery bypass grafting, and history of atrial flutter after coronary artery bypass grafting. Pneumonia has been ruled out. PRIMARY PROCEDURE/OPERATION: None. RADIOLOGICAL INVESTIGATION: Chest x-ray, normal. CT brain, negative. SIGNIFICANT LABORATORY DATA: WBC 5.6, hemoglobin 11.1, and platelet 191. Sodium 141, creatinine 0.76. Urinalysis normal. Blood culture negative. Urine culture negative. Influenza negative. DISCHARGE MEDICATIONS: 1. Omnicef 300 mg twice daily for 5 days. 2. Amiodarone 200 mg p.o. daily. 3. Eliquis 5 mg p.o. b.i.d. 4. Aspirin 81 mg p.o. daily. 5. Lipitor 40 mg p.o. at bedtime. 6. Vitamin B12 of 1000 mcg p.o. daily. 7. Colace 100 mg b.i.d. 8. Lexapro 20 mg daily. 9. Pepcid 20 mg at bedtime. 10. Lasix 40 mg daily. 11. Levemir 34 units subcu bedtime. 12. Levothyroxine 50 mcg daily. 13. Toprol-XL 50 mg daily. 14. Tramadol 50 mg q.6 hourly p.r.n. 15. Diovan 80 mg p.o. daily. CONTRAINDICATION: None. CODE STATUS: Full code. INPATIENT COLLECTION TECHNICIAN: None. ALLERGIES: MORPHINE. DISCHARGE PLAN: Posthospital, the patient will follow up with primary care physician in one week. HOSPITAL COURSE: A 74-year-old female, who was brought to ER by family member for altered mental status. The patient was having delirium in the form of hallucination at home. The patient's multiple family member having upper respiratory infection and the patient was started having upper respiratory infection and she was found with sinusitis based on CT brain, but without any acute intracranial process. Chest x-ray was normal. Her influenza screen was negative. Blood culture was negative. Urine culture was negative. The patient was back to normal level. While in hospital, we observed for 24 hours without any event. On the day of discharge, we treated her with Omnicef. While in hospital, she was given Rocephin. She will continue all her previous medication without any change. The patient is seen and examined at bedside today. She is hemodynamically stable. Please see my progress note from today for more detail. All new medication prescription sent to her pharmacy. Job ID: [id number]
[2019-11-19] MEDS ORDERED: Insulin Glargine 34 UNITS in Pre-Filled Syringe 1 EACH SC SCH (21:00)
[2019-11-19] MEDS ORDERED: INSULIN DETEMIR 34 UNIT SQ SCH (21:00)
== END 2019-11-19 11:25 | disposition home or self-care (01) ==
LOC: ERS 07:17 → 2SW 10:44
PROVIDERS: ADMIT Internal Medicine; ATTEND Internal Medicine
DX: R41.82 Altered mental status, unspecified (principal); J32.9 Chronic sinusitis, unspecified; F41.9 Anxiety disorder, unspecified; F32.9 Major depressive disorder, single episode, unspecified; I10 Essential (primary) hypertension; E11.9 Type 2 diabetes mellitus without complications; M81.0 Age-related osteoporosis without current pathological fracture; I48.0 Paroxysmal atrial fibrillation; E03.9 Hypothyroidism, unspecified; E78.5 Hyperlipidemia, unspecified; D51.9 Vitamin B12 deficiency anemia, unspecified; Z79.01 Long term (current) use of anticoagulants; Z79.4 Long term (current) use of insulin; Z79.82 Long term (current) use of aspirin; Z79.899 Other long term (current) drug therapy; Z88.5 Allergy status to narcotic agent; Z95.1 Presence of aortocoronary bypass graft; Z95.5 Presence of coronary angioplasty implant and graft
CPT/HCPCS: 70450; 71045; 80048; 80053; 81003; 82962; 83605; 83880; 84484; 85025 ×2; 87040; 87086; 87804 ×2; 93005; 96361; 96365; 97139; 99285; G0378 ×3; 36415; 36416; J0696; J3490

== ENCOUNTER 2019-11-29 11:38 | Emergency (ER) | payer MEDICARE ==
--- NOTE | 2019-11-29 13:26 | RAD ---
EXAM: 3 views of the facial bones HISTORY: Facial trauma COMPARISON: None FINDINGS: No displaced facial bone fractures are seen. Fluid is seen in the right maxillary sinus. Th e other visualized paranasal sinuses are well aerated. IMPRESSION: No facial fractures identified. Fluid is seen in the right maxillary sinus which can be a secondary s ign of a nondisplaced fracture. Please note that CT is much more sensitive for detection of facial fractures.
[2019-11-29] MEDS ORDERED: Lidocaine 1% w/Epinephrine 1:100K 20 ML VIAL ONE (14:43)
--- NOTE | 2019-11-29 14:46 | CT ---
EXAM: CT brain without contrast HISTORY: Slipped and fall with head trauma COMPARISON: 11/18/2019 TECHNIQUE: Multiple contiguous axial images were obtained and a CT of the brain without contrast. FINDINGS: There are scattered hypodensities in the subcortical and periventricular white matter consi stent with small vessel ischemic disease. There is no evidence of hydrocephalus, intracranial hemorrhage, or extra-axial fluid collection. There is moderate right periorbital soft tissue swelling. 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 Mucosal thickening is seen in the left maxillary sinus.. The other visualized paranasal sinuses and mastoid air cells are well aerated. IMPRESSION: No evidence of acute intracranial abnormality
--- NOTE | 2019-11-29 14:51 | CT ---
EXAM: CT face without contrast HISTORY: Facial trauma after fall COMPARISON: None TECHNIQUE: Multiple contiguous axial images were obtained and a CT of the face without contrast. Sagi ttal and coronal reformats were performed. FINDINGS: No facial fractures are identified. Moderate right periorbital facial soft tissue swelling is seen. The patient has a prosthetic right globe. The left globe is intact without focal abnormality. Mucosal thickening is seen in the left maxillary sinus. A small amount of fluid is also seen in the l eft maxillary sinus. The other visualized paranasal sinuses are well aerated without evidence of opacification. The mastoid air cells are well aerated. Visualized intracranial structures are unremarkable. IMPRESSION: No evidence of facial fracture
--- NOTE | 2019-11-29 15:03 | CT ---
Exam: CT cervical spine without contrast HISTORY: Trauma. Pain. COMPARISON: None FINDINGS: No craniocervical dissociation. Appropriate alignment of the lateral masses of C1 and C2. Intact odon toid process Appropriate alignment of the facets. Straightening of cervical lordosis may be due to patient positio n, muscle spasm or cervical collar. Current study is not tailored to assess for ligamentous injury Soft tissue neck structures: No mass, lymphadenopathy or hematoma. No prevertebral soft tissue swelli ng. Upper mediastinum and lung apices: Unremarkable Central spinal canal: Neural foramina and central spinal canal demonstrate varying degrees of central canal stenosis and foraminal narrowing on the basis of change. Limited evaluation by technique. Vertebral bodies: Cervical spine vertebral body height is maintained. No fracture. There are degenerative changes at the atlantoaxial articulation with heterotopic bone formation and e rosive changes. Correlate for arthropathy. IMPRESSION: 1. No fracture 2. Straightening of cervical lordosis which may be due to patient position, muscle spasm or cervical collar. There is concern for ligamentous injury, consider MRI
[2019-11-29] MEDS ORDERED: Bacitracin 1 PK ONE (15:52)
== END 2019-11-29 16:00 | disposition home or self-care (01) ==
LOC: ERS 11:38
DX: S01.81XA Laceration without foreign body of other part of head, initial encounter (principal); E11.9 Type 2 diabetes mellitus without complications; I10 Essential (primary) hypertension; Z79.4 Long term (current) use of insulin; Z79.01 Long term (current) use of anticoagulants; Z79.82 Long term (current) use of aspirin; Z79.899 Other long term (current) drug therapy; Z95.5 Presence of coronary angioplasty implant and graft; W01.0XXA Fall on same level from slipping, tripping and stumbling without subsequent striking against object, initial encounter; Y92.481 Parking lot as the place of occurrence of the external cause
CPT/HCPCS: 12011; 70150; 70450; 70486; 72125

== ENCOUNTER → 2020-01-05 | Day surgery (SDC) | payer MEDICARE ==
[~2020-01-05] MED LIST: PROPOFOL 0 ML ONE; PROPOFOL 20 ML ONE; PROPOFOL 200 MG/20 ML VIAL ONE
[2020-01-05 07:33] LABS: #Basophils 0.1 thou/uL (0.0-0.2); #Eosinphils 0.2 thou/uL (0.0-0.7); #Lymphocytes 1.5 thou/uL (1.20-3.40); #Monocytes 0.7 thou/uL (0.11-0.59); #Neutrophils 3.2 thou/uL (1.40-6.50); %Eosinophils 4.1 % (0.0-10.0); %Lymphocytes 25.9 % (21.0-51.0); %Monocytes 12.4 % (0.0-10.0); %Neutrophils 56.7 % (42.0-75.0); Hemoglobin 12.3 g/dL (12.0-16.0); Mean Corpuscular HGB CONC 33.1 g/dL (32.0-36.0); Mean Corpuscular Hemoglobin 29.3 pg (27.0-31.0); Mean Corpuscular Volume 88.4 fL (78.0-98.0); Mean Platelet Volume 7.9 fL (7.4-10.4); Platelet Count 224 thou/uL (130-400); RBC Distribution Width 12.5 % (11.5-14.5); Red Blood Cell (RBC) Count 4.19 mill/uL (4.20-5.40); White Blood Cell (WBC) Count 5.7 thou/uL (4.8-10.8)
[2020-01-05 07:54] LABS: Anion Gap 12 mmol/L (10-20); BUN (Urea Nitrogen) 13 mg/dL (9.8-20.1); Calc. Creatinine Clearance 0 mL/min (70-130); Calcium 10.1 mg/dL (7.8-10.44); Carbon Dioxide 29 mmol/L (23-31); Chloride 102 mmol/L (98-107); Estimated GFR-MDRD 59; Glucose 265 mg/dL (83-110); Potassium 4.2 mmol/L (3.5-5.1); Sodium 139 mmol/L (136-145)
--- NOTE | 2020-01-05 11:49 | OP ---
DATE OF PROCEDURE: 01/05/2020 PROCEDURE PERFORMED: Transesophageal echocardiogram. INDICATIONS FOR PROCEDURE: A 74-year-old woman with paroxysmal atrial fibrillation. DESCRIPTION OF PROCEDURE: The patient was taken to the PACU. The patient was sedated by Anesthesiology. Transesophageal probe was placed into the distal esophagus and stomach. Echocardiographic images were obtained. The transesophageal probe was removed. FINDINGS: 1. Normal left ventricular systolic function. 2. Biatrial enlargement. 3. Normal mitral and aortic valves. 4. Moderate mitral regurgitation. 5. Mild tricuspid regurgitation. 6. Mild aortic regurgitation. 7. There is a large leak noted through the left atrial appendage closure. 8. Atherosclerotic debris in the descending aorta. IMPRESSION: The left atrial closure has a significant leak. Job ID: [id number]
--- NOTE | 2020-01-08 08:57 | EKG ---
Test Reason : PREOP Blood Pressure : / mmHG Vent. Rate : 070 BPM Atrial Rate : 070 BPM P-R Int : 156 ms QRS Dur : 100 ms QT Int : 446 ms P-R-T Axes : 013 -20 029 degrees QTc Int : 481 ms Normal sinus rhythm Minimal voltage criteria for LVH, may be normal variant Borderline ECG Confirmed by ESTHER WILLS ([id number]) on 01/08/2020 8:57:13 AM Referred By: ELSI Confirmed By:ESTHER WILLS
== END ==
LOC: CCL 06:45
PROVIDERS: ATTEND Internal Medicine Cardiovascular Disease
PROC: B24BZZ4 Ultrasonography of Heart with Aorta, Transesophageal (ICD-10-PCS; principal; 2020-01-05)
DX: I48.0 Paroxysmal atrial fibrillation (principal); I08.3 Combined rheumatic disorders of mitral, aortic and tricuspid valves; I70.0 Atherosclerosis of aorta; Z79.01 Long term (current) use of anticoagulants; Z79.4 Long term (current) use of insulin; Z79.82 Long term (current) use of aspirin; Z79.899 Other long term (current) drug therapy; Z88.5 Allergy status to narcotic agent; Z95.0 Presence of cardiac pacemaker; Z95.1 Presence of aortocoronary bypass graft
CPT/HCPCS: 80048; 85025; 93005; 93010; 93312; J2704

== ENCOUNTER 2021-06-13 09:30 | Inpatient (IN) | payer MEDICARE ==
[2021-06-16 13:42] VITALS: BMI 30.1
[2021-06-18] MEDS ORDERED: Ondansetron PF 4 MG/2 ML Vial ONE ×2 (12:02→14:56)
[2021-06-18] MEDS ORDERED: Heparin 10,000 UNITS/ 10 ML VIAL ONE (13:43)
[2021-06-18] MEDS ORDERED: Fentanyl 100 MCG/2 ML VIAL ONE ×2 (14:38→20:30)
[2021-06-18] MEDS ORDERED: PROPOFOL 200 MG/20 ML VIAL ONE (14:56)
[2021-06-18] MEDS ORDERED: PHENYLEPHRINE-NS 100 MCG/ML 10 ML SYRINGE ONE (14:56)
[2021-06-18] MEDS ORDERED: Dexamethasone 20 MG/5 ML VIAL ONE (14:56)
[2021-06-18] MEDS ORDERED: Lidocaine 1% PF 5 ML VIAL ONE (14:56)
[2021-06-18] MEDS ORDERED: Glycopyrrolate 0.2 MG/ML 5 ML SYRINGE ONE (14:56)
[2021-06-18] MEDS ORDERED: Rocuronium Bromide 10 MG/ML (10ML VIAL) ONE (14:56)
[2021-06-18] MEDS ORDERED: HYDROcodone/Acetaminophen 5/325 mg Tablet PO PRN (15:06)
[2021-06-18] MEDS ORDERED: Protamine Sulfate 50 MG/5 ML VIAL ONE (16:15)
[2021-06-18] MEDS ORDERED: Ondansetron HCl/PF 4 MG/2 ML Vial IVP PRN (16:46)
[2021-06-18] MEDS ORDERED: Promethazine HCl 25 MG/ML VIAL ONE (17:04)
[2021-06-18] MEDS ORDERED: Insulin Regular 300 UNITS/3 ML VIAL ONE (20:42)
[2021-06-18] MEDS: Apixaban 5 MG TAB PO SCH (20:53)
[2021-06-18] MEDS ORDERED: HumaLOG 300 UNITS/3 ML VIAL SC SCH (21:00)
[2021-06-18] MEDS ORDERED: Atorvastatin Calcium 40 MG TAB PO SCH (21:00)
[2021-06-18] MEDS: HumuLIN 70/30 (300 UNITS/3 ML VIAL) SC SCH (21:12)
[2021-06-19] MEDS ORDERED: Ferrous Sulfate 325 MG TAB PO SCH (08:00)
[2021-06-19] MEDS ORDERED: HumaLOG 300 UNITS/3 ML VIAL SC SCH (08:00)
[2021-06-19] MEDS ORDERED: Insulin Regular 300 UNITS/3 ML VIAL ONE (08:04)
[2021-06-19] MEDS ORDERED: Aspirin Chewable 81 MG TAB ONE (08:33)
[2021-06-19] MEDS ORDERED: Amiodarone 200 MG TAB ONE (08:33)
[2021-06-19] MEDS ORDERED: Escitalopram Oxalate 10 mg Tablet PO SCH (09:00)
[2021-06-19] MEDS ORDERED: Valsartan 80 MG TAB PO SCH (09:00)
[2021-06-19] MEDS ORDERED: Amiodarone 200 MG TAB PO SCH (09:00)
[2021-06-19] MEDS ORDERED: Levothyroxine Sodium 50 MCG TAB PO SCH (09:00)
[2021-06-19] MEDS ORDERED: Aspirin 81 mg Enteric Coated Tablet PO SCH (09:00)
[2021-06-19] MEDS ORDERED: Magnesium Oxide 250 MG TAB PO SCH (09:00)
[2021-06-19] MEDS: Apixaban 5 MG TAB PO SCH (09:14)
[2021-06-19] MEDS: HumuLIN 70/30 (300 UNITS/3 ML VIAL) SC SCH (09:17)
[2021-06-19 09:47] VITALS: BP 148/81
== END 2021-06-19 10:50 | disposition home or self-care (01) | DRG 274 ==
LOC: SURG A 06-18 10:29 → PACU-TCU 06-18 22:59
PROVIDERS: ADMIT Internal Medicine Cardiovascular Disease; ATTEND Internal Medicine Cardiovascular Disease
PROC: 02L73DK Occlusion of Left Atrial Appendage with Intraluminal Device, Percutaneous Approach (ICD-10-PCS; principal; 2021-06-18)
PROC: B24BZZ4 Ultrasonography of Heart with Aorta, Transesophageal (ICD-10-PCS; 2021-06-18)
DX: I48.0 Paroxysmal atrial fibrillation (principal); R29.6 Repeated falls; D64.9 Anemia, unspecified; H54.40 Blindness, one eye, unspecified eye; Z88.5 Allergy status to narcotic agent; Z86.73 Personal history of transient ischemic attack (TIA), and cerebral infarction without residual deficits; Z90.49 Acquired absence of other specified parts of digestive tract; Z95.5 Presence of coronary angioplasty implant and graft; Z95.1 Presence of aortocoronary bypass graft; Z90.710 Acquired absence of both cervix and uterus
CPT/HCPCS: 36416; 36430; 85347; 86850; 86900; 86901; 93355; C1759; C1817; J1100; J1644; J1815; J2405; J2550; J2704; J2720; J3010

== ENCOUNTER 2021-07-28 10:37 | Outpatient (CLI) | payer MEDICARE ==
[2021-07-28 12:56] LABS: Hemoglobin 11.7 g/dL (12.0-15.5); Red Blood Cell (RBC) Count 3.95 10x6/uL (3.90-5.03); White Blood Cell (WBC) Count 5.7 10x3/uL (3.5-10.5)
[2021-07-28 12:57] LABS: Mean Corpuscular HGB CONC 32.9 g/dL (32.0-36.0); Mean Corpuscular Hemoglobin 29.6 pg (27.0-33.0); Mean Corpuscular Volume 90.1 fl (81.6-98.3); Mean Platelet Volume 10.5 fl (7.4-10.4); Platelet Count 247 10x3/uL (150-450); RBC Distribution Width 12.5 % (11.5-14.5)
[2021-07-28 13:05] LABS: INR-International Normal Ratio 1.1; Prothrombin Time 11.8 sec (9.5-12.1)
[2021-07-28 13:14] LABS: Anion Gap 14 mmol/L (10-20); BUN (Urea Nitrogen) 16 mg/dL (9.8-20.1); Calc. Creatinine Clearance 0 mL/min (70-130); Calcium 10.4 mg/dL (7.8-10.44); Carbon Dioxide 26 mmol/L (23-31); Chloride 106 mmol/L (98-107); Glucose 85 mg/dL (83-110); Potassium 4.3 mmol/L (3.5-5.1); Sodium 142 mmol/L (136-145)
[2021-07-28 22:21] LABS: SARS-CoV-2 PCR by NAA Not Detected (NotDetected)
== END 2021-07-28 10:38 | disposition home or self-care (01) ==
LOC: LABBT 10:37
PROVIDERS: ATTEND Internal Medicine Cardiovascular Disease
DX: Z01.812 Encounter for preprocedural laboratory examination (principal); I48.19 Other persistent atrial fibrillation; Z20.822 Contact with and (suspected) exposure to COVID-19
CPT/HCPCS: 80048; 85027; 85610; U0003; U0005

== ENCOUNTER 2021-07-31 06:22 | Day surgery (SDC) | payer MEDICARE ==
[2021-07-29 15:39] VITALS: BMI 30.1
[2021-07-31] MEDS ORDERED: Propofol 500 MG/50 ML VIAL ONE (06:31)
[2021-07-31] MEDS ORDERED: Ondansetron PF 4 MG/2 ML Vial ONE (06:59)
== END 2021-07-31 08:59 | disposition home or self-care (01) ==
LOC: CCL 06:22
PROVIDERS: ATTEND Internal Medicine Cardiovascular Disease
PROC: 5A2204Z Restoration of Cardiac Rhythm, Single (ICD-10-PCS; principal; 2021-07-31)
PROC: B24BZZ4 Ultrasonography of Heart with Aorta, Transesophageal (ICD-10-PCS; 2021-07-31)
DX: I48.19 Other persistent atrial fibrillation (principal); I48.0 Paroxysmal atrial fibrillation; I48.3 Typical atrial flutter; I25.10 Atherosclerotic heart disease of native coronary artery without angina pectoris; I10 Essential (primary) hypertension; K21.9 Gastro-esophageal reflux disease without esophagitis; D64.9 Anemia, unspecified; Z79.4 Long term (current) use of insulin; Z79.899 Other long term (current) drug therapy; Z88.5 Allergy status to narcotic agent; Z91.81 History of falling; Z95.1 Presence of aortocoronary bypass graft
CPT/HCPCS: 92960; 93005; 93010; 93312; J2405; J2704

== ENCOUNTER 2021-10-23 16:30 | Emergency (ER) | payer MEDICARE | END 2021-10-23 19:05 | disposition home or self-care (01) | LOC: ERS 16:30 | DX: S40.012A Contusion of left shoulder, initial encounter (principal); R91.1 Solitary pulmonary nodule; I10 Essential (primary) hypertension; E11.9 Type 2 diabetes mellitus without complications; Z79.4 Long term (current) use of insulin; W18.30XA Fall on same level, unspecified, initial encounter ==

== ENCOUNTER 2021-11-05 11:16 | Outpatient (CLI) | payer MEDICARE | END 2021-11-05 11:17 | disposition home or self-care (01) | LOC: CT 11:16 | PROVIDERS: ATTEND Student in an Organized Health Care Education/Training Program | DX: R91.1 Solitary pulmonary nodule (principal); M48.04 Spinal stenosis, thoracic region; I25.84 Coronary atherosclerosis due to calcified coronary lesion; M48.8X4 Other specified spondylopathies, thoracic region | CPT/HCPCS: 71250 ==

== ENCOUNTER 2022-02-18 16:07 | Emergency (ER) | payer MEDICARE, OTHER ==
[2022-02-18 17:11] LABS: #Eosinphils 0.1 thou/uL (0.0-0.7); #Lymphocytes 1.5 thou/uL (1.20-3.40); #Monocytes 0.4 thou/uL (0.11-0.59); #Neutrophils 3.1 thou/uL (1.40-6.50); %Basophils 0.8 % (0.0-1.0); %Eosinophils 2.3 % (0.0-10.0); %Lymphocytes 28.2 % (21.0-51.0); %Monocytes 8.3 % (0.0-10.0); %Neutrophils 60.5 % (42.0-75.0); Hemoglobin 11.9 g/dL (12.0-16.0); Mean Corpuscular HGB CONC 31.9 g/dL (32.0-36.0); Mean Corpuscular Hemoglobin 29.2 pg (27.0-31.0); Mean Corpuscular Volume 91.3 fL (78.0-98.0); Mean Platelet Volume 7.2 fL (7.4-10.4); Platelet Count 217 thou/uL (130-400); RBC Distribution Width 11.9 % (11.5-14.5); Red Blood Cell (RBC) Count 4.09 mill/uL (4.20-5.40); White Blood Cell (WBC) Count 5.1 thou/uL (4.8-10.8)
[2022-02-18 17:32] LABS: Phosphorus 3.3 mg/dL (2.3-4.7)
[2022-02-18 17:34] LABS: ALT (SGPT) 9 U/L (8-55); AST (SGOT) 14 U/L (5-34); Albumin 3.7 g/dL (3.4-4.8); Alkaline Phosphatase 170 U/L (40-110); Anion Gap 13 mmol/L (10-20); BUN (Urea Nitrogen) 20 mg/dL (9.8-20.1); Bilirubin, Total 1.4 mg/dL (0.2-1.2); Calc. Creatinine Clearance 0 mL/min (70-130); Calcium 9.6 mg/dL (7.8-10.44); Carbon Dioxide 29 mmol/L (23-31); Chloride 97 mmol/L (98-107); Globulin 2.7 g/dL (2.4-3.5); Glucose 516 mg/dL (83-110); Magnesium 1.8 mg/dL (1.6-2.6); Potassium 4.6 mmol/L (3.5-5.1); Protein, Total 6.4 g/dL (5.8-8.1); Sodium 134 mmol/L (136-145)
[2022-02-18] MEDS ORDERED: HumaLOG 300 UNITS/3 ML VIAL ONE (18:07)
== END 2022-02-18 18:10 | disposition home or self-care (01) ==
LOC: ERS 16:07
DX: S09.90XA Unspecified injury of head, initial encounter (principal); S80.12XA Contusion of left lower leg, initial encounter; E11.65 Type 2 diabetes mellitus with hyperglycemia; I48.91 Unspecified atrial fibrillation; I10 Essential (primary) hypertension; M81.0 Age-related osteoporosis without current pathological fracture; W01.10XA Fall on same level from slipping, tripping and stumbling with subsequent striking against unspecified object, initial encounter; Z79.4 Long term (current) use of insulin; Z95.5 Presence of coronary angioplasty implant and graft; Z95.1 Presence of aortocoronary bypass graft
CPT/HCPCS: 36415; 36416; 70450; 72125; 80053; 82010; 83735; 84100; 85025; 93005; J1815

== ENCOUNTER 2023-03-24 20:56 | Emergency (ER) | payer OTHER, MEDICARE ==
[2023-03-24] MEDS ORDERED: Bacitracin 1 PK ONE (23:28)
== END 2023-03-25 00:18 | disposition home or self-care (01) ==
LOC: ERS 20:56
DX: S62.614A Displaced fracture of proximal phalanx of right ring finger, initial encounter for closed fracture (principal); S80.02XA Contusion of left knee, initial encounter; S00.81XA Abrasion of other part of head, initial encounter; S60.414A Abrasion of right ring finger, initial encounter; E11.9 Type 2 diabetes mellitus without complications; I10 Essential (primary) hypertension; Z79.4 Long term (current) use of insulin; Z79.899 Other long term (current) drug therapy; W01.10XA Fall on same level from slipping, tripping and stumbling with subsequent striking against unspecified object, initial encounter
CPT/HCPCS: 70450; 93005

== ENCOUNTER 2023-06-13 18:00 | Inpatient (IN) | payer MEDICARE ==
[2023-06-13 19:21] LABS: ALT (SGPT) 17 U/L (8-55); AST (SGOT) 19 U/L (5-34); Albumin 3.9 g/dL (3.4-4.8); Alkaline Phosphatase 109 U/L (40-110); Anion Gap 11 mmol/L (10-20); BUN (Urea Nitrogen) 24 mg/dL (9.8-20.1); Bilirubin, Total 1.8 mg/dL (0.2-1.2); Calc. Creatinine Clearance 0 mL/min (70-130); Calcium 10.1 mg/dL (7.8-10.44); Carbon Dioxide 23 mmol/L (23-31); Chloride 104 mmol/L (98-107); Estimated GFR 44; Lipase 20 U/L (8-78); Potassium 4.4 mmol/L (3.5-5.1); Protein, Total 6.9 g/dL (5.8-8.1); Sodium 134 mmol/L (136-145)
[2023-06-13 19:33] LABS: Glucose 436 mg/dL (83-110)
[2023-06-13 19:41] LABS: CKMB 2.8 ng/mL (0-6.6)
[2023-06-13 19:48] LABS: #Eosinphils 0.1 thou/uL (0.0-0.7); #Monocytes 0.8 thou/uL (0.11-0.59); #Neutrophils 5.4 thou/uL (1.40-6.50); %Basophils 0.5 % (0.0-1.0); %Eosinophils 1.6 % (0.0-10.0); %Lymphocytes 23.5 % (21.0-51.0); %Monocytes 9.4 % (0.0-10.0); %Neutrophils 64.8 % (42.0-75.0); Hemoglobin 11.7 g/dL (12.0-16.0); Mean Corpuscular HGB CONC 31.8 g/dL (32.0-36.0); Mean Corpuscular Hemoglobin 28.9 pg (27.0-31.0); Mean Corpuscular Volume 90.9 fl (78.0-98.0); Mean Platelet Volume 10.6 fL (7.4-10.4); Platelet Count 238 10x3/uL (130-400); RBC Distribution Width 13.2 % (11.5-14.5); Red Blood Cell (RBC) Count 4.05 mill/uL (4.20-5.40); White Blood Cell (WBC) Count 8.3 10x3/uL (4.8-10.8)
[2023-06-13 19:51] LABS: Actual Bicarbonate (HCO3v) 20.8 mEq/L (22-28); Analyzer IN Cardio ER; Calcium, Ionized (venous) 1.19 mmol/L (1.16-1.32); Chloride (VBG) 104 mmol/L (98-106); Hematocrit-VBG 39 % (36.0-47.0); Hemoglobin (Hb) 13.2 g/dL (11.7-16.1); Potassium (VBG) 4.34 mmol/L (3.70-5.30); Sodium 138.3 mmol/L (133-146); pH (venous) 7.457 (7.32-7.43)
[2023-06-13] MEDS ORDERED: Nitroglycerin 2% Ointment 1 INCH/1 GM Packet ONE (20:12)
[2023-06-13] MEDS ORDERED: Ondansetron ODT 4 MG TAB PO PRN (22:01)
[2023-06-13] MEDS ORDERED: Ondansetron PF 4 MG/2 ML Vial IVP PRN (22:01)
[2023-06-13] MEDS ORDERED: Glucagon 1 MG/ML KIT IM PRN (22:04)
[2023-06-13] MEDS ORDERED: Dextrose 50% Abboject 50 ML SYRINGE SLOW IVP PRN (22:04)
[2023-06-13] MEDS ORDERED: Dextrose 5% in Water 1,000 ML IV PRN (22:04)
[2023-06-13] MEDS ORDERED: Insulin Regular 300 UNITS/3 ML VIAL IVP SCH (22:15)
[2023-06-13 22:53] LABS: Troponin I 0.027 ng/mL (< 0.028)
[2023-06-14 01:58] LABS: Troponin I 0.046 ng/mL (< 0.028)
[2023-06-14 05:06] VITALS: BMI 32.0
[2023-06-14] MEDS: Furosemide 20 MG/2 ML VIAL SLOW IVP SCH ×2 (05:07→13:15)
[2023-06-14] MEDS: Levothyroxine Sodium 50 MCG TAB PO SCH (05:07)
[2023-06-14 05:34] LABS: #Eosinphils 0.2 thou/uL (0.0-0.7); #Monocytes 0.7 thou/uL (0.11-0.59); #Neutrophils 4.4 thou/uL (1.40-6.50); %Basophils 0.6 % (0.0-1.0); %Eosinophils 2.5 % (0.0-10.0); %Monocytes 9.1 % (0.0-10.0); %Neutrophils 60.7 % (42.0-75.0); Hemoglobin 11.4 g/dL (12.0-16.0); Mean Corpuscular HGB CONC 31.3 g/dL (32.0-36.0); Mean Corpuscular Hemoglobin 28.5 pg (27.0-31.0); Mean Platelet Volume 10.4 fL (7.4-10.4); Platelet Count 240 10x3/uL (130-400); RBC Distribution Width 13.2 % (11.5-14.5); White Blood Cell (WBC) Count 7.2 10x3/uL (4.8-10.8)
[2023-06-14] MEDS: HumaLOG 300 UNITS/3 ML VIAL SC PRN ×3 (05:38→20:22)
[2023-06-14 05:55] LABS: Anion Gap 11 mmol/L (10-20); BUN (Urea Nitrogen) 21 mg/dL (9.8-20.1); Calc. Creatinine Clearance 50 mL/min (70-130); Calcium 9.8 mg/dL (7.8-10.44); Carbon Dioxide 25 mmol/L (23-31); Chloride 105 mmol/L (98-107); Estimated GFR 52; Glucose 241 mg/dL (83-110); Potassium 3.8 mmol/L (3.5-5.1); Sodium 137 mmol/L (136-145)
[2023-06-14] MEDS ORDERED: Vit A,C & E/Lutein/Minerals Tablet PO SCH (09:30)
[2023-06-14] MEDS: Famotidine 20 MG TAB PO SCH ×2 (10:18→20:20)
[2023-06-14] MEDS: Aspirin 81 mg Enteric Coated Tablet PO SCH (10:18)
[2023-06-14] MEDS: Escitalopram Oxalate 20 mg Tablet PO SCH (10:18)
[2023-06-14] MEDS: Valsartan 80 MG TAB PO SCH (10:18)
[2023-06-14] MEDS: Amiodarone 200 MG TAB PO SCH (10:18)
[2023-06-14] MEDS: Famotidine/PF 20 mg/2ml Vial SLOW IVP SCH ×2 (10:19→20:21)
[2023-06-14] MEDS: HumuLIN 70/30 100 Unit/ ml Vial SC SCH (13:16)
[2023-06-14] MEDS: Atorvastatin Calcium 40 MG TAB PO SCH (20:20)
[2023-06-15] MEDS: HumuLIN 70/30 100 Unit/ ml Vial SC SCH ×3 (00:44→22:16)
[2023-06-15] MEDS: Acetaminophen 325 MG TAB PO PRN ×2 (00:49→22:35)
[2023-06-15] MEDS: Furosemide 20 MG/2 ML VIAL SLOW IVP SCH ×2 (05:13→14:10)
[2023-06-15] MEDS: Levothyroxine Sodium 50 MCG TAB PO SCH (05:13)
[2023-06-15] MEDS: Amiodarone 200 MG TAB PO SCH (09:17)
[2023-06-15] MEDS: Famotidine 20 MG TAB PO SCH (09:17)
[2023-06-15] MEDS: Valsartan 80 MG TAB PO SCH (09:17)
[2023-06-15] MEDS: Aspirin 81 mg Enteric Coated Tablet PO SCH (09:17)
[2023-06-15] MEDS: Vit A,C & E/Lutein/Minerals Tablet PO SCH (09:17)
[2023-06-15] MEDS: Escitalopram Oxalate 20 mg Tablet PO SCH (09:18)
[2023-06-15] MEDS: Famotidine/PF 20 mg/2ml Vial SLOW IVP SCH (09:18)
[2023-06-15] MEDS ORDERED: Iopamidol 370 76% 100 ML VIAL ONE (10:32)
[2023-06-15] MEDS: HumaLOG 300 UNITS/3 ML VIAL SC PRN ×2 (12:41→22:17)
[2023-06-15] MEDS ORDERED: hydrALAZINE 20 MG/ML VIAL SLOW IVP PRN (18:37)
[2023-06-15] MEDS: Atorvastatin Calcium 40 MG TAB PO SCH (21:43)
[2023-06-16] MEDS: Levothyroxine Sodium 50 MCG TAB PO SCH (05:38)
[2023-06-16] MEDS: Furosemide 20 MG/2 ML VIAL SLOW IVP SCH (05:38)
[2023-06-16] MEDS: HumuLIN 70/30 100 Unit/ ml Vial SC SCH ×2 (08:35→21:27)
[2023-06-16] MEDS: Escitalopram Oxalate 20 mg Tablet PO SCH (08:36)
[2023-06-16] MEDS: Vit A,C & E/Lutein/Minerals Tablet PO SCH (08:37)
[2023-06-16] MEDS: Aspirin 81 mg Enteric Coated Tablet PO SCH (08:37)
[2023-06-16] MEDS: Valsartan 80 MG TAB PO SCH (08:37)
[2023-06-16] MEDS: Famotidine 20 MG TAB PO SCH (08:37)
[2023-06-16] MEDS ORDERED: Furosemide 40 MG/4 ML VIAL SLOW IVP SCH ×2 (09:00→18:00)
[2023-06-16] MEDS ORDERED: Cefpodoxime 200 MG TAB PO SCH (09:00)
[2023-06-16] MEDS ORDERED: Empagliflozin 10 MG TAB PO SCH (09:45)
[2023-06-16] MEDS: Cefdinir 300 MG CAP PO SCH ×2 (09:56→20:11)
[2023-06-16 10:02] LABS: #Eosinphils 0.2 thou/uL (0.0-0.7); #Monocytes 0.6 thou/uL (0.11-0.59); %Basophils 0.3 % (0.0-1.0); %Eosinophils 3.1 % (0.0-10.0); %Lymphocytes 27.9 % (21.0-51.0); %Monocytes 8.6 % (0.0-10.0); %Neutrophils 59.8 % (42.0-75.0); Hemoglobin 11.9 g/dL (12.0-16.0); Mean Corpuscular HGB CONC 31.9 g/dL (32.0-36.0); Mean Corpuscular Hemoglobin 29.2 pg (27.0-31.0); Mean Corpuscular Volume 91.6 fl (78.0-98.0); Mean Platelet Volume 10.4 fL (7.4-10.4); Platelet Count 238 10x3/uL (130-400); RBC Distribution Width 13.4 % (11.5-14.5); Red Blood Cell (RBC) Count 4.07 mill/uL (4.20-5.40); White Blood Cell (WBC) Count 6.7 10x3/uL (4.8-10.8)
[2023-06-16 10:29] LABS: Anion Gap 15 mmol/L (10-20); BUN (Urea Nitrogen) 27 mg/dL (9.8-20.1); Calc. Creatinine Clearance 47 mL/min (70-130); Calcium 9.5 mg/dL (7.8-10.44); Carbon Dioxide 28 mmol/L (23-31); Chloride 102 mmol/L (98-107); Estimated GFR 50; Glucose 206 mg/dL (83-110); Potassium 3.9 mmol/L (3.5-5.1); Sodium 141 mmol/L (136-145)
[2023-06-16] MEDS: HumaLOG 300 UNITS/3 ML VIAL SC PRN (12:07)
[2023-06-16] MEDS: Atorvastatin Calcium 40 MG TAB PO SCH (20:10)
[2023-06-16] MEDS: Acetaminophen 325 MG TAB PO PRN (20:11)
[2023-06-17] MEDS: Levothyroxine Sodium 50 MCG TAB PO SCH (05:59)
[2023-06-17] MEDS: Furosemide 40 MG/4 ML VIAL SLOW IVP SCH ×2 (06:00→15:20)
[2023-06-17 08:09] LABS: Anion Gap 16 mmol/L (10-20); BUN (Urea Nitrogen) 31 mg/dL (9.8-20.1); Calc. Creatinine Clearance 51 mL/min (70-130); Calcium 9.8 mg/dL (7.8-10.44); Carbon Dioxide 30 mmol/L (23-31); Chloride 101 mmol/L (98-107); Estimated GFR 55; Glucose 85 mg/dL (83-110); Potassium 3.5 mmol/L (3.5-5.1); Sodium 143 mmol/L (136-145)
[2023-06-17] MEDS: Escitalopram Oxalate 20 mg Tablet PO SCH (11:30)
[2023-06-17] MEDS: Famotidine 20 MG TAB PO SCH (11:30)
[2023-06-17] MEDS: Aspirin 81 mg Enteric Coated Tablet PO SCH (11:30)
[2023-06-17] MEDS: Valsartan 80 MG TAB PO SCH (11:31)
[2023-06-17] MEDS: Cefdinir 300 MG CAP PO SCH ×2 (11:31→20:53)
[2023-06-17] MEDS: Vit A,C & E/Lutein/Minerals Tablet PO SCH (11:31)
[2023-06-17] MEDS: Empagliflozin 10 MG TAB PO SCH (11:31)
[2023-06-17] MEDS: HumuLIN 70/30 100 Unit/ ml Vial SC SCH ×2 (11:36→20:53)
[2023-06-17] MEDS: Acetaminophen 325 MG TAB PO PRN (18:11)
[2023-06-17] MEDS: HumaLOG 300 UNITS/3 ML VIAL SC PRN ×2 (18:11→20:53)
[2023-06-17] MEDS: Atorvastatin Calcium 40 MG TAB PO SCH (20:52)
[2023-06-18 05:32] LABS: Anion Gap 14 mmol/L (10-20); BUN (Urea Nitrogen) 39 mg/dL (9.8-20.1); Calc. Creatinine Clearance 44 mL/min (70-130); Calcium 9.9 mg/dL (7.8-10.44); Carbon Dioxide 32 mmol/L (23-31); Chloride 100 mmol/L (98-107); Estimated GFR 46; Glucose 72 mg/dL (83-110); Potassium 3.5 mmol/L (3.5-5.1); Sodium 142 mmol/L (136-145)
[2023-06-18] MEDS: Levothyroxine Sodium 50 MCG TAB PO SCH (06:04)
[2023-06-18] MEDS: Furosemide 40 MG/4 ML VIAL SLOW IVP SCH (06:04)
[2023-06-18] MEDS ORDERED: Potassium Chloride 20 MEQ TAB PO SCH (09:15)
[2023-06-18] MEDS: Cefdinir 300 MG CAP PO SCH (09:33)
[2023-06-18] MEDS: Valsartan 80 MG TAB PO SCH (09:33)
[2023-06-18] MEDS: Vit A,C & E/Lutein/Minerals Tablet PO SCH (09:33)
[2023-06-18] MEDS: Escitalopram Oxalate 20 mg Tablet PO SCH (09:33)
[2023-06-18] MEDS: Famotidine 20 MG TAB PO SCH (09:34)
[2023-06-18] MEDS: Aspirin 81 mg Enteric Coated Tablet PO SCH (09:34)
[2023-06-18] MEDS: Acetaminophen 325 MG TAB PO PRN (09:34)
[2023-06-18] MEDS: Empagliflozin 10 MG TAB PO SCH (09:34)
[2023-06-18] MEDS: HumuLIN 70/30 100 Unit/ ml Vial SC SCH (09:38)
[2023-06-18] MEDS: HumaLOG 300 UNITS/3 ML VIAL SC PRN (12:54)
[2023-06-18] MEDS ORDERED: Furosemide 20 MG TAB PO SCH (14:00)
[2023-06-18] MEDS ORDERED: Furosemide 40 MG TAB PO SCH (14:00)
[2023-06-18 16:40] VITALS: BP 132/64; TEMP 97.8
== END 2023-06-18 19:20 | disposition home or self-care (01) | DRG 280 ==
LOC: ERS 18:00 → 2NO 21:54
PROVIDERS: ADMIT Student in an Organized Health Care Education/Training Program; ATTEND Hospitalist
PROC: 4A043R1 Measurement of Venous Saturation, Peripheral, Percutaneous Approach (ICD-10-PCS; principal; 2023-06-13)
DX: I21.4 Non-ST elevation (NSTEMI) myocardial infarction (principal); I50.23 Acute on chronic systolic (congestive) heart failure; I13.0 Hypertensive heart and chronic kidney disease with heart failure and stage 1 through stage 4 chronic kidney disease, or unspecified chronic kidney disease; I42.8 Other cardiomyopathies; I48.92 Unspecified atrial flutter; N18.9 Chronic kidney disease, unspecified; I25.10 Atherosclerotic heart disease of native coronary artery without angina pectoris; I44.7 Left bundle-branch block, unspecified; I48.0 Paroxysmal atrial fibrillation; K21.9 Gastro-esophageal reflux disease without esophagitis; D63.1 Anemia in chronic kidney disease; I49.5 Sick sinus syndrome; Z88.5 Allergy status to narcotic agent; Z79.82 Long term (current) use of aspirin; Z79.899 Other long term (current) drug therapy; Z79.4 Long term (current) use of insulin; Z88.8 Allergy status to other drugs, medicaments and biological substances; Z95.0 Presence of cardiac pacemaker; Z90.49 Acquired absence of other specified parts of digestive tract; Z90.710 Acquired absence of both cervix and uterus; Z95.1 Presence of aortocoronary bypass graft
CPT/HCPCS: 36415; 36416; 71045; 71275; 80048; 80053; 82010; 82553; 82805; 83690; 83880; 84145; 84484; 85025; 85379; 93005; 93306; 96360; 96372; J1650; J1815; J1940; J2405; Q0162; Q9967; S0028

== ENCOUNTER 2023-09-07 05:49 | Day surgery (SDC) | payer MEDICARE ==
[2023-08-31 11:17] VITALS: BMI 31.5
[2023-08-31 12:43] LABS: Hematocrit 38.4 % (34.9-44.5); Hemoglobin 12.3 g/dL (12.0-15.5); Mean Corpuscular Hemoglobin 28.1 pg (27.0-33.0); Mean Corpuscular Volume 87.7 fl (81.6-98.3); Mean Platelet Volume 9.5 fl (7.4-10.4); Platelet Count 269 10x3/uL (150-450); RBC Distribution Width 13.5 % (11.5-14.5); Red Blood Cell (RBC) Count 4.38 10x6/uL (3.90-5.03); White Blood Cell (WBC) Count 6.5 10x3/uL (3.5-10.5)
[2023-08-31 13:06] LABS: INR-International Normal Ratio 1.1; Prothrombin Time 11.5 sec (9.5-12.1)
[2023-08-31 13:15] LABS: Anion Gap 13 mmol/L (10-20); BUN (Urea Nitrogen) 27 mg/dL (9.8-20.1); Calc. Creatinine Clearance 51 mL/min (70-130); Calcium 9.7 mg/dL (7.8-10.44); Carbon Dioxide 25 mmol/L (23-31); Chloride 106 mmol/L (98-107); Estimated GFR 54; Glucose 180 mg/dL (83-110); Potassium 4.1 mmol/L (3.5-5.1); Sodium 140 mmol/L (136-145)
[2023-09-07] MEDS ORDERED: Heparin 10,000 UNITS/ 10 ML VIAL ONE (06:54)
[2023-09-07] MEDS ORDERED: Lidocaine 1% (PF) 30 ML VIAL ONE (06:55)
[2023-09-07] MEDS ORDERED: CEFAZOLIN 2 GM VIAL ONE (07:00)
[2023-09-07] MEDS ORDERED: Propofol 1,000 MG/100 ML VIAL IV ONE (07:28)
[2023-09-07] MEDS ORDERED: Midazolam HCl 2 mg/2 ml Vial ONE (07:29)
[2023-09-07] MEDS ORDERED: Famotidine/PF 20 mg/2ml Vial ONE (07:30)
[2023-09-07] MEDS ORDERED: Ondansetron PF 4 MG/2 ML Vial ONE (07:55)
[2023-09-07] MEDS ORDERED: Promethazine HCl 25 MG/ML VIAL IM PRN (08:20)
[2023-09-07] MEDS ORDERED: Ondansetron HCl/PF 4 MG/2 ML Vial IVP PRN (08:20)
== END 2023-09-07 11:30 | disposition home or self-care (01) ==
LOC: SDC 05:49
PROVIDERS: ATTEND Internal Medicine Cardiovascular Disease
PROC: 02583ZZ Destruction of Conduction Mechanism, Percutaneous Approach (ICD-10-PCS; principal; 2023-09-07)
DX: I48.21 Permanent atrial fibrillation (principal); I11.0 Hypertensive heart disease with heart failure; I50.20 Unspecified systolic (congestive) heart failure; I25.10 Atherosclerotic heart disease of native coronary artery without angina pectoris; I48.3 Typical atrial flutter; I49.5 Sick sinus syndrome; K21.9 Gastro-esophageal reflux disease without esophagitis; Z90.710 Acquired absence of both cervix and uterus; Z86.73 Personal history of transient ischemic attack (TIA), and cerebral infarction without residual deficits; Z90.49 Acquired absence of other specified parts of digestive tract; Z95.1 Presence of aortocoronary bypass graft; Z79.82 Long term (current) use of aspirin; Z79.899 Other long term (current) drug therapy; Z95.0 Presence of cardiac pacemaker; Z88.5 Allergy status to narcotic agent
CPT/HCPCS: 80048; 82962; 85027; 85610; 93005; 93613; 93650; C1760; C1894 ×2; C2630; 36416; 93010; J1644; J2001; J2250; J2405; J2704; S0028

== ENCOUNTER 2025-10-16 13:14 | Inpatient (IN) | payer MEDICARE ==
[2025-10-16 14:10] LABS: #Basophils Less than 0.03 10x3/uL (0.0-0.2); #Eosinophils 0.08 10x3/uL (0.0-0.7); #Monocytes 0.76 10x3/uL (0.11-0.59); #Neutrophils 7.54 10x3/uL (1.40-6.50); %Basophils 0.2 % (0.0-1.0); %Eosinophils 0.8 % (0.0-10.0); %Lymphocytes 16.3 % (21.0-51.0); %Monocytes 7.5 % (0.0-10.0); %Neutrophils 74.9 % (42.0-75.0); Hematocrit 35.0 % (36.0-47.0); Hemoglobin 12.0 g/dL (12.0-16.0); Mean Corpuscular Hemoglobin 31.0 pg (27.0-31.0); Mean Corpuscular Volume 90.4 fL (78.0-98.0); Platelet Count 268 10x3/uL (130-400); Red Blood Cell (RBC) Count 3.87 mill/uL (4.20-5.40); White Blood Cell (WBC) Count 10.07 10x3/uL (4.8-10.8)
[2025-10-16 14:26] LABS: ALT (SGPT) 7 U/L (Less than 34); AST (SGOT) 12 U/L (11-34); Albumin 3.1 g/dL (3.1-4.5); Alkaline Phosphatase 168 U/L (40-110); Anion Gap 15 mmol/L (10-20); BUN (Urea Nitrogen) 29 mg/dL (9.8-20.1); Bilirubin, Total 2.4 mg/dL (0.3-1.2); Calc. Creatinine Clearance 0 mL/min (70-130); Calcium 9.9 mg/dL (7.8-10.44); Carbon Dioxide 23 mmol/L (23-31); Chloride 102 mmol/L (98-107); Globulin 2.7 g/dL (2.4-3.5); Glucose 347 mg/dL (83-110); Lipase 11 U/L (8-78); Magnesium 1.7 mg/dL (1.6-2.6); Potassium 3.3 mmol/L (3.5-5.1); Sodium 137 mmol/L (136-145)
[2025-10-16 15:03] LABS: Actual Bicarbonate (HCO3v) 22.2 mEq/L (22-28); Base Excess -2.8 mEq/L (-2.0 to +3.0); Calcium, Ionized (venous) 1.26 mmol/L (1.16-1.32); Chloride (VBG) 101 mmol/L (98-106); Hematocrit-VBG 38 % (36.0-47.0); Hemoglobin (Hb) 13.0 g/dL (11.7-16.1); Potassium (VBG) 3.44 mmol/L (3.70-5.30); Sodium 135 mmol/L (133-146)
[2025-10-16 15:20] LABS: Osmolality, Serum 303 mOsm/kg (280-301)
[2025-10-16] MEDS ORDERED: Potassium Phosphate 30 MMOL in Sodium Chloride 0.9% 250 ML 250 ML IVPB SCH (16:00)
[2025-10-16] MEDS ORDERED: Glucagon 1 MG/ML KIT IM PRN (17:58)
[2025-10-16] MEDS ORDERED: Dextrose 50% Abboject 50 ML SYRINGE SLOW IVP PRN (17:58)
[2025-10-16] MEDS ORDERED: Ketorolac Tromethamine 30 MG (1 mL) VIAL IVP PRN (17:58)
[2025-10-16 18:50] VITALS: BMI 24.4
[2025-10-16] MEDS: Magnesium Oxide 400 MG TAB PO SCH (18:58)
[2025-10-16] MEDS: Insulin Glargine 30 UNITS/0.3 ML VIAL SC SCH (20:20)
[2025-10-16] MEDS: Ondansetron PF 4 MG/2 ML Vial IVP PRN (23:46)
[2025-10-17 05:29] LABS: #Basophils Less than 0.03 10x3/uL (0.0-0.2); #Eosinophils 0.07 10x3/uL (0.0-0.7); #Monocytes 0.55 10x3/uL (0.11-0.59); #Neutrophils 5.21 10x3/uL (1.40-6.50); %Basophils 0.1 % (0.0-1.0); %Eosinophils 1.0 % (0.0-10.0); %Lymphocytes 16.9 % (21.0-51.0); %Monocytes 7.8 % (0.0-10.0); %Neutrophils 73.9 % (42.0-75.0); Hematocrit 37.2 % (36.0-47.0); Hemoglobin 12.6 g/dL (12.0-16.0); Mean Corpuscular Hemoglobin 30.5 pg (27.0-31.0); Mean Corpuscular Volume 90.1 fL (78.0-98.0); Platelet Count 264 10x3/uL (130-400); Red Blood Cell (RBC) Count 4.13 mill/uL (4.20-5.40); White Blood Cell (WBC) Count 7.05 10x3/uL (4.8-10.8)
[2025-10-17 05:42] LABS: Anion Gap 12 mmol/L (10-20); BUN (Urea Nitrogen) 29 mg/dL (9.8-20.1); Calc. Creatinine Clearance 35 mL/min (70-130); Calcium 10.1 mg/dL (7.8-10.44); Carbon Dioxide 23 mmol/L (23-31); Chloride 102 mmol/L (98-107); Glucose 317 mg/dL (83-110); Potassium 3.4 mmol/L (3.5-5.1); Sodium 134 mmol/L (136-145)
[2025-10-17] MEDS: Enoxaparin 40 MG (0.4 mL) SYRINGE SC SCH (08:32)
[2025-10-17] MEDS: Furosemide 40 MG TAB PO SCH (08:32)
[2025-10-17] MEDS: Metoprolol Succinate XL 50 MG ER.TAB PO SCH (08:32)
[2025-10-17] MEDS: Aspirin 81 mg Enteric Coated Tablet PO SCH (08:32)
[2025-10-17] MEDS: Acetaminophen 500 MG TAB PO PRN (10:32)
[2025-10-17 12:32] LABS: Glucose, Urine (Dipstick) 500 mg/dL (Negative); Leukocyte Negative (Negative); Protein, Urine (Dipstick) 30 mg/dL (Neg-Trace); Specific Gravity, Urine 1.025 (1.005-1.030)
[2025-10-17 12:36] LABS: CAUTI Indications for Culture Alt mental st,lethar; RBC/HPF 0-3 HPF (0-3)
[2025-10-17 12:37] LABS: Bacteria/HPF 2+ HPF (None Seen)
[2025-10-17 12:38] LABS: Urine Culture Reflex No No
[2025-10-17 14:50] VITALS: BMI 24.4
[2025-10-17] MEDS: Ezetimibe 10 MG TAB PO SCH (21:08)
[2025-10-18 07:22] LABS: #Basophils Less than 0.03 10x3/uL (0.0-0.2); #Eosinophils 0.08 10x3/uL (0.0-0.7); #Monocytes 0.72 10x3/uL (0.11-0.59); #Neutrophils 5.61 10x3/uL (1.40-6.50); %Basophils 0.2 % (0.0-1.0); %Eosinophils 1.0 % (0.0-10.0); %Lymphocytes 20.3 % (21.0-51.0); %Monocytes 8.9 % (0.0-10.0); %Neutrophils 69.2 % (42.0-75.0); Hematocrit 38.6 % (36.0-47.0); Hemoglobin 12.5 g/dL (12.0-16.0); Mean Corpuscular Hemoglobin 30.0 pg (27.0-31.0); Mean Corpuscular Volume 92.8 fL (78.0-98.0); Platelet Count 268 10x3/uL (130-400); Red Blood Cell (RBC) Count 4.16 mill/uL (4.20-5.40); White Blood Cell (WBC) Count 8.11 10x3/uL (4.8-10.8)
[2025-10-18 07:47] LABS: ALT (SGPT) 7 U/L (Less than 34); AST (SGOT) 14 U/L (11-34); Albumin 2.9 g/dL (3.1-4.5); Alkaline Phosphatase 163 U/L (40-110); Anion Gap 12 mmol/L (10-20); BUN (Urea Nitrogen) 25 mg/dL (9.8-20.1); Bilirubin, Total 1.4 mg/dL (0.3-1.2); Calc. Creatinine Clearance 46 mL/min (70-130); Calcium 9.9 mg/dL (7.8-10.44); Carbon Dioxide 22 mmol/L (23-31); Chloride 105 mmol/L (98-107); Globulin 2.8 g/dL (2.4-3.5); Glucose 241 mg/dL (83-110); Potassium 3.5 mmol/L (3.5-5.1); Sodium 135 mmol/L (136-145)
[2025-10-18] MEDS: BuPROPion XL 150 MG ER.TAB PO SCH (09:03)
[2025-10-18] MEDS: cefTRIAXone\\ROCEPHIN 1 GM in Sodium Chloride 0.9% 100 ML IVPB SCH (11:33)
[2025-10-18] MEDS: Insulin Glargine 30 UNITS/0.3 ML VIAL SC SCH (11:34)
[2025-10-18 11:39] LABS: Magnesium 1.4 mg/dL (1.6-2.6)
[2025-10-18] MEDS: Ondansetron PF 4 MG/2 ML Vial IVP PRN (13:40)
[2025-10-18] MEDS: Magnesium Sulfate In Water 4 GM in Premix 1 BAG IVPB SCH (14:20)
[2025-10-18 15:24] LABS: Vitamin D, 25 Hydroxy 18.3 ng/ml (> 30.0)
[2025-10-18] MEDS: Nystatin Powder 15 GM BOT TOP SCH ×2 (15:30→21:12)
[2025-10-18] MEDS: Potassium Phosphate 30 MMOL in Sodium Chloride 0.9% 250 ML 250 ML IVPB SCH (16:28)
[2025-10-18 17:06] LABS: Vitamin B12 Less than 148 pg/mL (211-911)
[2025-10-18] MEDS ORDERED: Cholecalciferol 1,000 UNITS (25 MCG) TAB PO SCH (21:00)
[2025-10-18] MEDS ORDERED: Cyanocobalamin (Vitamin B-12) 1,000 MCG TAB PO SCH (21:00)
[2025-10-18] MEDS ORDERED: Multivit, Therapeutic 1 TAB PO SCH (21:00)
[2025-10-18] MEDS: Folic Acid 1 MG TAB PO SCH (21:11)
[2025-10-18] MEDS: Ergocalciferol 1.25 MG(50,000 UNITS) CAP PO SCH (21:11)
[2025-10-18] MEDS: Thiamine 100 MG TAB PO SCH (21:11)
[2025-10-18] MEDS: Cyanocobalamin 1000 MCG/ML VIAL IM SCH (21:11)
[2025-10-18] MEDS: Senokot S 8.6-50 MG TAB PO SCH (21:11)
[2025-10-18] MEDS: NS 0.9% w/ 20 MEQ KCL 1,000 ML/1,000 ML BAG IV SCH (21:19)
[2025-10-19 05:32] LABS: #Basophils 0.03 10x3/uL (0.0-0.2); #Eosinophils 0.09 10x3/uL (0.0-0.7); #Monocytes 0.76 10x3/uL (0.11-0.59); #Neutrophils 4.48 10x3/uL (1.40-6.50); %Basophils 0.4 % (0.0-1.0); %Eosinophils 1.3 % (0.0-10.0); %Lymphocytes 24.6 % (21.0-51.0); %Monocytes 10.6 % (0.0-10.0); %Neutrophils 62.8 % (42.0-75.0); Hematocrit 37.6 % (36.0-47.0); Hemoglobin 12.4 g/dL (12.0-16.0); Mean Corpuscular Hemoglobin 30.2 pg (27.0-31.0); Mean Corpuscular Volume 91.7 fL (78.0-98.0); Platelet Count 259 10x3/uL (130-400); Red Blood Cell (RBC) Count 4.10 mill/uL (4.20-5.40); White Blood Cell (WBC) Count 7.14 10x3/uL (4.8-10.8)
[2025-10-19 05:45] LABS: Anion Gap 12 mmol/L (10-20); BUN (Urea Nitrogen) 27 mg/dL (9.8-20.1); Calc. Creatinine Clearance 39 mL/min (70-130); Calcium 9.4 mg/dL (7.8-10.44); Carbon Dioxide 26 mmol/L (23-31); Chloride 105 mmol/L (98-107); Glucose 110 mg/dL (83-110); Magnesium 2.2 mg/dL (1.6-2.6); Potassium 3.5 mmol/L (3.5-5.1); Sodium 139 mmol/L (136-145)
[2025-10-19] MEDS: Insulin Glargine 30 UNITS/0.3 ML VIAL SC SCH (08:14)
[2025-10-19] MEDS: Multivit, Therapeutic 1 TAB PO SCH (08:15)
[2025-10-19] MEDS ORDERED: Cyanocobalamin (Vitamin B-12) 1,000 MCG TAB PO SCH (09:00)
[2025-10-20 05:43] LABS: #Basophils Less than 0.03 10x3/uL (0.0-0.2); #Eosinophils 0.09 10x3/uL (0.0-0.7); #Monocytes 0.63 10x3/uL (0.11-0.59); #Neutrophils 3.99 10x3/uL (1.40-6.50); %Basophils 0.3 % (0.0-1.0); %Eosinophils 1.4 % (0.0-10.0); %Lymphocytes 24.4 % (21.0-51.0); %Monocytes 10.0 % (0.0-10.0); %Neutrophils 63.7 % (42.0-75.0); Hematocrit 33.3 % (36.0-47.0); Hemoglobin 11.2 g/dL (12.0-16.0); Mean Corpuscular Hemoglobin 30.9 pg (27.0-31.0); Mean Corpuscular Volume 91.7 fL (78.0-98.0); Platelet Count 229 10x3/uL (130-400); Red Blood Cell (RBC) Count 3.63 mill/uL (4.20-5.40); White Blood Cell (WBC) Count 6.27 10x3/uL (4.8-10.8)
[2025-10-20 05:55] LABS: Anion Gap 10 mmol/L (10-20); BUN (Urea Nitrogen) 25 mg/dL (9.8-20.1); Calc. Creatinine Clearance 41 mL/min (70-130); Calcium 9.3 mg/dL (7.8-10.44); Carbon Dioxide 27 mmol/L (23-31); Chloride 105 mmol/L (98-107); Glucose 182 mg/dL (83-110); Potassium 4.1 mmol/L (3.5-5.1); Sodium 138 mmol/L (136-145)
[2025-10-20] MEDS: Spironolactone 25 MG TAB PO SCH (08:17)
[2025-10-20] MEDS: Metoprolol Succinate XL 25 MG ER.TAB PO SCH (08:17)
[2025-10-20] MEDS: Magnesium Oxide 400 MG TAB PO SCH (21:06)
[2025-10-21] MEDS: FLU (Fluad Triv) 25-26 (65UP)PF 45 MCG/0.5 ML Syringe IM ONE (00:35)
[2025-10-21] MEDS: PNEUMOC 20-VAL CONJ-DIP CRM/PF 0.5 ML SYRINGE IM ONE (00:36)
[2025-10-21 06:56] LABS: #Basophils Less than 0.03 10x3/uL (0.0-0.2); #Eosinophils 0.10 10x3/uL (0.0-0.7); #Monocytes 0.50 10x3/uL (0.11-0.59); #Neutrophils 3.60 10x3/uL (1.40-6.50); %Basophils 0.2 % (0.0-1.0); %Eosinophils 1.8 % (0.0-10.0); %Lymphocytes 22.5 % (21.0-51.0); %Monocytes 9.2 % (0.0-10.0); %Neutrophils 65.9 % (42.0-75.0); Hematocrit 32.4 % (36.0-47.0); Hemoglobin 10.7 g/dL (12.0-16.0); Mean Corpuscular Hemoglobin 30.4 pg (27.0-31.0); Mean Corpuscular Volume 92.0 fL (78.0-98.0); Platelet Count 227 10x3/uL (130-400); Red Blood Cell (RBC) Count 3.52 mill/uL (4.20-5.40); White Blood Cell (WBC) Count 5.46 10x3/uL (4.8-10.8)
[2025-10-21 07:17] LABS: Anion Gap 15 mmol/L (10-20); BUN (Urea Nitrogen) 23 mg/dL (9.8-20.1); Calc. Creatinine Clearance 45 mL/min (70-130); Calcium 9.1 mg/dL (7.8-10.44); Carbon Dioxide 25 mmol/L (23-31); Chloride 103 mmol/L (98-107); Glucose 301 mg/dL (83-110); Potassium 4.1 mmol/L (3.5-5.1); Sodium 139 mmol/L (136-145)
[2025-10-21] MEDS: Furosemide 20 MG TAB PO SCH (09:10)
[2025-10-21] MEDS: Insulin Glargine 30 UNITS/0.3 ML VIAL SC SCH (09:10)
[2025-10-21] MEDS: Sulfameth/Trimethoprim DS 800-160mg TAB PO SCH (21:09)
[2025-10-23 08:20] VITALS: BP 148/70; TEMP 97.6
[2025-10-25] MEDS ORDERED: Ergocalciferol 1.25 MG(50,000 UNITS) CAP PO SCH (09:00)
== END 2025-10-23 15:56 | DRG 543 ==
LOC: ERS 13:14 → T4-B 16:55 → OBSVTOIN 10-17 13:22
PROVIDERS: ADMIT Internal Medicine; ATTEND Internal Medicine
DX: M80.0B2A Age-related osteoporosis with current pathological fracture, left pelvis, initial encounter for fracture (principal); E44.0 Moderate protein-calorie malnutrition; E87.1 Hypo-osmolality and hyponatremia; N39.0 Urinary tract infection, site not specified; I50.32 Chronic diastolic (congestive) heart failure; E11.65 Type 2 diabetes mellitus with hyperglycemia; M79.605 Pain in left leg; I48.91 Unspecified atrial fibrillation; I25.10 Atherosclerotic heart disease of native coronary artery without angina pectoris; F32.A Depression, unspecified; I11.0 Hypertensive heart disease with heart failure; Z96.641 Presence of right artificial hip joint; E87.6 Hypokalemia; E83.42 Hypomagnesemia; M54.9 Dorsalgia, unspecified; Z68.24 Body mass index [BMI] 24.0-24.9, adult; B96.20 Unspecified Escherichia coli [E. coli] as the cause of diseases classified elsewhere; E11.51 Type 2 diabetes mellitus with diabetic peripheral angiopathy without gangrene; Z90.49 Acquired absence of other specified parts of digestive tract; Z98.891 History of uterine scar from previous surgery; Z95.1 Presence of aortocoronary bypass graft; Z95.5 Presence of coronary angioplasty implant and graft; Z95.0 Presence of cardiac pacemaker; Z88.5 Allergy status to narcotic agent; Z88.8 Allergy status to other drugs, medicaments and biological substances; Z79.890 Hormone replacement therapy
CPT/HCPCS: 36415; 36416; 70450; 71045; 72170; 72192; 80048; 80053; 81001; 82010; 82306; 82607; 82805; 83036; 83605; 83690; 83735; 83880; 83930; 84100; 84443; 84484; 85025; 87077; 87086; 87186; 93005; 93923; G0378; J0696; J1650; J1815; J2405; J2550; J3420; J3475; J3480; J7050